=== PATIENT | male | born 1945 | race Native Hawaiian/Other Pacific Islander ===

== ENCOUNTER 2018-04-01 08:03 | Inpatient (IN) | payer MEDICAID ==
--- NOTE | 2018-04-01 08:33 | C.PDOC ---
History Of Present Illness 72 year old male presents to the ED with a chief complaint of persistent headache associated with dizziness that started early March. The patient reports prior ED visit for similar, he was diagnosed with vertigo. Per family, CT of the head was done, results were negative. Now the patient notes the headache is associated with neck pain. Denies vision changes, fever, chills, nausea, vomiting, and any other associated symptoms. Chief Complaint (Nursing): Headache History Per: Patient, Family History/Exam Limitations: no limitations Onset/Duration Of Symptoms: Days (x2 weeks) Current Symptoms Are (Timing): Still Present Associated Symptoms: denies: Nausea, Vomiting Recent travel outside of the [place]: No Past Medical History Reviewed: Historical Data, Nursing Documentation, Vital Signs Vital Signs: Last Vital Signs Temp 97.9 F 04/01/18 08:12 Pulse 105 H 04/01/18 08:12 Resp 18 04/01/18 08:12 BP 147/74 04/01/18 08:12 Pulse Ox 100 04/01/18 08:12 - Medical History PMH: Diabetes, HTN, Hyperlipidemia Family History: States: Unknown Family Hx - Social History Hx Tobacco Use: No Hx Alcohol Use: No Hx Substance Use: No - Immunization History Hx Tetanus Toxoid Vaccination: No Hx Influenza Vaccination: Yes Hx Pneumococcal Vaccination: Yes Review Of Systems Except As Marked, All Systems Reviewed And Found Negative. Constitutional: Negative for: Fever, Chills Eyes: Negative for: Vision Change Gastrointestinal: Negative for: Nausea, Vomiting Musculoskeletal: Positive for: Neck Pain (secondary to headache.) Neurological: Positive for: Headache, Dizziness Physical Exam - Physical Exam Appears: Well, Non-toxic, No Acute Distress Skin: Normal Color, Warm, Dry Head: Atraumatic, Normacephalic Eye(s): bilateral: Normal Inspection Oral Mucosa: Moist Neck: Normal ROM, Supple Chest: Symmetrical, No Deformity Cardiovascular: Rhythm Regular, No Murmur Respiratory: Normal Breath Sounds, No Rales, No Rhonchi, No Wheezing Gastrointestinal/Abdominal: Normal Exam, Soft, No Tenderness Extremity: Bilateral: Atraumatic, Normal Color And Temperature, Normal ROM ED Course And Treatment - Laboratory Results Result Diagrams: 04/01/18 08:54 04/01/18 08:54 ECG Rhythm: Sinus Rhythm Interpretation Of ECG: Incomplete right bundle. No ST elevation. Rate From EC O2 Sat by Pulse Oximetry: 100 (RA) Pulse Ox Interpretation: Normal Critical Care Time - Critical Care Note Total Time (in mins): 47 Documented critical care: time excludes all time spent performing seperately billable procedures. NIHSS Stroke Scale - How Severe is the Stoke Level of Consciousness: 0=Alert LOC to Questions: 0=Both comments correct LOC to commands: 0=Obeys both correctly Best Gaze: 0=Normal Visual: 0=No visual loss Facial: 0=Normal Motor Arm - Left: 0=No drift Motor Arm - Right: 0=No drift Motor Leg - Left: 0=No drift Motor Leg - Right: 0=No drift Limb Ataxia: 0=Absent Sensory: 0=Normal Best Language: 0=No aphasia Dysarthia: 0=Normal articulation Extinction & Inattention (Neglect): 0=Normal, no object Score: 0 Medical Decision Making Medical Decision Making: Initial plan: -CT Cervical Spine w/o contrast -CT Head w/o contrast -Blood sent -Reglan -Toradol -Urinalysis Progress/Update: CXR ordered. Received call from radiology, acute and chronic subdural hematoma. 9:50am : Paged Dr. Dye, left message with operating service. 10:01am: Spoke with Dr. Echevarria, recommended to admit patient to ICU, will consult. 10:09am: Spoke with Dr. Rey De Leon, accepted to ICU. 10:12am: Spoke with Dr. Carroll, accepted for admission. 10:26am: Dr. Rey Rizzo requested CT angio of head and neck. Disposition Discussed With .: Rogelio Carroll Doctor Will See Patient In The: Hospital - Disposition Disposition: HOSPITALIZED Disposition Time: 10:16 Condition: GUARDED Forms: [facility] (Armenian) - Clinical Impression Clinical Impression: Subdural hematoma - Scribe Statement The provider has reviewed the documentation as recorded by the Scribe (Jesi De Leon) Provider Attestation: All medical record entries made by the Scribe were at my direction and personally dictated by me. I have reviewed the chart and agree that the record accurately reflects my personal performance of the history, physical exam, medical decision making, and the department course for this patient. I have also personally directed, reviewed, and agree with the discharge instructions and disposition.
[2018-04-01 08:57] LABS: BASO # 0.1 K/uL (0.0-0.2); BASO % 0.5 % (0.0-2.0); EOS # 0.3 K/uL (0.0-0.7); EOS % 2.8 % (0.0-4.0); HEMOGLOBIN 11.6 g/dL (12.0-18.0); LYMPH # 5.3 K/uL (1.0-4.3); LYMPH % 48.9 % (20.0-40.0); MEAN CELL VOLUME 70.6 fL (80.0-94.0); MEAN CORPUSCULAR HEMOGLOBIN 22.2 pg (27.0-31.0); MEAN CORPUSCULAR HGB CONC 31.5 g/dL (33.0-37.0); MEAN PLATELET VOLUME 7.5 fL (7.2-11.7); MONO # 0.4 K/uL (0.0-0.8); MONO % 3.8 % (0.0-10.0); NEUT # 4.8 K/uL (1.8-7.0); RBC 5.23 Mil/uL (4.40-5.90)
[2018-04-01 08:58] LABS: WHITE BLOOD COUNT 10.9 K/uL (4.8-10.8)
[2018-04-01 09:05] LABS: URINE BILIRUBIN NEGATIVE (NEGATIVE); URINE BLOOD NEGATIVE (NEGATIVE); URINE CLARITY Clear (Clear); URINE COLOR Yellow (YELLOW); URINE GLUCOSE (UA) NORMAL (Normal); URINE LEUKOCYTE ESTERASE NEG Leu/uL (Negative); URINE PROTEIN NEGATIVE (NEGATIVE); URINE UROBILINOGEN NORMAL mg/dL (0.2-1.0)
[2018-04-01 09:18] LABS: ALB/GLOB RATIO 1.8 (1.0-2.1); ALBUMIN 4.8 g/dL (3.5-5.0); ALT/SGPT 88 U/L (21-72); AST/SGOT 49 U/L (17-59); BLOOD UREA NITROGEN 17 mg/dL (9-20); CALCIUM 9.2 mg/dl (8.6-10.4); GFR NON-AFRICAN AMERICAN > 60
--- NOTE | 2018-04-01 09:49 | CT ---
Date of service: 04/01/2018 PROCEDURE: CT HEAD WITHOUT CONTRAST. HISTORY: R/O Bleed COMPARISON: None available. TECHNIQUE: Axial computed tomography images were obtained through the head/brain without intravenous contrast. Radiation dose: Total exam DLP = 1145.85 mGy-cm. This CT exam was performed using one or more of the following dose reduction techniques: Automated exposure control, adjustment of the mA and/or kV according to patient size, and/or use of iterative reconstruction technique. FINDINGS: HEMORRHAGE: There is moderate-sized left frontal parietal convexity acute on chronic subdural hematoma which measures 1.8 cm in maximum width. There is mild mass effect on the underlying frontal and parietal lobes with effacement of the cortical sulci, mass effect on the left lateral ventricle and 4 mm midline shift from left to right. There are coarse atherosclerotic calcifications in the cavernous carotid arteries. The BRAIN: [place]-white matter differentiation is preserved. There is no territorial infarction. The midline sagittal structures are normal. VENTRICLES: The ventricles are normal in size, shape and configuration. CALVARIUM: There is no calvarial fracture or extracranial soft tissue swelling. PARANASAL SINUSES: Predominantly clear. MASTOID AIR CELLS: Predominantly clear. OTHER FINDINGS: None. IMPRESSION: Moderate sized left frontal parietal convexity acute on chronic subdural hematoma measuring 1.8 cm in maximum with with mild local and regional mass effect and 4 mm midline shift from left to right. Critical findings were discussed with Dr. Clemente Benedict in the ER on 04/01/2018 at 9:40 a.m.
--- NOTE | 2018-04-01 10:00 | CT ---
Date of service: 04/01/2018 PROCEDURE: CT Cervical Spine without contrast HISTORY: neck pain COMPARISON: None available. TECHNIQUE: Axial computed tomography images were obtained of the cervical spine without the use of intravenous contrast. Coronal and sagittal reformatted images were created and reviewed. Radiation dose: Total exam DLP = 642.62 mGy-cm. This CT exam was performed using one or more of the following dose reduction techniques: Automated exposure control, adjustment of the mA and/or kV according to patient size, and/or use of iterative reconstruction technique. FINDINGS: VERTEBRAE: There is normal alignment of the cervical vertebral bodies. There is straightening of the cervical spine with loss of normal cervical lordosis. Vertebral height is normal. Bone mineralization is normal. There is no acute fracture or traumatic anterior listhesis. The craniocervical junction is normal. The atlantoaxial joint normal. DISCS/SPINAL CANAL/NEURAL FORAMINA: There is multilevel degenerative disc disease due to combination of disc osteophyte complexes, uncovertebral joint hypertrophy and multilevel facet arthropathy with variable degree of neural foraminal narrowing without spinal canal stenosis. PARASPINAL SOFT TISSUES: No prevertebral soft tissue thickening. The paraspinous soft tissues are normal. OTHER FINDINGS: No apical pneumothorax. There is a 4 mm nodule in the left upper lobe. IMPRESSION: No acute fracture or traumatic anterior listhesis. 4 mm nodule in the left upper lobe. A dedicated CT scan of the thorax on a nonemergent basis is recommended for complete evaluation of the lungs. The final report is tagged to the PA review folder.
--- NOTE | 2018-04-01 10:16 | RAD ---
Date of service: 04/01/2018 HISTORY: admit COMPARISON: 01/27/2015 FINDINGS: LUNGS: The lungs are well inflated and clear. There is mild pulmonary venous congestion. No focal consolidation. There are tiny calcified granulomas in the right upper lobe. PLEURA: No pleural effusions or pneumothorax. CARDIOVASCULAR: The heart is normal in size. No aortic atherosclerotic calcifications present. OSSEOUS STRUCTURES: Within normal limits for the patient's age. VISUALIZED UPPER ABDOMEN: Normal. OTHER FINDINGS: None. IMPRESSION: No active pulmonary disease. No interval change.
[2018-04-01 10:17] LABS: PROTHROMBIN TIME 10.9 SECONDS (9.7-12.2)
--- NOTE | 2018-04-01 10:47 | CP.PCM.CON ---
History of Present Illness - History of Present Illness History of Present Illness: 72 y/o male with pmx of HTN, DM and hyperurecemia presents to hospital with c/o headaches worsening over last 2 weeks. Patient went to a hospital in [facility] where patient had a CT head and was discharged. Patient's headaches worsening and come to ER today. Denies any visual disturbance, denies any bounding pain, deneis any numbness or tingling. Pmx: HTN, DM Psurg hs: Allergies: NKDA -SH:denies etoh, deneis illicit drug use Review of Systems - Review of Systems All systems: reviewed and no additional remarkable complaints except Past Patient History - Infectious Disease Hx of Infectious Diseases: None - Tetanus Immunizations Tetanus Immunization: Unknown - Past Medical History & Family History Past Family History: Reviewed and not pertinent - Past Social History Smoking Status: Never Smoked - CARDIAC Hx Hypertension: Yes - ENDOCRINE/METABOLIC Hx Diabetes Mellitus Type 1: Yes - PSYCHIATRIC Hx Substance Use: No - ANESTHESIA Hx Anesthesia: No Meds Allergies/Adverse Reactions: Allergies Allergy/AdvReac Type Severity Reaction Status Date / Time No Known Allergies Allergy Unverified 11/27/12 22:42 Physical Exam - Head Exam Head Exam: ATRAUMATIC, NORMAL INSPECTION, NORMOCEPHALIC - Eye Exam Eye Exam: EOMI Pupil Exam: NORMAL ACCOMODATION, PERRL - ENT Exam ENT Exam: Mucous Membranes Moist - Respiratory Exam Respiratory Exam: Clear to Auscultation Bilateral, NORMAL BREATHING PATTERN - Cardiovascular Exam Cardiovascular Exam: REGULAR RHYTHM, +S1, +S2, Systolic Murmur - GI/Abdominal Exam GI & Abdominal Exam: Normal Bowel Sounds, Soft. absent: Tenderness - Extremities Exam Extremities exam: Positive for: normal inspection. Negative for: pedal edema - Neurological Exam Neurological exam: Alert, CN II-XII Intact, Oriented x3 - Skin Skin Exam: Normal Color, Warm Results - Vital Signs Recent Vital Signs: Last Vital Signs Temp 97.9 F 04/01/18 08:12 Pulse 97 H 04/01/18 10:09 Resp 17 04/01/18 10:09 BP 132/75 04/01/18 10:09 Pulse Ox 100 04/01/18 10:28 - Labs Result Diagrams: 04/01/18 08:54 04/01/18 08:54 Labs: Laboratory Results - last 24 hr 0104/01/18 04/01/18 08:54 08:54 09:00 WBC 10.9 H D RBC 5.23 Hgb 11.6 L Hct 36.9 MCV 70.6 L MCH 22.2 L MCHC 31.5 L RDW 15.0 H Plt Count 269 MPV 7.5 Neut % (Auto) 44.0 L Lymph % (Auto) 48.9 H [place] % (Auto) 3.8 Eos % (Auto) 2.8 Baso % (Auto) 0.5 Neut # (Auto) 4.8 Lymph # (Auto) 5.3 H [place] # (Auto) 0.4 Eos # (Auto) 0.3 Baso # (Auto) 0.1 PT INR APTT Sodium 140 Potassium 4.7 Chloride 105 Carbon Dioxide 25 Anion Gap 15 BUN 17 Creatinine 1.1 Est GFR ( Amer) > 60 Est GFR (Non-Af Amer) > 60 POC Glucose (mg/dL) Random Glucose 100 Calcium 9.2 Total Bilirubin 0.7 AST 49 ALT 88 H D Alkaline Phosphatase 80 Total Protein 7.5 Albumin 4.8 Globulin 2.7 Albumin/Globulin Ratio 1.8 Urine Color Yellow Urine Clarity Clear Urine pH 5.0 Ur Specific [place] 1.008 Urine Protein Negative Urine Glucose (UA) Normal Urine Ketones Negative Urine Blood Negative Urine Nitrate Negative Urine Bilirubin Negative Urine Urobilinogen Normal Ur Leukocyte Esterase Neg Urine WBC (Auto) < 1 Urine RBC (Auto) < 1 Blood Type Antibody Screen 04/01/18 04/01/18 04/01/18 10:03 10:03 10:36 WBC RBC Hgb Hct MCV MCH MCHC RDW Plt Count MPV Neut % (Auto) Lymph % (Auto) [place] % (Auto) Eos % (Auto) Baso % (Auto) Neut # (Auto) Lymph # (Auto) [place] # (Auto) Eos # (Auto) Baso # (Auto) PT 10.9 INR 1.0 APTT 31 Sodium Potassium Chloride Carbon Dioxide Anion Gap BUN Creatinine Est GFR ( Amer) Est GFR (Non-Af Amer) POC Glucose (mg/dL) 98 Random Glucose Calcium Total Bilirubin AST ALT Alkaline Phosphatase Total Protein Albumin Globulin Albumin/Globulin Ratio Urine Color Urine Clarity Urine pH Ur Specific [place] Urine Protein Urine Glucose (UA) Urine Ketones Urine Blood Urine Nitrate Urine Bilirubin Urine Urobilinogen Ur Leukocyte Esterase Urine WBC (Auto) Urine RBC (Auto) Blood Type O POSITIVE Antibody Screen Negative Assessment & Plan - Assessment and Plan (Free Text) Assessment: HEADache: suspect chronic subdural (suspect slow increase over last 2 weeks), check CT head with IV contrast r/o AV malformation, obtain MRI STAT -NPO -BGm q6hrs -q1hrs neuro exam -monitor BP to keep SBP <120 -neurosurgery eval -avoid antiplatelet, avoid anticoagulants seizure ppx: keppra x 5days -DVT scds -pud ppx protonix Patient remains hemodynamically stable. -multiple diagnostic tests pending Prognsois guarded - Date & Time Date: 04/01/18 Time: 10:51
[2018-04-01] MEDS ORDERED: Sodium Chloride 0.9% 1,000 ML IV SCH (11:00)
[2018-04-01] MEDS ORDERED: Iodixanol 320 MG/ML 100 ML BOTTLE IV ONE (11:37)
--- NOTE | 2018-04-01 12:42 | CT ---
Date of service: 04/01/2018 PROCEDURE: CTA HEAD AND NECK WITH CONTRAST HISTORY: Intracranial bleeding COMPARISON: None available. TECHNIQUE: Initial noncontrast head CT was performed. Subsequently, CT angiogram of the head and neck were performed after the intravenous administration of 80 mL of Omnipaque 350. Contiguous 1.5mm thick images were obtained in the axial plane of the neck. 2-D coronal and sagittal MPR images were obtained. Imaging postprocessing was performed with 3-D images also obtained. A delayed contrast head CT was also obtained. This CT exam was performed using one or more of the following dose reduction techniques: Automated exposure control, adjustment of the mA and/or kV according to patient size, and/or use of iterative reconstruction technique. Contrast dose: 100 mL Visipaque 320 Radiation dose: Total exam DLP = 665.33 mGy-cm. FINDINGS: HEAD: Right: The intracranial internal carotid artery, and anterior and middle cerebral arteries are widely patent. Left: The intracranial internal carotid artery, and anterior and middle cerebral arteries are widely patent. Posterior circulation: The visualized intracranial vertebral arteries, basilar artery and posterior cerebral arteries are widely patent. There is no endoluminal filling defect to suggest thrombus. There is no intracranial saccular aneurysm. NECK: There is a three vessel aortic arch. There is no stenosis at the origins of the great vessels at the level of the aortic arch. There are coarse atherosclerotic calcifications in the carotid bulbs and left proximal internal carotid artery. There are mild eccentric soft plaques in the left proximal internal carotid artery.. Right Carotid: On the right, the common carotid, internal carotid and external carotid arteries are widely patent. There is no hemodynamically significant stenosis in the internal carotid artery by NASCET criteria. Left Carotid: On the left, the common carotid, internal carotid and external carotid arteries are widely patent. There is no hemodynamically significant stenosis in the internal carotid artery by NASCET criteria. The vertebral arteries are widely patent. The visualized soft tissues of the neck are normal. The lung apices are clear. IMPRESSION: 1. No evidence of endoluminal thrombus,occlusion or definite significant stenosis in the intracranial arteries. 2. No evidence of hemodynamically significant stenosis in the internal carotid arteries. 3. Patent bilateral vertebral arteries.
[2018-04-01] MEDS ORDERED: Dextrose 50% SYRINGE Inj (50 ml) ONE (18:30)
[2018-04-01] MEDS ORDERED: Dextrose 50% SYRINGE Inj (50 ml) IVP STA (18:31)
--- NOTE | 2018-04-01 22:24 | CP.PCM.HP ---
Present on Admission - Present on Admission Any Indicators Present on Admission: No Past Patient History - Infectious Disease Hx of Infectious Diseases: None - Tetanus Immunizations Tetanus Immunization: Unknown - Past Medical History & Family History Past Medical History?: Yes - Past Social History Smoking Status: Never Smoked - CARDIAC Hx Cardiac Disorders: Yes Hx Angina: No Hx Atrial Fibrillation: No Hx Cardia Arrhythmia: No Hx Circulatory Problems: No Hx Congestive Heart Failure: No Hx Heart Attack: No Hx Heart Murmur: No Hx Heart Transplant: No Hx Hypercholesterolemia: Yes Hx Hypertension: Yes Hx Hypotension: No Hx Internal Defibrillator: No Hx Mitral Valve Prolapse: No Hx Pacemaker: No Hx Peripheral Edema: No Hx Peripheral Vascular Disease: No - PULMONARY Hx Respiratory Disorders: No - NEUROLOGICAL Hx Neurological Disorder: Yes Hx Dizziness: Yes Hx Vertigo: Yes Other/Comment: Subdural hematoma - HEENT Hx HEENT Problems: No - RENAL Hx Chronic Kidney Disease: No - ENDOCRINE/METABOLIC Hx Endocrine Disorders: Yes Hx Diabetes Mellitus Type 2: Yes - HEMATOLOGICAL/ONCOLOGICAL Hx Blood Disorders: No - INTEGUMENTARY Hx Dermatological Problems: Yes Other/Comment: Prior bx of lump on back - MUSCULOSKELETAL/RHEUMATOLOGICAL Hx Musculoskeletal Disorders: No Hx Falls: No - GASTROINTESTINAL Hx Gastrointestinal Disorders: No Other/Comment: Prior endoscopy/colonoscopy - GENITOURINARY/GYNECOLOGICAL Hx Genitourinary Disorders: No - PSYCHIATRIC Hx Psychophysiologic Disorder: No Hx Substance Use: No - SURGICAL HISTORY Hx Surgeries: No - ANESTHESIA Hx Anesthesia: Yes Hx Anesthesia Reactions: No Hx Malignant Hyperthermia: No Has any member of the family had a problem w/ anesthesia?: No Meds Allergies/Adverse Reactions: Allergies Allergy/AdvReac Type Severity Reaction Status Date / Time No Known Allergies Allergy Unverified 11/27/12 22:42 Results - Vital Signs Recent Vital Signs: Last Vital Signs Temp 98.9 F 04/01/18 20:00 Pulse 75 04/01/18 21:20 Resp 12 04/01/18 21:20 BP 117/68 04/01/18 20:58 Pulse Ox 98 04/01/18 21:20 - Labs Result Diagrams: 04/06/18 06:24 04/06/18 06:21 Labs: Laboratory Results - last 24 hr 04/01/18 04/01/18 04/01/18 08:54 08:54 09:00 WBC 10.9 H D RBC 5.23 Hgb 11.6 L Hct 36.9 MCV 70.6 L MCH 22.2 L MCHC 31.5 L RDW 15.0 H Plt Count 269 MPV 7.5 Neut % (Auto) 44.0 L Lymph % (Auto) 48.9 H [place] % (Auto) 3.8 Eos % (Auto) 2.8 Baso % (Auto) 0.5 Neut # (Auto) 4.8 Lymph # (Auto) 5.3 H [place] # (Auto) 0.4 Eos # (Auto) 0.3 Baso # (Auto) 0.1 PT INR APTT Sodium 140 Potassium 4.7 Chloride 105 Carbon Dioxide 25 Anion Gap 15 BUN 17 Creatinine 1.1 Est GFR ( Amer) > 60 Est GFR (Non-Af Amer) > 60 POC Glucose (mg/dL) Random Glucose 100 Calcium 9.2 Total Bilirubin 0.7 AST 49 ALT 88 H D Alkaline Phosphatase 80 Total Protein 7.5 Albumin 4.8 Globulin 2.7 Albumin/Globulin Ratio 1.8 Urine Color Yellow Urine Clarity Clear Urine pH 5.0 Ur Specific [place] 1.008 Urine Protein Negative Urine Glucose (UA) Normal Urine Ketones Negative Urine Blood Negative Urine Nitrate Negative Urine Bilirubin Negative Urine Urobilinogen Normal Ur Leukocyte Esterase Neg Urine WBC (Auto) < 1 Urine RBC (Auto) < 1 Blood Type Antibody Screen 04/01/18 04/01/18 04/01/18 10:03 10:03 10:36 WBC RBC Hgb Hct MCV MCH MCHC RDW Plt Count MPV Neut % (Auto) Lymph % (Auto) [place] % (Auto) Eos % (Auto) Baso % (Auto) Neut # (Auto) Lymph # (Auto) [place] # (Auto) Eos # (Auto) Baso # (Auto) PT 10.9 INR 1.0 APTT 31 Sodium Potassium Chloride Carbon Dioxide Anion Gap BUN Creatinine Est GFR ( Amer) Est GFR (Non-Af Amer) POC Glucose (mg/dL) 98 Random Glucose Calcium Total Bilirubin AST ALT Alkaline Phosphatase Total Protein Albumin Globulin Albumin/Globulin Ratio Urine Color Urine Clarity Urine pH Ur Specific [place] Urine Protein Urine Glucose (UA) Urine Ketones Urine Blood Urine Nitrate Urine Bilirubin Urine Urobilinogen Ur Leukocyte Esterase Urine WBC (Auto) Urine RBC (Auto) Blood Type O POSITIVE Antibody Screen Negative 01/13/19 01/13/19 01/13/19 18:16 18:18 18:47 WBC RBC Hgb Hct MCV MCH MCHC RDW Plt Count MPV Neut % (Auto) Lymph % (Auto) [place] % (Auto) Eos % (Auto) Baso % (Auto) Neut # (Auto) Lymph # (Auto) [place] # (Auto) Eos # (Auto) Baso # (Auto) PT INR APTT Sodium Potassium Chloride Carbon Dioxide Anion Gap BUN Creatinine Est GFR ( Amer) Est GFR (Non-Af Amer) POC Glucose (mg/dL) 69 75 203 H Random Glucose Calcium Total Bilirubin AST ALT Alkaline Phosphatase Total Protein Albumin Globulin Albumin/Globulin Ratio Urine Color Urine Clarity Urine pH Ur Specific [place] Urine Protein Urine Glucose (UA) Urine Ketones Urine Blood Urine Nitrate Urine Bilirubin Urine Urobilinogen Ur Leukocyte Esterase Urine WBC (Auto) Urine RBC (Auto) Blood Type Antibody Screen
[2018-04-01] MEDS ORDERED: HYDROmorphone 0.5 mg/0.5 ml ISec IVP STA (23:14)
[2018-04-01] MEDS: Dextrose 5%/0.9% NS 1,000 ML IV SCH (23:15)
[2018-04-01] MEDS: Dextrose 5%/0.9% NS 1,000 ML IV ONE (23:20)
[2018-04-02] MEDS ORDERED: HYDROmorphone 0.5 mg/0.5 ml ISec IVP STA ×2 (03:40→20:24)
[2018-04-02 06:21] LABS: BASO # 0.1 K/uL (0.0-0.2); BASO % 0.6 % (0.0-2.0); EOS # 0.3 K/uL (0.0-0.7); EOS % 2.4 % (0.0-4.0); HEMOGLOBIN 11.2 g/dL (12.0-18.0); LYMPH # 6.1 K/uL (1.0-4.3); LYMPH % 53.1 % (20.0-40.0); MEAN CELL VOLUME 70.5 fL (80.0-94.0); MEAN CORPUSCULAR HEMOGLOBIN 22.2 pg (27.0-31.0); MEAN CORPUSCULAR HGB CONC 31.5 g/dL (33.0-37.0); MEAN PLATELET VOLUME 8.1 fL (7.2-11.7); MONO # 0.5 K/uL (0.0-0.8); MONO % 4.5 % (0.0-10.0); NEUT # 4.5 K/uL (1.8-7.0); NEUT % 39.4 % (50.0-75.0); NRBC % 0.1 % (0.0-2.0); RBC 5.04 Mil/uL (4.40-5.90); RED CELL DISTRIBUTION WIDTH 14.9 % (11.5-14.5); WHITE BLOOD COUNT 11.4 K/uL (4.8-10.8)
--- NOTE | 2018-04-02 06:25 | HP ---
CHIEF COMPLAINT: Headache for last two weeks. HISTORY OF PRESENT ILLNESS: This is a 72-year-old [place] male with history of diabetes, hypertension who is compliant with his medication and followup, and he developed headache about two weeks ago. According to the patient in the past, he did visit emergency room and then he presented to emergency room yesterday again, and according to the patient, CT head was done and it was discharged. Now, his headache got worse, he came to emergency room. He denies any history of blurring of vision, photophobia. He has some neck pain, but he denies any neck rigidity. He denies any fever, chills, rigors. He denies any history of loss of consciousness. He denies any history of tongue bite, seizure like activity. He denies any tremors, shaking. He denies any alcohol use. He denies any cough, sore throat, runny nose. He denies any polyuria, polydipsia polyphagia. He denies any history of hematuria or pyuria. He denies any sneezing, itching eyes, or itching nose. No abdominal pain, no joint pain, no hip pain. No fever. ALLERGIES: UNKNOWN ALLERGIES. PAST MEDICAL HISTORY: Diabetes, hypertension. SOCIAL HISTORY: Nonsmoker. Non-ETOH user. CURRENT MEDICATIONS: Lipitor, Protonix, allopurinol, lisinopril, glimepiride, metformin. PHYSICAL EXAMINATION: GENERAL: An elderly male, in no acute distress, comfortable. VITAL SIGNS: Blood pressure 117/68, pulse 77, respiratory rate 14, temperature 98. SKIN: Senile turgor. No bruits. No purpura. No petechiae. No ecchymosis. No skin cuts. HEENT: Atraumatic and normocephalic. Negative pallor. Negative jaundice. Extraocular movements are intact. NECK: Supple. No JVD. No lymph nodes. No thyromegaly. No carotid bruits. CHEST WALL: Bilateral symmetrical expansion. LUNGS: Bilaterally equal. No rale, no rhonchi. CARDIOVASCULAR SYSTEM: PMI not localized. S1 and S2 regular. No heave, no thrill. ABDOMEN: Soft, nontender. Bowel sounds are positive. RECTAL: Unable to do. The patient is not willing to cooperate. EXTREMITIES: No clubbing, cyanosis, or edema. CENTRAL NERVOUS SYSTEM: The patient is awake, alert, and oriented x3. Cranial nerves II through XII are normal. Power 5/5 x4. Plantars are downgoing. The patient's gait is unsteady, and he gets dizzy upon standing. ASSESSMENT: 1. Subdural hematoma, etiology unknown, there is no history of injury, ____ like a chronic subdural hematoma, rule out atriovenous malformation. 2. Hypertension. 3. Diabetes. 4. Gout. PLAN: Admit. Detailed orders written. Seen and examined. Rogelio Carroll MD
[2018-04-02 06:26] LABS: INR 1.1; PROTHROMBIN TIME 11.5 SECONDS (9.7-12.2)
[2018-04-02 06:33] LABS: ALB/GLOB RATIO 1.7 (1.0-2.1); ALBUMIN 4.4 g/dL (3.5-5.0); ALT/SGPT 75 U/L (21-72); AST/SGOT 45 U/L (17-59); BLOOD UREA NITROGEN 16 mg/dL (9-20); CALCIUM 8.5 mg/dl (8.6-10.4); GFR NON-AFRICAN AMERICAN > 60
[2018-04-02] MEDS ORDERED: Bacitracin 50,000 UNIT in Sodium Chloride 0.9% Irrig 1,000 ML IR SCH (07:30)
--- NOTE | 2018-04-02 07:30 | CP.PCM.PCO ---
Physician Communication Note - Physician Communication Note Physician Communication Note: medically stable for OR with vaerage risk for GA
[2018-04-02] MEDS ORDERED: cefTRIAXone 1 gm 1 GM/100 ML BAG IVPB ONE (07:32)
[2018-04-02] MEDS ORDERED: Lidocaine/Epinephrine 1% 1:100000 10 ML IJ ONE (07:32)
[2018-04-02] MEDS ORDERED: Thrombin Topical 5,000 Int Units Spray Kit ONE (07:32)
[2018-04-02] MEDS ORDERED: Absorbable Gelatin Sponge Size 12-7 ONE ×2 (07:33→08:41)
[2018-04-02] MEDS ORDERED: Bacitracin Ointment 30 GM TUBE ONE (07:52)
[2018-04-02] MEDS ORDERED: Bacitracin 150,000 UNIT in Sodium Chloride 0.9% Irrig 3,000 ML IR SCH (07:53)
[2018-04-02] MEDS ORDERED: Propofol 10 mg/ml Inj (20 ML) ONE (08:03)
[2018-04-02] MEDS ORDERED: Succinylcholine Chloride 20 mg/ml Syr (5 ml) IV ONE (08:04)
[2018-04-02] MEDS ORDERED: Rocuronium 10 mg/ml (5 ml) ONE (08:04)
[2018-04-02] MEDS ORDERED: Lidocaine Hydrochloride 5 ML INJ ONE (08:09)
--- NOTE | 2018-04-02 08:10 | CON ---
DATE: 04/01/2018 HISTORY OF PRESENT ILLNESS: This is a 72-year-old gentleman who has been suffering with headache and neck pain for a couple of weeks. Apparently, he presented himself with the same symptoms to [facility] in [place] on , had a CT that he was told was normal and sent out. In any case, his symptoms have persisted worsened over the past few days, complains of intense left-sided headache with some left-sided neck pain. Denies any motor or sensory symptoms or other neurological phenomenon. PAST MEDICAL HISTORY: Most significant for gout, hypertension and diabetes. MEDICATIONS: He is on oral agents. Medications are documented in the EMR. The rest of his medical records reviewed in the EMR. PHYSICAL EXAMINATION NEUROLOGIC: He has a GCS of 15. Bright, awake, alert. He . He does answer questions appropriately. According to his daughter, his speech is appropriate. Pupils are equal and reactive. EOMs are full. Face is symmetric. He has 5/5 strength throughout. He has very minimal right pronator drift. Sensory exam is grossly intact. Reflexes within normal limits. Gait not tested here in the ER. DIAGNOSTIC DATA: CT of the brain shows a moderate-sized left frontal mixed-density subdural hematoma. The majority of it is subacute with a small amount of acute component. There is impressive compression of the left ventricle and about 4 mm of midline shift. IMPRESSION AND PLAN: At one hand, the patient only has a headache, he is neurologically intact; however, this is a pretty good size of subdural. I had an extensive conversation with the patient and his daughter, indicating that this really should be evacuated based on the symptoms, the size and the risk of further bleeding. I went through the nature of this recommendation with them including alternative, potential risks and complications of the surgery, chance of success, hospitalization and recovery time. I answered all of their questions. I was confident that they fully understood. They agreed to proceed. We will attempt to have this scheduled for tomorrow. In the interim, he will be admitted to the ICU and seen by their staff and hopefully cleared for the surgery from the medical standpoint. Gavino Hardin MD
[2018-04-02] MEDS ORDERED: Neostigmine 1:1000 (1 mg/ml) Inj ONE (09:10)
[2018-04-02] MEDS ORDERED: Labetalol 5mg/ml (4ml) ONE (09:11)
[2018-04-02] MEDS: Dextrose 5%/0.9% NS 1,000 ML IV SCH (12:50)
[2018-04-02] MEDS: Dextrose 5%/0.9% NS 1,000 ML IV ONE ×2 (17:00→18:00)
--- NOTE | 2018-04-02 21:31 | CARD ---
APPROVED REPORT Date of service: 04/01/2018 EKG Measurement Heart [id number] <Conclusion> Normal sinus rhythm Incomplete right bundle branch block Borderline ECG
--- NOTE | 2018-04-02 21:55 | CP.CCUPN ---
<Liam Garcia - Last Filed: 04/02/18 21:46> CCU Subjective - Physician Review Subjective (Free Text): PGY-[address] Yan service Patient is seen and examined at bedside. Patient's grand daugther is by patient's side. Patient s/p left craniotomy, Patient reports no acute events post surgery. complains of mild pain on side of incision in head. Patient denies fever, chills, visual or hearing disturbances, headaches, chest pain, sob, n/v, abdominal pain. Critical Care Time Spent (in minutes): 35 CCU Objective - Vital Signs / Intake & Output Vital Signs (Last 4 hours): Vital Signs Pulse Resp BP Pulse Ox 04/02/18 18:50 93 H 17 98 04/02/18 18:40 90 15 98 04/02/18 18:30 87 18 98 04/02/18 18:24 91 H 15 102/51 L 98 04/02/18 18:20 88 16 98 04/02/18 18:10 94 H 19 96 04/02/18 18:00 94 H 17 96 04/02/18 17:50 93 H 14 94 L Intake and Output (Last 8hrs): Intake & Output 04/02/18 04/02/18 04/02/18 06:59 14:59 22:59 Intake Total 700 1500 375 Output Total 325 1450 505 Balance 375 50 -130 Weight 195 lb 12.328 oz Intake: IV 800 Intake, IV Amount 700 700 375 Left Antecubital 0 0 Right AC Y connection 100 Right Antecubital 600 700 375 Oral 0 0 Output: Drainage 25 Left Medial Parietal 25 Urine 325 1450 480 Urethral (Murphy) 600 480 Urine, Voided 325 450 Emesis 0 0 Other: # Voids Urine, Voided 1 # Bowel Movements 0 0 - Physical Exam Head: Positive for: Other (dressing left parietal area of head, c/d/i ) Pupils: Positive for: PERRL Extroacular Muscles: Positive for: EOMI Conjunctiva: Positive for: Normal Mouth: Positive for: Moist Mucous Membranes Nose (Internal): Positive for: Normal Inspection Neck: Positive for: Normal Range of Motion Respiratory/Chest: Positive for: Clear to Auscultation. Negative for: Wheezes, Decreased Breath Sounds, Rales, Rhonchi Cardiovascular: Positive for: Regular Rate and Rhythm, Normal S1, S2 Abdomen: Positive for: Normal Bowel Sounds. Negative for: Tenderness, Distention Upper Extremity: Positive for: Normal Inspection Lower Extremity: Positive for: Normal Inspection Neurological: Positive for: GCS=15, CN II-XII Intact, Speech Normal Skin: Positive for: Warm, Dry, Normal Color Psychiatric: Positive for: Alert, Oriented x 3, Normal Insight, Normal Concentration, Normal Affect, Normal Mood - Medications Active Medications: Active Medications Generic Name Dose Route Start Last Admin Trade Name Freq PRN Reason Stop Dose Admin Acetaminophen 650 mg 04/02/18 20:14 04/02/18 20:43 Tylenol 325mg Tab PO 650 mg Q6 PRN Administration Pain, Mild (1-3) Levetiracetam 250 mg/ Sodium 102.5 mls @ 420 mls/hr 04/01/18 11:00 04/02/18 11:25 Chloride IVPB 420 mls/hr Q12H WALE Administration Dextrose/Sodium Chloride 1,000 mls @ 75 mls/hr 04/01/18 23:30 04/02/18 12:50 Dextrose 5%/0.9% Ns 1000 Ml IV Not Given .[id number] WALE Pantoprazole Sodium 40 mg 04/02/18 10:00 04/02/18 12:36 Protonix Inj IVP 40 mg DAILY WALE Administration - Patient Studies Lab Studies: Microbiology Studies 04/01/18 21:51 MRSA Culture (Admit) - Final Nose MRSA NOT DETECTED Lab Studies 04/02/18 04/02/18 04/02/18 Range/Units 18:30 12:15 06:13 WBC (4.8-10.8) K/uL RBC (4.40-5.90) Mil/uL Hgb (12.0-18.0) g/dL Hct (35.0-51.0) % MCV (80.0-94.0) fL MCH (27.0-31.0) pg MCHC (33.0-37.0) g/dL RDW (11.5-14.5) % Plt Count (130-400) K/uL MPV (7.2-11.7) fL Neut % (Auto) (50.0-75.0) % Lymph % (Auto) (20.0-40.0) % Sanders % (Auto) (0.0-10.0) % Eos % (Auto) (0.0-4.0) % Baso % (Auto) (0.0-2.0) % Neut # (Auto) (1.8-7.0) K/uL Lymph # (Auto) (1.0-4.3) K/uL Sanders # (Auto) (0.0-0.8) K/uL Eos # (Auto) (0.0-0.7) K/uL Baso # (Auto) (0.0-0.2) K/uL PT 11.5 (9.7-12.2) SECONDS INR 1.1 APTT 31 (21-34) SECONDS Sodium (132-148) mmol/L Potassium (3.6-5.2) mmol/L Chloride (98-107) mmol/L Carbon Dioxide (22-30) mmol/L Anion Gap (10-20) BUN (9-20) mg/dL Creatinine (0.8-1.5) mg/dL Est GFR ( Amer) Est GFR (Non-Af Amer) POC Glucose (mg/dL) 128 H 174 H (65-110) mg/dL Random Glucose (75-110) mg/dL Calcium (8.6-10.4) mg/dl Phosphorus (2.5-4.5) mg/dL Magnesium (1.6-2.3) mg/dL Total Bilirubin (0.2-1.3) mg/dL AST (17-59) U/L ALT (21-72) U/L Alkaline Phosphatase (38-126) U/L Total Protein (6.3-8.3) g/dL Albumin (3.5-5.0) g/dL Globulin (2.2-3.9) gm/dL Albumin/Globulin Ratio (1.0-2.1) 04/02/18 04/02/18 04/02/18 Range/Units 06:13 06:13 05:02 WBC 11.4 H (4.8-10.8) K/uL RBC 5.04 (4.40-5.90) Mil/uL Hgb 11.2 L (12.0-18.0) g/dL Hct 35.5 (35.0-51.0) % MCV 70.5 L (80.0-94.0) fL MCH 22.2 L (27.0-31.0) pg MCHC 31.5 L (33.0-37.0) g/dL RDW 14.9 H (11.5-14.5) % Plt Count 252 (130-400) K/uL MPV 8.1 (7.2-11.7) fL Neut % (Auto) 39.4 L (50.0-75.0) % Lymph % (Auto) 53.1 H (20.0-40.0) % Sanders % (Auto) 4.5 (0.0-10.0) % Eos % (Auto) 2.4 (0.0-4.0) % Baso % (Auto) 0.6 (0.0-2.0) % Neut # (Auto) 4.5 (1.8-7.0) K/uL Lymph # (Auto) 6.1 H (1.0-4.3) K/uL Sanders # (Auto) 0.5 (0.0-0.8) K/uL Eos # (Auto) 0.3 (0.0-0.7) K/uL Baso # (Auto) 0.1 (0.0-0.2) K/uL PT (9.7-12.2) SECONDS INR APTT (21-34) SECONDS Sodium 139 (132-148) mmol/L Potassium 4.5 (3.6-5.2) mmol/L Chloride 106 (98-107) mmol/L Carbon Dioxide 25 (22-30) mmol/L Anion Gap 12 (10-20) BUN 16 (9-20) mg/dL Creatinine 1.0 (0.8-1.5) mg/dL Est GFR ( Amer) > 60 Est GFR (Non-Af Amer) > 60 POC Glucose (mg/dL) 119 H (65-110) mg/dL Random Glucose 106 (75-110) mg/dL Calcium 8.5 L (8.6-10.4) mg/dl Phosphorus 3.5 (2.5-4.5) mg/dL Magnesium 1.9 (1.6-2.3) mg/dL Total Bilirubin 1.0 (0.2-1.3) mg/dL AST 45 (17-59) U/L ALT 75 H (21-72) U/L Alkaline Phosphatase 69 (38-126) U/L Total Protein 7.0 (6.3-8.3) g/dL Albumin 4.4 (3.5-5.0) g/dL Globulin 2.6 (2.2-3.9) gm/dL Albumin/Globulin Ratio 1.7 (1.0-2.1) 04/01/18 Range/Units 23:05 WBC (4.8-10.8) K/uL RBC (4.40-5.90) Mil/uL Hgb (12.0-18.0) g/dL Hct (35.0-51.0) % MCV (80.0-94.0) fL MCH (27.0-31.0) pg MCHC (33.0-37.0) g/dL RDW (11.5-14.5) % Plt Count (130-400) K/uL MPV (7.2-11.7) fL Neut % (Auto) (50.0-75.0) % Lymph % (Auto) (20.0-40.0) % Sanders % (Auto) (0.0-10.0) % Eos % (Auto) (0.0-4.0) % Baso % (Auto) (0.0-2.0) % Neut # (Auto) (1.8-7.0) K/uL Lymph # (Auto) (1.0-4.3) K/uL Sanders # (Auto) (0.0-0.8) K/uL Eos # (Auto) (0.0-0.7) K/uL Baso # (Auto) (0.0-0.2) K/uL PT (9.7-12.2) SECONDS INR APTT (21-34) SECONDS Sodium (132-148) mmol/L Potassium (3.6-5.2) mmol/L Chloride (98-107) mmol/L Carbon Dioxide (22-30) mmol/L Anion Gap (10-20) BUN (9-20) mg/dL Creatinine (0.8-1.5) mg/dL Est GFR ( Amer) Est GFR (Non-Af Amer) POC Glucose (mg/dL) 72 (65-110) mg/dL Random Glucose (75-110) mg/dL Calcium (8.6-10.4) mg/dl Phosphorus (2.5-4.5) mg/dL Magnesium (1.6-2.3) mg/dL Total Bilirubin (0.2-1.3) mg/dL AST (17-59) U/L ALT (21-72) U/L Alkaline Phosphatase (38-126) U/L Total Protein (6.3-8.3) g/dL Albumin (3.5-5.0) g/dL Globulin (2.2-3.9) gm/dL Albumin/Globulin Ratio (1.0-2.1) Laboratory Results - last 24 hr 04/01/18 04/02/18 04/02/18 23:05 05:02 06:13 WBC 11.4 H RBC 5.04 Hgb 11.2 L Hct 35.5 MCV 70.5 L MCH 22.2 L MCHC 31.5 L RDW 14.9 H Plt Count 252 MPV 8.1 Neut % (Auto) 39.4 L Lymph % (Auto) 53.1 H Sanders % (Auto) 4.5 Eos % (Auto) 2.4 Baso % (Auto) 0.6 Neut # (Auto) 4.5 Lymph # (Auto) 6.1 H Sanders # (Auto) 0.5 Eos # (Auto) 0.3 Baso # (Auto) 0.1 PT INR APTT Sodium Potassium Chloride Carbon Dioxide Anion Gap BUN Creatinine Est GFR ( Amer) Est GFR (Non-Af Amer) POC Glucose (mg/dL) 72 119 H Random Glucose Calcium Phosphorus Magnesium Total Bilirubin AST ALT Alkaline Phosphatase Total Protein Albumin Globulin Albumin/Globulin Ratio 04/02/18 04/02/18 04/02/18 06:13 06:13 12:15 WBC RBC Hgb Hct MCV MCH MCHC RDW Plt Count MPV Neut % (Auto) Lymph % (Auto) Sanders % (Auto) Eos % (Auto) Baso % (Auto) Neut # (Auto) Lymph # (Auto) Sanders # (Auto) Eos # (Auto) Baso # (Auto) PT 11.5 INR 1.1 APTT 31 Sodium 139 Potassium 4.5 Chloride 106 Carbon Dioxide 25 Anion Gap 12 BUN 16 Creatinine 1.0 Est GFR ( Amer) > 60 Est GFR (Non-Af Amer) > 60 POC Glucose (mg/dL) 174 H Random Glucose 106 Calcium 8.5 L Phosphorus 3.5 Magnesium 1.9 Total Bilirubin 1.0 AST 45 ALT 75 H Alkaline Phosphatase 69 Total Protein 7.0 Albumin 4.4 Globulin 2.6 Albumin/Globulin Ratio 1.7 04/02/18 18:30 WBC RBC Hgb Hct MCV MCH MCHC RDW Plt Count MPV Neut % (Auto) Lymph % (Auto) Sanders % (Auto) Eos % (Auto) Baso % (Auto) Neut # (Auto) Lymph # (Auto) Sanders # (Auto) Eos # (Auto) Baso # (Auto) PT INR APTT Sodium Potassium Chloride Carbon Dioxide Anion Gap BUN Creatinine Est GFR ( Amer) Est GFR (Non-Af Amer) POC Glucose (mg/dL) 128 H Random Glucose Calcium Phosphorus Magnesium Total Bilirubin AST ALT Alkaline Phosphatase Total Protein Albumin Globulin Albumin/Globulin Ratio Fingerstick Blood Sugar Results: 128 Critical Care Progress Note - Nutrition Nutrition: Nutrition Category Date Time Status Heart Healthy Diet [DIET] Diets 04/02/18 Dinner Active Assessment/Plan - Assessment and Plan (Free Text) Plan: Patient is a 72 year old male with pmhx of HTN, DM and hyperurecemia admitted for worsening headaches for 2 weeks, CT shows 1.8 acute on chronic subdural hematoma, planned for Left craniotomy for evacuation of hematoma 04/02 Neuro - AAOx3 - Patient stable after Left craniotomy - Q1h neuro exams - Neurosx consult - continue to follow recs - Dr Srivastava - no platelets, no anticoagulation - f/u am labs - tylenol PRN for pain Pulm - O2 via NC PRN Cardio - monitor BP, keep SBP less than 120 - continues to be Hemodynamically stable GI - HHD Renal - D5 NS at 75 mls - [address] ppx - protonix - SCDS Plan discussed with Dr Farrah Garcia, PGY-1 - Date & Time Date: 04/02/18 Time: 22:00 <Anahi Yan - Last Filed: 04/02/18 22:30> CCU Objective - Vital Signs / Intake & Output Vital Signs (Last 4 hours): Vital Signs Pulse Resp Pulse Ox 04/02/18 18:50 93 H 17 98 01/14/19 18:40 90 15 98 04/02/18 18:30 87 18 98 Intake and Output (Last 8hrs): Intake & Output 04/02/18 04/02/18 04/02/18 06:59 14:59 22:59 Intake Total 700 1500 375 Output Total 325 1450 505 Balance 375 50 -130 Weight 195 lb 12.328 oz Intake: IV 800 Intake, IV Amount 700 700 375 Left Antecubital 0 0 Right AC Y connection 100 Right Antecubital 600 700 375 Oral 0 0 Output: Drainage 25 Left Medial Parietal 25 Urine 325 1450 480 Urethral (Murphy) 600 480 Urine, Voided 325 450 Emesis 0 0 Other: # Voids Urine, Voided 1 # Bowel Movements 0 0 - Medications Active Medications: Active Medications Generic Name Dose Route Start Last Admin Trade Name Freq PRN Reason Stop Dose Admin Acetaminophen 650 mg 04/02/18 20:14 04/02/18 20:43 Tylenol 325mg Tab PO 650 mg Q6 PRN Administration Pain, Mild (1-3) Levetiracetam 250 mg/ Sodium 102.5 mls @ 420 mls/hr 04/01/18 11:00 04/02/18 11:25 Chloride IVPB 420 mls/hr Q12H [facility]ALE Administration Dextrose/Sodium Chloride 1,000 mls @ 75 mls/hr 04/01/18 23:30 04/02/18 12:50 Dextrose 5%/0.9% Ns 1000 Ml IV Not Given .[id number] WALE Ketorolac Tromethamine 15 mg 04/02/18 22:26 Toradol IVP 04/02/18 22:27 STAT STA Pantoprazole Sodium 40 mg 04/02/18 10:00 04/02/18 12:36 Protonix Inj IVP 40 mg DAILY WALE Administration - Patient Studies Lab Studies: Microbiology Studies 04/01/18 21:51 MRSA Culture (Admit) - Final Nose MRSA NOT DETECTED Lab Studies 04/02/18 04/02/18 04/02/18 Range/Units 18:30 12:15 06:13 WBC (4.8-10.8) K/uL RBC (4.40-5.90) Mil/uL Hgb (12.0-18.0) g/dL Hct (35.0-51.0) % MCV (80.0-94.0) fL MCH (27.0-31.0) pg MCHC (33.0-37.0) g/dL RDW (11.5-14.5) % Plt Count (130-400) K/uL MPV (7.2-11.7) fL Neut % (Auto) (50.0-75.0) % Lymph % (Auto) (20.0-40.0) % Sanders % (Auto) (0.0-10.0) % Eos % (Auto) (0.0-4.0) % Baso % (Auto) (0.0-2.0) % Neut # (Auto) (1.8-7.0) K/uL Lymph # (Auto) (1.0-4.3) K/uL Sanders # (Auto) (0.0-0.8) K/uL Eos # (Auto) (0.0-0.7) K/uL Baso # (Auto) (0.0-0.2) K/uL PT 11.5 (9.7-12.2) SECONDS INR 1.1 APTT 31 (21-34) SECONDS Sodium (132-148) mmol/L Potassium (3.6-5.2) mmol/L Chloride (98-107) mmol/L Carbon Dioxide (22-30) mmol/L Anion Gap (10-20) BUN (9-20) mg/dL Creatinine (0.8-1.5) mg/dL Est GFR ( Amer) Est GFR (Non-Af Amer) POC Glucose (mg/dL) 128 H 174 H (65-110) mg/dL Random Glucose (75-110) mg/dL Calcium (8.6-10.4) mg/dl Phosphorus (2.5-4.5) mg/dL Magnesium (1.6-2.3) mg/dL Total Bilirubin (0.2-1.3) mg/dL AST (17-59) U/L ALT (21-72) U/L Alkaline Phosphatase (38-126) U/L Total Protein (6.3-8.3) g/dL Albumin (3.5-5.0) g/dL Globulin (2.2-3.9) gm/dL Albumin/Globulin Ratio (1.0-2.1) 04/02/18 04/02/18 04/02/18 Range/Units 06:13 06:13 05:02 WBC 11.4 H (4.8-10.8) K/uL RBC 5.04 (4.40-5.90) Mil/uL Hgb 11.2 L (12.0-18.0) g/dL Hct 35.5 (35.0-51.0) % MCV 70.5 L (80.0-94.0) fL MCH 22.2 L (27.0-31.0) pg MCHC 31.5 L (33.0-37.0) g/dL RDW 14.9 H (11.5-14.5) % Plt Count 252 (130-400) K/uL MPV 8.1 (7.2-11.7) fL Neut % (Auto) 39.4 L (50.0-75.0) % Lymph % (Auto) 53.1 H (20.0-40.0) % Sanders % (Auto) 4.5 (0.0-10.0) % Eos % (Auto) 2.4 (0.0-4.0) % Baso % (Auto) 0.6 (0.0-2.0) % Neut # (Auto) 4.5 (1.8-7.0) K/uL Lymph # (Auto) 6.1 H (1.0-4.3) K/uL Sanders # (Auto) 0.5 (0.0-0.8) K/uL Eos # (Auto) 0.3 (0.0-0.7) K/uL Baso # (Auto) 0.1 (0.0-0.2) K/uL PT (9.7-12.2) SECONDS INR APTT (21-34) SECONDS Sodium 139 (132-148) mmol/L Potassium 4.5 (3.6-5.2) mmol/L Chloride 106 (98-107) mmol/L Carbon Dioxide 25 (22-30) mmol/L Anion Gap 12 (10-20) BUN 16 (9-20) mg/dL Creatinine 1.0 (0.8-1.5) mg/dL Est GFR ( Amer) > 60 Est GFR (Non-Af Amer) > 60 POC Glucose (mg/dL) 119 H (65-110) mg/dL Random Glucose 106 (75-110) mg/dL Calcium 8.5 L (8.6-10.4) mg/dl Phosphorus 3.5 (2.5-4.5) mg/dL Magnesium 1.9 (1.6-2.3) mg/dL Total Bilirubin 1.0 (0.2-1.3) mg/dL AST 45 (17-59) U/L ALT 75 H (21-72) U/L Alkaline Phosphatase 69 (38-126) U/L Total Protein 7.0 (6.3-8.3) g/dL Albumin 4.4 (3.5-5.0) g/dL Globulin 2.6 (2.2-3.9) gm/dL Albumin/Globulin Ratio 1.7 (1.0-2.1) 04/01/18 Range/Units 23:05 WBC (4.8-10.8) K/uL RBC (4.40-5.90) Mil/uL Hgb (12.0-18.0) g/dL Hct (35.0-51.0) % MCV (80.0-94.0) fL MCH (27.0-31.0) pg MCHC (33.0-37.0) g/dL RDW (11.5-14.5) % Plt Count (130-400) K/uL MPV (7.2-11.7) fL Neut % (Auto) (50.0-75.0) % Lymph % (Auto) (20.0-40.0) % Sanders % (Auto) (0.0-10.0) % Eos % (Auto) (0.0-4.0) % Baso % (Auto) (0.0-2.0) % Neut # (Auto) (1.8-7.0) K/uL Lymph # (Auto) (1.0-4.3) K/uL Sanders # (Auto) (0.0-0.8) K/uL Eos # (Auto) (0.0-0.7) K/uL Baso # (Auto) (0.0-0.2) K/uL PT (9.7-12.2) SECONDS INR APTT (21-34) SECONDS Sodium (132-148) mmol/L Potassium (3.6-5.2) mmol/L Chloride (98-107) mmol/L Carbon Dioxide (22-30) mmol/L Anion Gap (10-20) BUN (9-20) mg/dL Creatinine (0.8-1.5) mg/dL Est GFR ( Amer) Est GFR (Non-Af Amer) POC Glucose (mg/dL) 72 (65-110) mg/dL Random Glucose (75-110) mg/dL Calcium (8.6-10.4) mg/dl Phosphorus (2.5-4.5) mg/dL Magnesium (1.6-2.3) mg/dL Total Bilirubin (0.2-1.3) mg/dL AST (17-59) U/L ALT (21-72) U/L Alkaline Phosphatase (38-126) U/L Total Protein (6.3-8.3) g/dL Albumin (3.5-5.0) g/dL Globulin (2.2-3.9) gm/dL Albumin/Globulin Ratio (1.0-2.1) Laboratory Results - last 24 hr 04/01/18 04/02/18 04/02/18 23:05 05:02 06:13 WBC 11.4 H RBC 5.04 Hgb 11.2 L Hct 35.5 MCV 70.5 L MCH 22.2 L MCHC 31.5 L RDW 14.9 H Plt Count 252 MPV 8.1 Neut % (Auto) 39.4 L Lymph % (Auto) 53.1 H Sanders % (Auto) 4.5 Eos % (Auto) 2.4 Baso % (Auto) 0.6 Neut # (Auto) 4.5 Lymph # (Auto) 6.1 H Sanders # (Auto) 0.5 Eos # (Auto) 0.3 Baso # (Auto) 0.1 PT INR APTT Sodium Potassium Chloride Carbon Dioxide Anion Gap BUN Creatinine Est GFR ( Amer) Est GFR (Non-Af Amer) POC Glucose (mg/dL) 72 119 H Random Glucose Calcium Phosphorus Magnesium Total Bilirubin AST ALT Alkaline Phosphatase Total Protein Albumin Globulin Albumin/Globulin Ratio 04/02/18 04/02/18 04/02/18 06:13 06:13 12:15 WBC RBC Hgb Hct MCV MCH MCHC RDW Plt Count MPV Neut % (Auto) Lymph % (Auto) Sanders % (Auto) Eos % (Auto) Baso % (Auto) Neut # (Auto) Lymph # (Auto) Sanders # (Auto) Eos # (Auto) Baso # (Auto) PT 11.5 INR 1.1 APTT 31 Sodium 139 Potassium 4.5 Chloride 106 Carbon Dioxide 25 Anion Gap 12 BUN 16 Creatinine 1.0 Est GFR ( Amer) > 60 Est GFR (Non-Af Amer) > 60 POC Glucose (mg/dL) 174 H Random Glucose 106 Calcium 8.5 L Phosphorus 3.5 Magnesium 1.9 Total Bilirubin 1.0 AST 45 ALT 75 H Alkaline Phosphatase 69 Total Protein 7.0 Albumin 4.4 Globulin 2.6 Albumin/Globulin Ratio 1.7 04/02/18 18:30 WBC RBC Hgb Hct MCV MCH MCHC RDW Plt Count MPV Neut % (Auto) Lymph % (Auto) Sanders % (Auto) Eos % (Auto) Baso % (Auto) Neut # (Auto) Lymph # (Auto) Sanders # (Auto) Eos # (Auto) Baso # (Auto) PT INR APTT Sodium Potassium Chloride Carbon Dioxide Anion Gap BUN Creatinine Est GFR ( Amer) Est GFR (Non-Af Amer) POC Glucose (mg/dL) 128 H Random Glucose Calcium Phosphorus Magnesium Total Bilirubin AST ALT Alkaline Phosphatase Total Protein Albumin Globulin Albumin/Globulin Ratio Critical Care Progress Note - Nutrition Nutrition: Nutrition Category Date Time Status Heart Healthy Diet [DIET] Diets 04/02/18 Dinner Active Attending/Attestation - Attestation I have personally seen and examined this patient.: Yes I have fully participated in the care of the patient.: Yes I have reviewed all pertinent clinical information: Yes Notes (Text): 04/02/18 22:30 I examined the patient with the residents in the rounds. I agree with the current plan and treatment. Status post a craniotomy for subdural hemorrhage, clinically stable.
--- NOTE | 2018-04-02 22:35 | CP.PCM.PN ---
Subjective - Subjective Subjective: dictated Objective - Vital Signs/Intake and Output Vital Signs (last 24 hours): Temp Pulse Resp BP Pulse Ox 98.4 F 93 H 17 102/51 L 98 04/02/18 15:00 04/02/18 18:50 04/02/18 18:50 04/02/18 18:24 04/02/18 18:50 Intake and Output: 04/02/18 04/03/18 18:59 06:59 Intake Total 1800 75 Output Total 1630 325 Balance 170 -250 - Medications Medications: Current Medications Acetaminophen (Tylenol 325mg Tab) 650 mg PO Q6 PRN PRN Reason: Pain, Mild (1-3) Last Admin: 04/02/18 20:43 Dose: 650 mg Levetiracetam 250 mg/ Sodium (Chloride) 102.5 mls @ 420 mls/hr IVPB Q12H [facility] Last Admin: 04/02/18 11:25 Dose: 420 mls/hr Dextrose/Sodium Chloride (Dextrose 5%/0.9% Ns 1000 Ml) 1,000 mls @ 75 mls/hr IV .[id number] [facility] Last Admin: 04/02/18 12:50 Dose: Not Given Pantoprazole Sodium (Protonix Inj) 40 mg IVP DAILY [facility] Last Admin: 04/02/18 12:36 Dose: 40 mg - Labs Labs: 04/02/18 06:13 04/02/18 06:13 PT 11.5 SECONDS (9.7-12.2) 04/02/18 06:13 INR 1.1 04/02/18 06:13 APTT 31 SECONDS (21-34) 04/02/18 06:13
--- NOTE | 2018-04-03 03:55 | PN ---
DATE: 04/02/2018 SUBJECTIVE: The patient is postop. He underwent craniotomy. He is stable. He is awake, alert, extubated. No distress. No residual neurological deficits. PHYSICAL EXAMINATION: VITAL SIGNS: Blood pressure 102/51, pulse 91, respiratory rate 15, temperature 98. LUNGS: Clear. CARDIOVASCULAR SYSTEM: S1, S2, regular. ABDOMEN: Soft. ASSESSMENT: Subdural hematoma, status post evacuation craniotomy. PLAN: Continue postop care. Monitor the patient. Rogelio Carroll MD
[2018-04-03] MEDS: Dextrose 5%/0.9% NS 1,000 ML IV SCH ×3 (06:11→20:00)
[2018-04-03 06:37] LABS: BASO # 0.1 K/uL (0.0-0.2); BASO % 0.5 % (0.0-2.0); EOS # 0.2 K/uL (0.0-0.7); EOS % 1.8 % (0.0-4.0); HEMOGLOBIN 9.7 g/dL (12.0-18.0); LYMPH # 4.3 K/uL (1.0-4.3); LYMPH % 34.6 % (20.0-40.0); MEAN CELL VOLUME 70.1 fL (80.0-94.0); MEAN CORPUSCULAR HEMOGLOBIN 22.6 pg (27.0-31.0); MEAN CORPUSCULAR HGB CONC 32.3 g/dL (33.0-37.0); MEAN PLATELET VOLUME 7.5 fL (7.2-11.7); MONO # 0.9 K/uL (0.0-0.8); MONO % 7.3 % (0.0-10.0); NEUT % 55.8 % (50.0-75.0); RBC 4.28 Mil/uL (4.40-5.90); RED CELL DISTRIBUTION WIDTH 14.8 % (11.5-14.5); WHITE BLOOD COUNT 12.5 K/uL (4.8-10.8)
--- NOTE | 2018-04-03 06:38 | OP ---
PROCEDURE DATE: 04/02/2018 PREOPERATIVE DIAGNOSIS: Left chronic subdural hematoma. POSTOPERATIVE DIAGNOSIS: Left chronic subdural hematoma. PROCEDURE: Left craniotomy, evacuation of subdural hematoma. SURGEON: Bhanu Srivastava MD. DESCRIPTION OF PROCEDURE: The patient was brought to the operating room, intubated appropriately, head turned to the right. The frontotemporoparietal area was prepped and draped in the usual manner. A lazy S incision was marked out in the frontal region above the superior temporal line, instilled with lidocaine with epinephrine, then incised sharply after draping. The scalp was reflected back using Gelpi retractors and two cayden holes were placed in the cephalad part of the wound. A [place] elevator was used to separate the dura from the skull and the craniotome was then passed around for removing a bone flap. The underlying dura was full. The dura was then incised with a 15 blade and dark bloody motor oil colored fluid was drained. A specimen was sent. The dura was reflected back using 4-0 Nurolon stay stitches and the subdural space was thoroughly irrigated. There was a small, very flimsy membrane, which was divided with the bipolar cautery and taken back to the extent of the craniotomy site. The subdural space was irrigated multiple times with antibiotic irrigation until all returns were clear. A 10-Turkmen red rubber catheter with extra side holes were passed through a separate stab wound into the subdural space. We irrigated the wound there. We then proceeded to reapproximate the dura with 4-0 Nurolon. Then we placed Gelfoam over the exposed dura and then re-approximated the scalp with 2-0 Vicryl skin marisol. The drain was tapped in the usual manner, hooked up to a sterile collection bag and sterile dressing was applied. Approximate blood loss was 300 mL. All counts were correct. Specimen was subdural fluid. The patient was taken directly back to the intensive care unit in stable hemodynamic condition, awake, following commands and moving all extremities, moving pupils. Bhanu Srivastava MD
[2018-04-03 06:52] LABS: INR 1.1; PROTHROMBIN TIME 12.1 SECONDS (9.7-12.2)
[2018-04-03 06:58] LABS: ALB/GLOB RATIO 1.5 (1.0-2.1); ALBUMIN 3.9 g/dL (3.5-5.0); ALT/SGPT 63 U/L (21-72); AST/SGOT 34 U/L (17-59); BLOOD UREA NITROGEN 15 mg/dL (9-20); GFR NON-AFRICAN AMERICAN > 60
--- NOTE | 2018-04-03 12:43 | CT ---
Date of service: 04/03/2018 PROCEDURE: CT HEAD WITHOUT CONTRAST. HISTORY: S/P Craniotomy COMPARISON: Unenhanced head CT 04/01/2018. TECHNIQUE: Axial computed tomography images were obtained through the head/brain without intravenous contrast. Radiation dose: Total exam DLP = 1311.52 mGy-cm. This CT exam was performed using one or more of the following dose reduction techniques: Automated exposure control, adjustment of the mA and/or kV according to patient size, and/or use of iterative reconstruction technique. FINDINGS: HEMORRHAGE: Patient status post left total parietal craniotomy in the interval evacuating the majority of dense left subdural hematoma with residual fluid and pneumocephaly remaining at the left frontotemporal distribution. Increased midline shift is noted toward the right up to 1.3 cm compared to 0.4 cm previously. A surgical drain is noted in situ at the left frontal extra-axial space with subdural fluid comprised a predominantly low-density fluid measuring up to 1.4 cm approaching the vertex as well as more inferiorly at the mid left frontal lobe level. Suprasellar cistern is diminished in volume although the perimesencephalic cisterns do not appear significantly changed surrounding the alisa. More inferiorly in the posterior fossa, extra-axial spaces are unchanged in overall volume. BRAIN: As previously shown, corticomedullary differentiation is preserved with no definite parenchymal edema appreciated at this time. VENTRICLES: Left lateral ventricle is nearly completely effaced with right lateral ventricle, 3rd and 4th ventricles normal and stable in volume overall. CALVARIUM: See hemorrhage section above. PARANASAL SINUSES: Unremarkable as visualized. No significant inflammatory changes. MASTOID AIR CELLS: Unremarkable as visualized. No inflammatory changes. OTHER FINDINGS: None. IMPRESSION: 1. Level left fronto parietal craniotomy with subdural drainage catheter in situ. 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 Clinical correlation and follow-up CT are advised. 2. Loss of volume of the suprasellar cistern is identified with the basilar cisterns otherwise unremarkable. Discussed with ICU Nurse Lucia with written down and read back verification 04/03/2018 12:30 p.m..
--- NOTE | 2018-04-03 17:38 | CP.CCUPN ---
<Liam Garcia - Last Filed: 04/03/18 18:01> CCU Subjective - Physician Review Subjective (Free Text): PGY-[address] Surya collins Patient is seen and examined at bedside. Patient in no acute distress, sitting in bed. No acute events overnight. Patient continue to have headaches last night. Left ventriculostomy drain in place, draining serous fluid. no neuro deficits. family at bedside (), patient reports good appetite. no further complaints. 04/03/18 18:01 Critical Care Time Spent (in minutes): 35 CCU Objective - Vital Signs / Intake & Output Vital Signs (Last 4 hours): Vital Signs Temp Pulse Resp BP Pulse Ox 04/03/18 17:00 90 14 98 04/03/18 16:50 89 13 97 04/03/18 16:40 88 15 98 04/03/18 16:31 90 16 124/68 97 04/03/18 16:30 91 H 15 97 04/03/18 16:20 91 H 22 98 04/03/18 16:10 96 H 21 99 04/03/18 16:00 98.6 F 90 21 112/72 99 04/03/18 15:50 92 H 19 97 04/03/18 15:40 91 H 16 98 04/03/18 15:31 90 14 128/67 97 04/03/18 15:30 96 H 17 97 04/03/18 15:20 89 15 96 04/03/18 15:10 91 H 15 97 04/03/18 15:00 89 23 100 04/03/18 14:50 83 16 95 04/03/18 14:40 92 H 15 98 04/03/18 14:31 85 16 130/65 97 04/03/18 14:30 84 15 96 04/03/18 14:20 89 19 98 04/03/18 14:10 95 H 17 97 04/03/18 14:00 81 20 99 04/03/18 13:50 82 18 97 04/03/18 13:40 87 19 Intake and Output (Last 8hrs): Intake & Output 04/03/18 04/03/18 04/03/18 06:59 14:59 22:59 Intake Total 760 1555 1065 Output Total 325 720 650 Balance 435 835 415 Weight 201 lb 8.04 oz Intake: Intake, IV Amount 700 675 225 Left Antecubital 0 0 Right AC Y connection 100 Right Antecubital 600 675 225 Oral 60 880 840 Output: Drainage 75 Left Medial Parietal 75 Urine 250 720 650 Urethral ([place]hen[place]) 250 720 650 Emesis 0 0 Other: # Bowel Movements 0 0 - Physical Exam Head: Positive for: Other (dressing left parietal area of head, c/d/i ) Pupils: Positive for: PERRL Extroacular Muscles: Positive for: EOMI Conjunctiva: Positive for: Normal Mouth: Positive for: Moist Mucous Membranes Nose (Internal): Positive for: Normal Inspection Neck: Positive for: Normal Range of Motion Respiratory/Chest: Positive for: Clear to Auscultation. Negative for: Wheezes, Decreased Breath Sounds, Rales, Rhonchi Cardiovascular: Positive for: Regular Rate and Rhythm, Normal S1, S2 Abdomen: Positive for: Normal Bowel Sounds. Negative for: Tenderness, Distention Upper Extremity: Positive for: Normal Inspection Lower Extremity: Positive for: Normal Inspection Neurological: Positive for: GCS=15, CN II-XII Intact, Speech Normal Skin: Positive for: Warm, Dry, Normal Color Psychiatric: Positive for: Alert, Oriented x 3, Normal Insight, Normal Concentration, Normal Affect, Normal Mood - Medications Active Medications: Active Medications Generic Name Dose Route Start Last Admin Trade Name [id number] PRN Reason Stop Dose Admin Acetaminophen 650 mg 04/02/18 20:14 04/02/18 20:43 Tylenol 325mg Tab PO 650 mg Q6 PRN Administration Pain, Mild (1-3) Levetiracetam 250 mg/ Sodium 102.5 mls @ 420 mls/hr 04/01/18 11:00 04/03/18 11:40 Chloride IVPB 420 mls/hr Q12H WALE Administration Dextrose/Sodium Chloride 1,000 mls @ 75 mls/hr 04/01/18 23:30 04/03/18 06:11 Dextrose 5%/0.9% Ns 1000 Ml IV 75 mls/hr .[id number] WALE Administration Pantoprazole Sodium 40 mg 04/02/18 10:00 04/03/18 11:45 Protonix Inj IVP 40 mg DAILY WALE Administration - Patient Studies Lab Studies: Microbiology Studies 04/01/18 21:51 MRSA Culture (Admit) - Final Nose MRSA NOT DETECTED Lab Studies 04/03/18 04/03/18 04/03/18 Range/Units 11:51 06:32 06:32 WBC 12.5 H (4.8-10.8) K/uL RBC 4.28 L (4.40-5.90) Mil/uL Hgb 9.7 L (12.0-18.0) g/dL Hct 30.0 L (35.0-51.0) % MCV 70.1 L (80.0-94.0) fL MCH 22.6 L (27.0-31.0) pg MCHC 32.3 L (33.0-37.0) g/dL RDW 14.8 H (11.5-14.5) % Plt Count 219 (130-400) K/uL MPV 7.5 (7.2-11.7) fL Neut % (Auto) 55.8 (50.0-75.0) % Lymph % (Auto) 34.6 (20.0-40.0) % Phillips % (Auto) 7.3 (0.0-10.0) % Eos % (Auto) 1.8 (0.0-4.0) % Baso % (Auto) 0.5 (0.0-2.0) % Neut # (Auto) 7.0 (1.8-7.0) K/uL Lymph # (Auto) 4.3 (1.0-4.3) K/uL Phillips # (Auto) 0.9 H (0.0-0.8) K/uL Eos # (Auto) 0.2 (0.0-0.7) K/uL Baso # (Auto) 0.1 (0.0-0.2) K/uL PT (9.7-12.2) SECONDS INR APTT (21-34) SECONDS Sodium 137 (132-148) mmol/L Potassium 3.8 (3.6-5.2) mmol/L Chloride 106 (98-107) mmol/L Carbon Dioxide 23 (22-30) mmol/L Anion Gap 13 (10-20) BUN 15 (9-20) mg/dL Creatinine 0.9 (0.8-1.5) mg/dL Est GFR ( Amer) > 60 Est GFR (Non-Af Amer) > 60 POC Glucose (mg/dL) 176 H (65-110) mg/dL Random Glucose 149 H D (75-110) mg/dL Calcium 8.0 L (8.6-10.4) mg/dl Phosphorus 2.7 (2.5-4.5) mg/dL Magnesium 1.9 (1.6-2.3) mg/dL Total Bilirubin 1.1 (0.2-1.3) mg/dL AST 34 (17-59) U/L ALT 63 (21-72) U/L Alkaline Phosphatase 69 (38-126) U/L Total Protein 6.4 (6.3-8.3) g/dL Albumin 3.9 (3.5-5.0) g/dL Globulin 2.5 (2.2-3.9) gm/dL Albumin/Globulin Ratio 1.5 (1.0-2.1) 04/03/18 04/03/18 04/02/18 Range/Units 06:32 06:24 23:51 WBC (4.8-10.8) K/uL RBC (4.40-5.90) Mil/uL Hgb (12.0-18.0) g/dL Hct (35.0-51.0) % MCV (80.0-94.0) fL MCH (27.0-31.0) pg MCHC (33.0-37.0) g/dL RDW (11.5-14.5) % Plt Count (130-400) K/uL MPV (7.2-11.7) fL Neut % (Auto) (50.0-75.0) % Lymph % (Auto) (20.0-40.0) % Phillips % (Auto) (0.0-10.0) % Eos % (Auto) (0.0-4.0) % Baso % (Auto) (0.0-2.0) % Neut # (Auto) (1.8-7.0) K/uL Lymph # (Auto) (1.0-4.3) K/uL Phillips # (Auto) (0.0-0.8) K/uL Eos # (Auto) (0.0-0.7) K/uL Baso # (Auto) (0.0-0.2) K/uL PT 12.1 (9.7-12.2) SECONDS INR 1.1 APTT 29 (21-34) SECONDS Sodium (132-148) mmol/L Potassium (3.6-5.2) mmol/L Chloride (98-107) mmol/L Carbon Dioxide (22-30) mmol/L Anion Gap (10-20) BUN (9-20) mg/dL Creatinine (0.8-1.5) mg/dL Est GFR ( Amer) Est GFR (Non-Af Amer) POC Glucose (mg/dL) 156 H 134 H (65-110) mg/dL Random Glucose (75-110) mg/dL Calcium (8.6-10.4) mg/dl Phosphorus (2.5-4.5) mg/dL Magnesium (1.6-2.3) mg/dL Total Bilirubin (0.2-1.3) mg/dL AST (17-59) U/L ALT (21-72) U/L Alkaline Phosphatase (38-126) U/L Total Protein (6.3-8.3) g/dL Albumin (3.5-5.0) g/dL Globulin (2.2-3.9) gm/dL Albumin/Globulin Ratio (1.0-2.1) 04/02/18 Range/Units 18:30 WBC (4.8-10.8) K/uL RBC (4.40-5.90) Mil/uL Hgb (12.0-18.0) g/dL Hct (35.0-51.0) % MCV (80.0-94.0) fL MCH (27.0-31.0) pg MCHC (33.0-37.0) g/dL RDW (11.5-14.5) % Plt Count (130-400) K/uL MPV (7.2-11.7) fL Neut % (Auto) (50.0-75.0) % Lymph % (Auto) (20.0-40.0) % Phillips % (Auto) (0.0-10.0) % Eos % (Auto) (0.0-4.0) % Baso % (Auto) (0.0-2.0) % Neut # (Auto) (1.8-7.0) K/uL Lymph # (Auto) (1.0-4.3) K/uL Phillips # (Auto) (0.0-0.8) K/uL Eos # (Auto) (0.0-0.7) K/uL Baso # (Auto) (0.0-0.2) K/uL PT (9.7-12.2) SECONDS INR APTT (21-34) SECONDS Sodium (132-148) mmol/L Potassium (3.6-5.2) mmol/L Chloride (98-107) mmol/L Carbon Dioxide (22-30) mmol/L Anion Gap (10-20) BUN (9-20) mg/dL Creatinine (0.8-1.5) mg/dL Est GFR ( Amer) Est GFR (Non-Af Amer) POC Glucose (mg/dL) 128 H (65-110) mg/dL Random Glucose (75-110) mg/dL Calcium (8.6-10.4) mg/dl Phosphorus (2.5-4.5) mg/dL Magnesium (1.6-2.3) mg/dL Total Bilirubin (0.2-1.3) mg/dL AST (17-59) U/L ALT (21-72) U/L Alkaline Phosphatase (38-126) U/L Total Protein (6.3-8.3) g/dL Albumin (3.5-5.0) g/dL Globulin (2.2-3.9) gm/dL Albumin/Globulin Ratio (1.0-2.1) Laboratory Results - last 24 hr 04/02/18 04/02/18 04/03/18 18:30 23:51 06:24 WBC RBC Hgb Hct MCV MCH MCHC RDW Plt Count MPV Neut % (Auto) Lymph % (Auto) Phillips % (Auto) Eos % (Auto) Baso % (Auto) Neut # (Auto) Lymph # (Auto) Phillips # (Auto) Eos # (Auto) Baso # (Auto) PT INR APTT Sodium Potassium Chloride Carbon Dioxide Anion Gap BUN Creatinine Est GFR ( Amer) Est GFR (Non-Af Amer) POC Glucose (mg/dL) 128 H 134 H 156 H Random Glucose Calcium Phosphorus Magnesium Total Bilirubin AST ALT Alkaline Phosphatase Total Protein Albumin Globulin Albumin/Globulin Ratio 04/03/18 04/03/1804/03/19 06:32 06:32 06:32 WBC 12.5 H RBC 4.28 L Hgb 9.7 L Hct 30.0 L MCV 70.1 L MCH 22.6 L MCHC 32.3 L RDW 14.8 H Plt Count 219 MPV 7.5 Neut % (Auto) 55.8 Lymph % (Auto) 34.6 Phillips % (Auto) 7.3 Eos % (Auto) 1.8 Baso % (Auto) 0.5 Neut # (Auto) 7.0 Lymph # (Auto) 4.3 Phillips # (Auto) 0.9 H Eos # (Auto) 0.2 Baso # (Auto) 0.1 PT 12.1 INR 1.1 APTT 29 Sodium 137 Potassium 3.8 Chloride 106 Carbon Dioxide 23 Anion Gap 13 BUN 15 Creatinine 0.9 Est GFR ( Amer) > 60 Est GFR (Non-Af Amer) > 60 POC Glucose (mg/dL) Random Glucose 149 H D Calcium 8.0 L Phosphorus 2.7 Magnesium 1.9 Total Bilirubin 1.1 AST 34 ALT 63 Alkaline Phosphatase 69 Total Protein 6.4 Albumin 3.9 Globulin 2.5 Albumin/Globulin Ratio 1.5 04/03/18 11:51 WBC RBC Hgb Hct MCV MCH MCHC RDW Plt Count MPV Neut % (Auto) Lymph % (Auto) Phillips % (Auto) Eos % (Auto) Baso % (Auto) Neut # (Auto) Lymph # (Auto) Phillips # (Auto) Eos # (Auto) Baso # (Auto) PT INR APTT Sodium Potassium Chloride Carbon Dioxide Anion Gap BUN Creatinine Est GFR ( Amer) Est GFR (Non-Af Amer) POC Glucose (mg/dL) 176 H Random Glucose Calcium Phosphorus Magnesium Total Bilirubin AST ALT Alkaline Phosphatase Total Protein Albumin Globulin Albumin/Globulin Ratio Radiology Impressions: Radiology Impressions Head CT 04/03/18 08:00 IMPRESSION: 1. Level left fronto parietal craniotomy with subdural drainage catheter in situ. 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 Clinical correlation and follow-up CT are advised. 2. Loss of volume of the suprasellar cistern is identified with the basilar cisterns otherwise unremarkable. Discussed with ICU Nurse Lucia with written down and read back verification 04/03/2018 12:30 p.m.. Fingerstick Blood Sugar Results: 156 Critical Care Progress Note - Nutrition Nutrition: Nutrition Category Date Time Status Heart Healthy Diet [DIET] Diets 04/02/18 Dinner Active Assessment/Plan - Assessment and Plan (Free Text) Plan: Patient is a 72 year old male with pmhx of HTN, DM and hyperurecemia admitted for worsening headaches for 2 weeks, CT shows 1.8 acute on chronic subdural hematoma, Left craniotomy for evacuation of hematoma pod #1 Neuro - AAOx3 - Q1h neuro exams - Neurosx consult - continue to follow recs - Dr Srivastava - repeat CT head - will follow up results - no platelets, no anticoagulation - f/u am labs - tylenol PRN for pain - Keppra Pulm - O2 via NC PRN Cardio - monitor BP, keep SBP less than 120 - continues to be Hemodynamically stable GI - HHD, supplement diet Renal - D5 NS at 75 mls ppx - protonix - SCDS Plan discussed with Dr Surya Garcia, PGY-1 - Date & Time Date: 04/03/18 Time: 12:00 <Cuco [place] S - Last Filed: 04/03/18 18:49> CCU Objective - Vital Signs / Intake & Output Vital Signs (Last 4 hours): Vital Signs Temp Pulse Resp BP Pulse Ox 04/03/18 17:00 90 14 98 04/03/18 16:50 89 13 97 04/03/18 16:40 88 15 98 04/03/18 16:31 90 16 124/68 97 04/03/18 16:30 91 H 15 97 04/03/18 16:20 91 H 22 98 04/03/18 16:10 96 H 21 99 04/03/18 16:00 98.6 F 90 21 112/72 99 04/03/18 15:50 92 H 19 97 04/03/18 15:40 91 H 16 98 04/03/18 15:31 90 14 128/67 97 04/03/18 15:30 96 H 17 97 04/03/18 15:20 89 15 96 04/03/18 15:10 91 H 15 97 04/03/18 15:00 89 23 100 04/03/18 14:50 83 16 95 04/03/18 14:40 92 H 15 98 Intake and Output (Last 8hrs): Intake & Output 04/03/18 04/03/18 04/03/18 06:59 14:59 22:59 Intake Total 760 1555 1065 Output Total 325 720 650 Balance 435 835 415 Weight 201 lb 8.04 oz Intake: Intake, IV Amount 700 675 225 Left Antecubital 0 0 Right AC Y connection 100 Right Antecubital 600 675 225 Oral 60 880 840 Output: Drainage 75 Left Medial Parietal 75 Urine 250 720 650 Urethral ([place]hen[place]) 250 720 650 Emesis 0 0 Other: # Bowel Movements 0 0 - Medications Active Medications: Active Medications Generic Name Dose Route Start Last Admin Trade Name Freq PRN Reason Stop Dose Admin Acetaminophen 650 mg 04/02/18 20:14 04/02/18 20:43 Tylenol 325mg Tab PO 650 mg Q6 PRN Administration Pain, Mild (1-3) Levetiracetam 250 mg/ Sodium 102.5 mls @ 420 mls/hr 04/01/18 11:00 04/03/18 11:40 Chloride IVPB 420 mls/hr Q12H WALE Administration Dextrose/Sodium Chloride 1,000 mls @ 75 mls/hr 04/01/18 23:30 04/03/18 06:11 Dextrose 5%/0.9% Ns 1000 Ml IV 75 mls/hr .[id number] WALE Administration Pantoprazole Sodium 40 mg 04/02/18 10:00 04/03/18 11:45 Protonix Inj IVP 40 mg DAILY WALE Administration - Patient Studies Lab Studies: Microbiology Studies 04/01/18 21:51 MRSA Culture (Admit) - Final Nose MRSA NOT DETECTED Lab Studies 04/03/18 04/03/18 04/03/18 Range/Units 17:43 11:51 06:32 WBC 12.5 H (4.8-10.8) K/uL RBC 4.28 L (4.40-5.90) Mil/uL Hgb 9.7 L (12.0-18.0) g/dL Hct 30.0 L (35.0-51.0) % MCV 70.1 L (80.0-94.0) fL MCH 22.6 L (27.0-31.0) pg MCHC 32.3 L (33.0-37.0) g/dL RDW 14.8 H (11.5-14.5) % Plt Count 219 (130-400) K/uL MPV 7.5 (7.2-11.7) fL Neut % (Auto) 55.8 (50.0-75.0) % Lymph % (Auto) 34.6 (20.0-40.0) % Phillips % (Auto) 7.3 (0.0-10.0) % Eos % (Auto) 1.8 (0.0-4.0) % Baso % (Auto) 0.5 (0.0-2.0) % Neut # (Auto) 7.0 (1.8-7.0) K/uL Lymph # (Auto) 4.3 (1.0-4.3) K/uL Phillips # (Auto) 0.9 H (0.0-0.8) K/uL Eos # (Auto) 0.2 (0.0-0.7) K/uL Baso # (Auto) 0.1 (0.0-0.2) K/uL PT (9.7-12.2) SECONDS INR APTT (21-34) SECONDS Sodium (132-148) mmol/L Potassium (3.6-5.2) mmol/L Chloride (98-107) mmol/L Carbon Dioxide (22-30) mmol/L Anion Gap (10-20) BUN (9-20) mg/dL Creatinine (0.8-1.5) mg/dL Est GFR ( Amer) Est GFR (Non-Af Amer) POC Glucose (mg/dL) 184 H 176 H (65-110) mg/dL Random Glucose (75-110) mg/dL Calcium (8.6-10.4) mg/dl Phosphorus (2.5-4.5) mg/dL Magnesium (1.6-2.3) mg/dL Total Bilirubin (0.2-1.3) mg/dL AST (17-59) U/L ALT (21-72) U/L Alkaline Phosphatase (38-126) U/L Total Protein (6.3-8.3) g/dL Albumin (3.5-5.0) g/dL Globulin (2.2-3.9) gm/dL Albumin/Globulin Ratio (1.0-2.1) 04/03/18 04/03/18 04/03/18 Range/Units 06:32 06:32 06:24 WBC (4.8-10.8) K/uL RBC (4.40-5.90) Mil/uL Hgb (12.0-18.0) g/dL Hct (35.0-51.0) % MCV (80.0-94.0) fL MCH (27.0-31.0) pg MCHC (33.0-37.0) g/dL RDW (11.5-14.5) % Plt Count (130-400) K/uL MPV (7.2-11.7) fL Neut % (Auto) (50.0-75.0) % Lymph % (Auto) (20.0-40.0) % Phillips % (Auto) (0.0-10.0) % Eos % (Auto) (0.0-4.0) % Baso % (Auto) (0.0-2.0) % Neut # (Auto) (1.8-7.0) K/uL Lymph # (Auto) (1.0-4.3) K/uL Phillips # (Auto) (0.0-0.8) K/uL Eos # (Auto) (0.0-0.7) K/uL Baso # (Auto) (0.0-0.2) K/uL PT 12.1 (9.7-12.2) SECONDS INR 1.1 APTT 29 (21-34) SECONDS Sodium 137 (132-148) mmol/L Potassium 3.8 (3.6-5.2) mmol/L Chloride 106 (98-107) mmol/L Carbon Dioxide 23 (22-30) mmol/L Anion Gap 13 (10-20) BUN 15 (9-20) mg/dL Creatinine 0.9 (0.8-1.5) mg/dL Est GFR ( Amer) > 60 Est GFR (Non-Af Amer) > 60 POC Glucose (mg/dL) 156 H (65-110) mg/dL Random Glucose 149 H D (75-110) mg/dL Calcium 8.0 L (8.6-10.4) mg/dl Phosphorus 2.7 (2.5-4.5) mg/dL Magnesium 1.9 (1.6-2.3) mg/dL Total Bilirubin 1.1 (0.2-1.3) mg/dL AST 34 (17-59) U/L ALT 63 (21-72) U/L Alkaline Phosphatase 69 (38-126) U/L Total Protein 6.4 (6.3-8.3) g/dL Albumin 3.9 (3.5-5.0) g/dL Globulin 2.5 (2.2-3.9) gm/dL Albumin/Globulin Ratio 1.5 (1.0-2.1) 04/02/18 04/02/18 Range/Units 23:51 18:30 WBC (4.8-10.8) K/uL RBC (4.40-5.90) Mil/uL Hgb (12.0-18.0) g/dL Hct (35.0-51.0) % MCV (80.0-94.0) fL MCH (27.0-31.0) pg MCHC (33.0-37.0) g/dL RDW (11.5-14.5) % Plt Count (130-400) K/uL MPV (7.2-11.7) fL Neut % (Auto) (50.0-75.0) % Lymph % (Auto) (20.0-40.0) % Phillips % (Auto) (0.0-10.0) % Eos % (Auto) (0.0-4.0) % Baso % (Auto) (0.0-2.0) % Neut # (Auto) (1.8-7.0) K/uL Lymph # (Auto) (1.0-4.3) K/uL Phillips # (Auto) (0.0-0.8) K/uL Eos # (Auto) (0.0-0.7) K/uL Baso # (Auto) (0.0-0.2) K/uL PT (9.7-12.2) SECONDS INR APTT (21-34) SECONDS Sodium (132-148) mmol/L Potassium (3.6-5.2) mmol/L Chloride (98-107) mmol/L Carbon Dioxide (22-30) mmol/L Anion Gap (10-20) BUN (9-20) mg/dL Creatinine (0.8-1.5) mg/dL Est GFR ( Amer) Est GFR (Non-Af Amer) POC Glucose (mg/dL) 134 H 128 H (65-110) mg/dL Random Glucose (75-110) mg/dL Calcium (8.6-10.4) mg/dl Phosphorus (2.5-4.5) mg/dL Magnesium (1.6-2.3) mg/dL Total Bilirubin (0.2-1.3) mg/dL AST (17-59) U/L ALT (21-72) U/L Alkaline Phosphatase (38-126) U/L Total Protein (6.3-8.3) g/dL Albumin (3.5-5.0) g/dL Globulin (2.2-3.9) gm/dL Albumin/Globulin Ratio (1.0-2.1) Laboratory Results - last 24 hr 04/02/18 04/02/18 04/03/18 18:30 23:51 06:24 WBC RBC Hgb Hct MCV MCH MCHC RDW Plt Count MPV Neut % (Auto) Lymph % (Auto) Phillips % (Auto) Eos % (Auto) Baso % (Auto) Neut # (Auto) Lymph # (Auto) Phillips # (Auto) Eos # (Auto) Baso # (Auto) PT INR APTT Sodium Potassium Chloride Carbon Dioxide Anion Gap BUN Creatinine Est GFR ( Amer) Est GFR (Non-Af Amer) POC Glucose (mg/dL) 128 H 134 H 156 H Random Glucose Calcium Phosphorus Magnesium Total Bilirubin AST ALT Alkaline Phosphatase Total Protein Albumin Globulin Albumin/Globulin Ratio 04/03/18 04/03/18 04/03/18 06:32 06:32 06:32 WBC 12.5 H RBC 4.28 L Hgb 9.7 L Hct 30.0 L MCV 70.1 L MCH 22.6 L MCHC 32.3 L RDW 14.8 H Plt Count 219 MPV 7.5 Neut % (Auto) 55.8 Lymph % (Auto) 34.6 Phillips % (Auto) 7.3 Eos % (Auto) 1.8 Baso % (Auto) 0.5 Neut # (Auto) 7.0 Lymph # (Auto) 4.3 Phillips # (Auto) 0.9 H Eos # (Auto) 0.2 Baso # (Auto) 0.1 PT 12.1 INR 1.1 APTT 29 Sodium 137 Potassium 3.8 Chloride 106 Carbon Dioxide 23 Anion Gap 13 BUN 15 Creatinine 0.9 Est GFR ( Amer) > 60 Est GFR (Non-Af Amer) > 60 POC Glucose (mg/dL) Random Glucose 149 H D Calcium 8.0 L Phosphorus 2.7 Magnesium 1.9 Total Bilirubin 1.1 AST 34 ALT 63 Alkaline Phosphatase 69 Total Protein 6.4 Albumin 3.9 Globulin 2.5 Albumin/Globulin Ratio 1.5 04/03/18 04/03/18 11:51 17:43 WBC RBC Hgb Hct MCV MCH MCHC RDW Plt Count MPV Neut % (Auto) Lymph % (Auto) Phillips % (Auto) Eos % (Auto) Baso % (Auto) Neut # (Auto) Lymph # (Auto) Phillips # (Auto) Eos # (Auto) Baso # (Auto) PT INR APTT Sodium Potassium Chloride Carbon Dioxide Anion Gap BUN Creatinine Est GFR ( Amer) Est GFR (Non-Af Amer) POC Glucose (mg/dL) 176 H 184 H Random Glucose Calcium Phosphorus Magnesium Total Bilirubin AST ALT Alkaline Phosphatase Total Protein Albumin Globulin Albumin/Globulin Ratio Radiology Impressions: Radiology Impressions Head CT 04/03/18 08:00 IMPRESSION: 1. Level left fronto parietal craniotomy with subdural drainage catheter in situ. 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 Clinical correlation and follow-up CT are advised. 2. Loss of volume of the suprasellar cistern is identified with the basilar cisterns otherwise unremarkable. Discussed with ICU Nurse Lucia with written down and read back verification 04/03/2018 12:30 p.m.. Critical Care Progress Note - Nutrition Nutrition: Nutrition Category Date Time Status Heart Healthy Diet [DIET] Diets 04/02/18 Dinner Active Attending/Attestation - Attestation I have personally seen and examined this patient.: Yes I have fully participated in the care of the patient.: Yes I have reviewed all pertinent clinical information: Yes Notes (Text): 04/03/18 18:36 Patient seen and examined in the intensive care unit. Case discussed with housestaff in the morning rounds. Continue present treatment for now Repeat CAT scan of the head noted and neurosurgery informed
--- NOTE | 2018-04-03 21:33 | CP.PCM.PN ---
Subjective - Date & Time of Evaluation Date of Evaluation: 04/03/18 Time of Evaluation: 21:33 - Subjective Subjective: dictated Objective - Vital Signs/Intake and Output Vital Signs (last 24 hours): Temp Pulse Resp BP Pulse Ox 98.6 F 87 20 140/66 97 04/03/18 16:00 04/03/18 19:10 04/03/18 19:10 04/03/18 18:31 04/03/18 19:10 Intake and Output: 04/03/18 04/04/18 18:59 06:59 Intake Total 2695 Output Total 1570 Balance 1125 - Medications Medications: Current Medications Acetaminophen (Tylenol 325mg Tab) 650 mg PO Q6 PRN PRN Reason: Pain, Mild (1-3) Last Admin: 04/02/18 20:43 Dose: 650 mg Levetiracetam 250 mg/ Sodium (Chloride) 102.5 mls @ 420 mls/hr IVPB Q12H [facility] Last Admin: 04/03/18 11:40 Dose: 420 mls/hr Dextrose/Sodium Chloride (Dextrose 5%/0.9% Ns 1000 Ml) 1,000 mls @ 75 mls/hr IV .[id number] [facility] Last Admin: 04/03/18 19:15 Dose: Not Given Pantoprazole Sodium (Protonix Inj) 40 mg IVP DAILY [facility] Last Admin: 04/03/18 11:45 Dose: 40 mg - Labs Labs: 04/03/18 06:32 04/03/18 06:32 PT 12.1 SECONDS (9.7-12.2) 04/03/18 06:32 INR 1.1 04/03/18 06:32 APTT 29 SECONDS (21-34) 04/03/18 06:32
--- NOTE | 2018-04-04 02:18 | PN ---
DATE: 04/03/2018 SUBJECTIVE: The patient is talking. He had no neuro deficit. His blood pressure is under control. He is afebrile. He has a drain in the scalp. PHYSICAL EXAMINATION: VITAL SIGNS: Blood pressure 140/66, pulse 85, respiratory rate 18, temperature 98. LUNGS: Clear. CARDIOVASCULAR SYSTEM: S1 and S2 regular. ABDOMEN: Soft, nontender. Bowel sounds are positive. ASSESSMENT: 1. Subdural hematoma, status post evacuation. 2. Anemia. 3. Hypertension. PLAN: Continue postop care. Monitor the patient. Rogelio Carroll MD
[2018-04-04] MEDS: Dextrose 5%/0.9% NS 1,000 ML IV SCH (04:50)
[2018-04-04 06:13] LABS: MEAN PLATELET VOLUME 8.4 fL (7.2-11.7)
[2018-04-04 06:25] LABS: ALB/GLOB RATIO 1.4 (1.0-2.1); ALBUMIN 3.8 g/dL (3.5-5.0); ALT/SGPT 64 U/L (21-72); AST/SGOT 36 U/L (17-59); BLOOD UREA NITROGEN 10 mg/dL (9-20); CALCIUM 7.8 mg/dl (8.6-10.4); GFR NON-AFRICAN AMERICAN > 60
[2018-04-04 06:29] LABS: BASO # 0.1 K/uL (0.0-0.2); BASO % 0.5 % (0.0-2.0); EOS % 0.1 % (0.0-4.0); LYMPH # 4.4 K/uL (1.0-4.3); LYMPH % 29.7 % (20.0-40.0); MEAN CELL VOLUME 70.7 fL (80.0-94.0); MEAN CORPUSCULAR HEMOGLOBIN 22.3 pg (27.0-31.0); MEAN CORPUSCULAR HGB CONC 31.5 g/dL (33.0-37.0); MONO # 0.8 K/uL (0.0-0.8); MONO % 5.4 % (0.0-10.0); NEUT # 9.5 K/uL (1.8-7.0); NEUT % 64.3 % (50.0-75.0); RBC 4.02 Mil/uL (4.40-5.90); RED CELL DISTRIBUTION WIDTH 14.9 % (11.5-14.5); WHITE BLOOD COUNT 14.8 K/uL (4.8-10.8)
--- NOTE | 2018-04-04 06:31 | PN ---
DATE: 04/03/2018 SUBJECTIVE: Postop day 1 from craniotomy evacuation of subdural. Mr. Maier was resting comfortably. He immediately opened his eyes and responded well simply to voice. He is oriented x3. He follows all commands briskly. He has 5/5 strength throughout. Dressing is dry. He has approximately 100 mL of subdural drainage. IMPRESSION AND PLAN: The plan will be to check a routine postoperative CT tomorrow morning postoperative day 2 and more than likely we will be able to remove the drain at that time, in the interim no change in his care. Gavino Hardin MD
[2018-04-04] MEDS ORDERED: Labetalol 300 MG in Dextrose 5% In Water 240 ML IV SCH (09:30)
--- NOTE | 2018-04-04 09:55 | CT ---
Date of service: 04/04/2018 PROCEDURE: CT HEAD WITHOUT CONTRAST. HISTORY: Change in mental status COMPARISON: Unenhanced head CT 04/03/2018. TECHNIQUE: Axial computed tomography images were obtained through the head/brain without intravenous contrast. Radiation dose: Total exam DLP = 1341.28 mGy-cm. This CT exam was performed using one or more of the following dose reduction techniques: Automated exposure control, adjustment of the mA and/or kV according to patient size, and/or use of iterative reconstruction technique. FINDINGS: BRAIN: Prior left frontal parietal craniotomy reiterated with subdural drainage catheter in situ at the left frontal dural space superiorly. Residual hyperdense hemorrhagic products are stable at the left frontal subdural space approaching the vertex as well as minimally abutting the superficial margins of the left frontal lobe superolaterally. A mild expansion of the dural fluid collection appears primarily due to CSF measuring 2.1 cm greatest dimension compared to 1.6 cm previously (on measuring the collection from CT 04/03/2018). There is minimal increase in rightward shift to 1.6 cm compared to 1.3 cm previously. Trace subdural hemorrhage remains at the anteromedial left parafalcine space. Suprasellar cistern remains limited in volume with the left lateral ventricle partially effaced once again. Third ventricle remains effaced. The right temporal horn is increased involving suggesting development of mild hydrocephalus. Fourth ventricle is stable in appearance. PARANASAL SINUSES: Unremarkable as visualized. No significant inflammatory changes. MASTOID AIR CELLS: Unremarkable as visualized. No inflammatory changes. OTHER FINDINGS: None. IMPRESSION: 1. Left frontal subdural collection, primarily lucent CSF for chronic hemorrhagic blood products, has increased in volume without acute hemorrhage appreciable at this time. Subacute residual subdural hemorrhagic blood products remain limited. Subdural drainage catheter unchanged in position superiorly with stable craniotomy noted left fronto parietal calvarium. Mild rightward midline shift slightly increased to 1.6 cm compared 1.3 cm previously. Subtle development of hydrocephalus is identified with right temporal horn increasing in volume. Left lateral and 3rd ventricles remain effaced. Fourth ventricle stable in appearance. 2. Stable loss of suprasellar cistern volume.
[2018-04-04] MEDS: Cefepime 1 GM in Sodium Chloride 0.9% 100 ML IVPB SCH ×2 (10:10→21:42)
[2018-04-04] MEDS: Labetalol 300 MG in Dextrose 5% In Water 240 ML IV SCH ×3 (10:15→15:28)
[2018-04-04] MEDS ORDERED: Propofol 10 mg/ml 1,000 MG/100 ML VIAL ONE ×2 (10:43→12:11)
[2018-04-04] MEDS ORDERED: Bacitracin Ointment 30 GM TUBE ONE (10:48)
[2018-04-04] MEDS ORDERED: Absorbable Gelatin Sponge Size 12-7 ONE ×2 (10:48→11:50)
--- NOTE | 2018-04-04 10:48 | CP.CCUPN ---
<Liam Garcia - Last Filed: 04/04/18 10:47> CCU Subjective - Physician Review Subjective (Free Text): PGY-[address] London service Patient is seen and examined at bedside. Patient in no acute distress, sitting in bed. No acute events overnight. Patient continue to have headaches last night. Left ventriculostomy drain in place, draining serous fluid. no neuro deficits. family at bedside (), patient reports good appetite. no further complaints. 04/03/18 18:01 CCU Objective - Vital Signs / Intake & Output Vital Signs (Last 4 hours): Vital Signs Temp Pulse Resp BP Pulse Ox 04/04/18 10:32 84 14 134/74 98 04/04/18 10:00 79 20 97 04/04/18 09:32 79 20 145/69 94 L 04/04/18 09:01 82 18 153/72 H 98 04/04/18 09:00 81 04/04/18 08:32 71 18 146/72 100 04/04/18 08:00 99.0 F 80 21 96 04/04/18 07:31 72 20 150/69 100 04/04/18 07:30 78 18 100 04/04/18 07:00 81 21 Intake and Output (Last 8hrs): Intake & Output 04/03/18 04/04/18 04/04/18 22:59 06:59 14:59 Intake Total 1515 600 150 Output Total 850 600 6 Balance 665 0 144 Weight 197 lb 0.19 oz Intake: Intake, IV Amount 675 600 150 Left Antecubital 75 Right Antecubital 675 600 75 Oral 840 0 Output: Drainage 6 Left Medial Parietal 6 Urine 850 600 Condom 0 600 Urethral ([place]) 850 Other: # Bowel Movements 0 0 - Physical Exam Head: Positive for: Other (dressing left parietal area of head, c/d/i ) Pupils: Positive for: PERRL Extroacular Muscles: Positive for: EOMI Conjunctiva: Positive for: Normal Mouth: Positive for: Moist Mucous Membranes Nose (Internal): Positive for: Normal Inspection Neck: Positive for: Normal Range of Motion Respiratory/Chest: Positive for: Clear to Auscultation. Negative for: Wheezes, Decreased Breath Sounds, Rales, Rhonchi Cardiovascular: Positive for: Regular Rate and Rhythm, Normal S1, S2 Abdomen: Positive for: Normal Bowel Sounds. Negative for: Tenderness, Distention Upper Extremity: Positive for: Normal Inspection Lower Extremity: Positive for: Normal Inspection Neurological: Positive for: GCS=15, CN II-XII Intact, Speech Normal Skin: Positive for: Warm, Dry, Normal Color Psychiatric: Positive for: Alert, Oriented x 3, Normal Insight, Normal Concentration, Normal Affect, Normal Mood - Medications Active Medications: Active Medications Generic Name Dose Route Start Last Admin Trade Name Freq PRN Reason Stop Dose Admin Acetaminophen 650 mg 04/02/18 20:14 04/02/18 20:43 Tylenol 325mg Tab PO 650 mg Q6 PRN Administration Pain, Mild (1-3) Levetiracetam 250 mg/ Sodium 102.5 mls @ 420 mls/hr 04/01/18 11:00 04/04/18 10:05 Chloride IVPB 420 mls/hr Q12H WALE Administration Dextrose/Sodium Chloride 1,000 mls @ 75 mls/hr 04/01/18 23:30 04/04/18 04:50 Dextrose 5%/0.9% Ns 1000 Ml IV Not Given .[id number] WALE Labetalol HCl 300 mg/ Dextrose 300 mls @ 60 mls/hr 04/04/18 09:30 IV .Q5H WALE Protocol 1 MG/MIN Cefepime HCl 1 gm/ Sodium 100 mls @ 100 mls/hr 04/04/18 10:00 04/04/18 10:10 Chloride IVPB 100 mls/hr Q12H WALE Administration Protocol Pantoprazole Sodium 40 mg 04/02/18 10:00 04/04/18 10:10 Protonix Inj IVP 40 mg DAILY WALE Administration - Patient Studies Lab Studies: Lab Studies 04/04/18 04/04/18 04/04/18 Range/Units 05:47 05:47 05:20 WBC 14.8 H (4.8-10.8) K/uL RBC 4.02 L (4.40-5.90) Mil/uL Hgb 9.0 L (12.0-18.0) g/dL Hct 28.4 L (35.0-51.0) % MCV 70.7 L (80.0-94.0) fL MCH 22.3 L (27.0-31.0) pg MCHC 31.5 L (33.0-37.0) g/dL RDW 14.9 H (11.5-14.5) % Plt Count 200 (130-400) K/uL MPV 8.4 (7.2-11.7) fL Neut % (Auto) 64.3 (50.0-75.0) % Lymph % (Auto) 29.7 (20.0-40.0) % Logan % (Auto) 5.4 (0.0-10.0) % Eos % (Auto) 0.1 (0.0-4.0) % Baso % (Auto) 0.5 (0.0-2.0) % Neut # (Auto) 9.5 H (1.8-7.0) K/uL Lymph # (Auto) 4.4 H (1.0-4.3) K/uL Logan # (Auto) 0.8 (0.0-0.8) K/uL Eos # (Auto) 0.0 (0.0-0.7) K/uL Baso # (Auto) 0.1 (0.0-0.2) K/uL Sodium 138 (132-148) mmol/L Potassium 3.6 (3.6-5.2) mmol/L Chloride 108 H (98-107) mmol/L Carbon Dioxide 23 (22-30) mmol/L Anion Gap 10 (10-20) BUN 10 (9-20) mg/dL Creatinine 0.9 (0.8-1.5) mg/dL Est GFR ( Amer) > 60 Est GFR (Non-Af Amer) > 60 POC Glucose (mg/dL) 169 H (65-110) mg/dL Random Glucose 162 H (75-110) mg/dL Calcium 7.8 L (8.6-10.4) mg/dl Phosphorus 2.7 (2.5-4.5) mg/dL Magnesium 2.1 (1.6-2.3) mg/dL Total Bilirubin 0.9 (0.2-1.3) mg/dL AST 36 (17-59) U/L ALT 64 (21-72) U/L Alkaline Phosphatase 67 (38-126) U/L Total Protein 6.5 (6.3-8.3) g/dL Albumin 3.8 (3.5-5.0) g/dL Globulin 2.7 (2.2-3.9) gm/dL Albumin/Globulin Ratio 1.4 (1.0-2.1) 04/03/18 04/03/18 04/03/18 Range/Units 23:48 17:43 11:51 WBC (4.8-10.8) K/uL RBC (4.40-5.90) Mil/uL Hgb (12.0-18.0) g/dL Hct (35.0-51.0) % MCV (80.0-94.0) fL MCH (27.0-31.0) pg MCHC (33.0-37.0) g/dL RDW (11.5-14.5) % Plt Count (130-400) K/uL MPV (7.2-11.7) fL Neut % (Auto) (50.0-75.0) % Lymph % (Auto) (20.0-40.0) % Logan % (Auto) (0.0-10.0) % Eos % (Auto) (0.0-4.0) % Baso % (Auto) (0.0-2.0) % Neut # (Auto) (1.8-7.0) K/uL Lymph # (Auto) (1.0-4.3) K/uL Logan # (Auto) (0.0-0.8) K/uL Eos # (Auto) (0.0-0.7) K/uL Baso # (Auto) (0.0-0.2) K/uL Sodium (132-148) mmol/L Potassium (3.6-5.2) mmol/L Chloride (98-107) mmol/L Carbon Dioxide (22-30) mmol/L Anion Gap (10-20) BUN (9-20) mg/dL Creatinine (0.8-1.5) mg/dL Est GFR ( Amer) Est GFR (Non-Af Amer) POC Glucose (mg/dL) 157 H 184 H 176 H (65-110) mg/dL Random Glucose (75-110) mg/dL Calcium (8.6-10.4) mg/dl Phosphorus (2.5-4.5) mg/dL Magnesium (1.6-2.3) mg/dL Total Bilirubin (0.2-1.3) mg/dL AST (17-59) U/L ALT (21-72) U/L Alkaline Phosphatase (38-126) U/L Total Protein (6.3-8.3) g/dL Albumin (3.5-5.0) g/dL Globulin (2.2-3.9) gm/dL Albumin/Globulin Ratio (1.0-2.1) Laboratory Results - last 24 hr 04/03/18 04/03/18 04/03/18 11:51 17:43 23:48 WBC RBC Hgb Hct MCV MCH MCHC RDW Plt Count MPV Neut % (Auto) Lymph % (Auto) Logan % (Auto) Eos % (Auto) Baso % (Auto) Neut # (Auto) Lymph # (Auto) Logan # (Auto) Eos # (Auto) Baso # (Auto) Sodium Potassium Chloride Carbon Dioxide Anion Gap BUN Creatinine Est GFR ( Amer) Est GFR (Non-Af Amer) POC Glucose (mg/dL) 176 H 184 H 157 H Random Glucose Calcium Phosphorus Magnesium Total Bilirubin AST ALT Alkaline Phosphatase Total Protein Albumin Globulin Albumin/Globulin Ratio 04/04/18 04/04/18 04/04/18 05:20 05:47 05:47 WBC 14.8 H RBC 4.02 L Hgb 9.0 L Hct 28.4 L MCV 70.7 L MCH 22.3 L MCHC 31.5 L RDW 14.9 H Plt Count 200 MPV 8.4 Neut % (Auto) 64.3 Lymph % (Auto) 29.7 Logan % (Auto) 5.4 Eos % (Auto) 0.1 Baso % (Auto) 0.5 Neut # (Auto) 9.5 H Lymph # (Auto) 4.4 H Logan # (Auto) 0.8 Eos # (Auto) 0.0 Baso # (Auto) 0.1 Sodium 138 Potassium 3.6 Chloride 108 H Carbon Dioxide 23 Anion Gap 10 BUN 10 Creatinine 0.9 Est GFR ( Amer) > 60 Est GFR (Non-Af Amer) > 60 POC Glucose (mg/dL) 169 H Random Glucose 162 H Calcium 7.8 L Phosphorus 2.7 Magnesium 2.1 Total Bilirubin 0.9 AST 36 ALT 64 Alkaline Phosphatase 67 Total Protein 6.5 Albumin 3.8 Globulin 2.7 Albumin/Globulin Ratio 1.4 Radiology Impressions: Radiology Impressions Head CT 04/03/18 08:00 IMPRESSION: 1. Level left fronto parietal craniotomy with subdural drainage catheter in situ. 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 Clinical correlation and follow-up CT are advised. 2. Loss of volume of the suprasellar cistern is identified with the basilar cisterns otherwise unremarkable. Discussed with ICU Nurse Lucia with written down and read back verification 04/03/2018 12:[address] 04/04/18 08:01 IMPRESSION: 1. Left frontal subdural collection, primarily lucent CSF for chronic hemorrhagic blood products, has increased in volume without acute hemorrhage appreciable at this time. Subacute residual subdural hemorrhagic blood products remain limited. Subdural drainage catheter unchanged in position superiorly with stable craniotomy noted left fronto parietal calvarium. Mild rightward midline shift slightly increased to 1.6 cm compared 1.3 cm previously. Subtle development of hydrocephalus is identified with right temporal horn increasing in volume. Left lateral and 3rd ventricles remain effaced. Fourth ventricle stable in appearance. 2. Stable loss of suprasellar cistern volume. Fingerstick Blood Sugar Results: 169 Critical Care Progress Note - Nutrition Nutrition: Nutrition Category Date Time Status Heart Healthy Diet [DIET] Diets 04/02/18 Dinner Active <Cuco London S - Last Filed: 04/04/18 15:40> CCU Subjective - Physician Review Critical Care Time Spent (in minutes): 40 CCU Objective - Vital Signs / Intake & Output Vital Signs (Last 4 hours): Vital Signs Temp Pulse Resp BP Pulse Ox 04/04/18 14:30 79 16 100 04/04/18 14:29 79 17 130/64 100 04/04/18 14:15 83 17 100 04/04/18 14:14 90 19 132/74 100 04/04/18 14:00 91 H 15 100 04/04/18 13:59 87 18 160/83 H 100 04/04/18 13:50 98.6 F 100 04/04/18 13:45 94 H 14 100 04/04/18 13:44 94 H 20 165/86 H 100 04/04/18 13:35 98.6 F 100 04/04/18 13:30 93 H 17 100 04/04/18 13:29 98 H 13 206/102 H 100 04/04/18 13:20 98.7 F 95 H 100 H 185/97 H 100 04/04/18 13:15 102 H 19 100 04/04/18 13:14 107 H 17 185/97 H 100 04/04/18 13:05 98.5 F 100 04/04/18 13:00 100 H 16 100 04/04/18 12:59 101 H 17 154/99 H 100 04/04/18 12:50 98.6 F 100 04/04/18 12:45 98 H 16 04/04/18 12:44 98 H 16 120/62 04/04/18 12:43 99 H 14 Intake and Output (Last 8hrs): Intake & Output 04/04/18 04/04/18 04/04/18 06:59 14:59 22:59 Intake Total 600 1145 140 Output Total 600 819 Balance 0 326 140 Weight 197 lb 0.19 oz Intake: IV 630 140 Intake, IV Amount 600 515 Left Antecubital 440 Right Antecubital 600 75 Oral 0 Output: Drainage 9 Left Medial Parietal 9 Urine 600 810 Condom 600 200 Urethral ([place]) 590 Other: # Bowel Movements 0 0 - Medications Active Medications: Active Medications Generic Name Dose Route Start Last Admin Trade Name Freq PRN Reason Stop Dose Admin Acetaminophen 650 mg 04/02/18 20:14 04/02/18 20:43 Tylenol 325mg Tab PO 650 mg Q6 PRN Administration Pain, Mild (1-3) Levetiracetam 250 mg/ Sodium 102.5 mls @ 420 mls/hr 04/01/18 11:00 04/04/18 10:05 Chloride IVPB 420 mls/hr Q12H WALE Administration Dextrose/Sodium Chloride 1,000 mls @ 75 mls/hr 04/01/18 23:30 04/04/18 04:50 Dextrose 5%/0.9% Ns 1000 Ml IV Not Given .[id number] WALE Labetalol HCl 300 mg/ Dextrose 300 mls @ 60 mls/hr 04/04/18 09:30 04/04/18 15:28 IV 1 mg/min .Q5H WALE 60 mls/hr Titration Protocol 1 MG/MIN Cefepime HCl 1 gm/ Sodium 100 mls @ 100 mls/hr 04/04/18 10:00 04/04/18 10:10 Chloride IVPB 100 mls/hr Q12H WALE Administration Protocol Pantoprazole Sodium 40 mg 04/02/18 10:00 04/04/18 10:10 Protonix Inj IVP 40 mg DAILY WALE Administration - Patient Studies Lab Studies: Lab Studies 04/04/18 04/04/18 04/04/18 Range/Units 14:35 13:02 12:04 WBC (4.8-10.8) K/uL RBC (4.40-5.90) Mil/uL Hgb (12.0-18.0) g/dL Hct (35.0-51.0) % MCV (80.0-94.0) fL MCH (27.0-31.0) pg MCHC (33.0-37.0) g/dL RDW (11.5-14.5) % Plt Count (130-400) K/uL MPV (7.2-11.7) fL Neut % (Auto) (50.0-75.0) % Lymph % (Auto) (20.0-40.0) % Logan % (Auto) (0.0-10.0) % Eos % (Auto) (0.0-4.0) % Baso % (Auto) (0.0-2.0) % Neut # (Auto) (1.8-7.0) K/uL Lymph # (Auto) (1.0-4.3) K/uL Logan # (Auto) (0.0-0.8) K/uL Eos # (Auto) (0.0-0.7) K/uL Baso # (Auto) (0.0-0.2) K/uL Puncture Site Rra pCO2 32 L (35-45) mm/Hg pO2 340 H (80-100) mm/Hg HCO3 22.9 (21-28) mmol/L ABG pH 7.43 (7.35-7.45) ABG Total CO2 22.2 (22-28) mmol/L ABG O2 Saturation 97.2 (95-98) % ABG Base Excess -2.6 L (-2.0-3.0) mmol/L ABG Hemoglobin 8.7 L (11.7-17.4) g/dL ABG Carboxyhemoglobin 0 L (0.5-1.5) % POC ABG HHb (Measured) 2.8 (0.0-5.0) % ABG Methemoglobin 0.0 (0.0-3.0) % Frankie Test Pos A-a O2 Difference 333.0 mm/Hg Respiratory Index 1.0 Hgb O2 Saturation 97.2 (95.0-98.0) % Vent Mode Prvc Mechanical Rate 16 FiO2 100.0 % Tidal Volume 500 PEEP 5 Sodium (132-148) mmol/L Potassium (3.6-5.2) mmol/L Chloride (98-107) mmol/L Carbon Dioxide (22-30) mmol/L Anion Gap (10-20) BUN (9-20) mg/dL Creatinine (0.8-1.5) mg/dL Est GFR ( Amer) Est GFR (Non-Af Amer) POC Glucose (mg/dL) 149 H (65-110) mg/dL Random Glucose (75-110) mg/dL Calcium (8.6-10.4) mg/dl Phosphorus (2.5-4.5) mg/dL Magnesium (1.6-2.3) mg/dL Total Bilirubin (0.2-1.3) mg/dL AST (17-59) U/L ALT (21-72) U/L Alkaline Phosphatase (38-126) U/L Total Protein (6.3-8.3) g/dL Albumin (3.5-5.0) g/dL Globulin (2.2-3.9) gm/dL Albumin/Globulin Ratio (1.0-2.1) Urine Color Yellow (YELLOW) Urine Clarity Clear (Clear) Urine pH 6.0 (5.0-8.0) Ur Specific Donaldson 1.016 (1.003-1.030) Urine Protein Negative (NEGATIVE) mg/dL Urine Glucose (UA) Normal (Normal) mg/dL Urine Ketones Negative (NEGATIVE) mg/dL Urine Blood 2+ H (NEGATIVE) Urine Nitrate Negative (NEGATIVE) Urine Bilirubin Negative (NEGATIVE) Urine Urobilinogen Normal (0.2-1.0) mg/dL Ur Leukocyte Esterase Neg (Negative) Herve/uL Urine WBC (Auto) 1 (0-5) /hpf Urine RBC (Auto) 83 H (0-3) /hpf Blood Type Antibody Screen 04/04/18 04/04/18 04/04/18 Range/Units 10:28 05:47 05:47 WBC 14.8 H (4.8-10.8) K/uL RBC 4.02 L (4.40-5.90) Mil/uL Hgb 9.0 L (12.0-18.0) g/dL Hct 28.4 L (35.0-51.0) % MCV 70.7 L (80.0-94.0) fL MCH 22.3 L (27.0-31.0) pg MCHC 31.5 L (33.0-37.0) g/dL RDW 14.9 H (11.5-14.5) % Plt Count 200 (130-400) K/uL MPV 8.4 (7.2-11.7) fL Neut % (Auto) 64.3 (50.0-75.0) % Lymph % (Auto) 29.7 (20.0-40.0) % Logan % (Auto) 5.4 (0.0-10.0) % Eos % (Auto) 0.1 (0.0-4.0) % Baso % (Auto) 0.5 (0.0-2.0) % Neut # (Auto) 9.5 H (1.8-7.0) K/uL Lymph # (Auto) 4.4 H (1.0-4.3) K/uL Logan # (Auto) 0.8 (0.0-0.8) K/uL Eos # (Auto) 0.0 (0.0-0.7) K/uL Baso # (Auto) 0.1 (0.0-0.2) K/uL Puncture Site pCO2 (35-45) mm/Hg pO2 (80-100) mm/Hg HCO3 (21-28) mmol/L ABG pH (7.35-7.45) ABG Total CO2 (22-28) mmol/L ABG O2 Saturation (95-98) % ABG Base Excess (-2.0-3.0) mmol/L ABG Hemoglobin (11.7-17.4) g/dL ABG Carboxyhemoglobin (0.5-1.5) % POC ABG HHb (Measured) (0.0-5.0) % ABG Methemoglobin (0.0-3.0) % Frankie Test A-a O2 Difference mm/Hg Respiratory Index Hgb O2 Saturation (95.0-98.0) % Vent Mode Mechanical Rate FiO2 % Tidal Volume PEEP Sodium 138 (132-148) mmol/L Potassium 3.6 (3.6-5.2) mmol/L Chloride 108 H (98-107) mmol/L Carbon Dioxide 23 (22-30) mmol/L Anion Gap 10 (10-20) BUN 10 (9-20) mg/dL Creatinine 0.9 (0.8-1.5) mg/dL Est GFR ( Amer) > 60 Est GFR (Non-Af Amer) > 60 POC Glucose (mg/dL) (65-110) mg/dL Random Glucose 162 H (75-110) mg/dL Calcium 7.8 L (8.6-10.4) mg/dl Phosphorus 2.7 (2.5-4.5) mg/dL Magnesium 2.1 (1.6-2.3) mg/dL Total Bilirubin 0.9 (0.2-1.3) mg/dL AST 36 (17-59) U/L ALT 64 (21-72) U/L Alkaline Phosphatase 67 (38-126) U/L Total Protein 6.5 (6.3-8.3) g/dL Albumin 3.8 (3.5-5.0) g/dL Globulin 2.7 (2.2-3.9) gm/dL Albumin/Globulin Ratio 1.4 (1.0-2.1) Urine Color (YELLOW) Urine Clarity (Clear) Urine pH (5.0-8.0) Ur Specific Donaldson (1.003-1.030) Urine Protein (NEGATIVE) mg/dL Urine Glucose (UA) (Normal) mg/dL Urine Ketones (NEGATIVE) mg/dL Urine Blood (NEGATIVE) Urine Nitrate (NEGATIVE) Urine Bilirubin (NEGATIVE) Urine Urobilinogen (0.2-1.0) mg/dL Ur Leukocyte Esterase (Negative) Herve/uL Urine WBC (Auto) (0-5) /hpf Urine RBC (Auto) (0-3) /hpf Blood Type O POSITIVE Antibody Screen Negative 04/04/18 04/03/18 04/03/18 Range/Units 05:20 23:48 17:43 WBC (4.8-10.8) K/uL RBC (4.40-5.90) Mil/uL Hgb (12.0-18.0) g/dL Hct (35.0-51.0) % MCV (80.0-94.0) fL MCH (27.0-31.0) pg MCHC (33.0-37.0) g/dL RDW (11.5-14.5) % Plt Count (130-400) K/uL MPV (7.2-11.7) fL Neut % (Auto) (50.0-75.0) % Lymph % (Auto) (20.0-40.0) % Logan % (Auto) (0.0-10.0) % Eos % (Auto) (0.0-4.0) % Baso % (Auto) (0.0-2.0) % Neut # (Auto) (1.8-7.0) K/uL Lymph # (Auto) (1.0-4.3) K/uL Logan # (Auto) (0.0-0.8) K/uL Eos # (Auto) (0.0-0.7) K/uL Baso # (Auto) (0.0-0.2) K/uL Puncture Site pCO2 (35-45) mm/Hg pO2 (80-100) mm/Hg HCO3 (21-28) mmol/L ABG pH (7.35-7.45) ABG Total CO2 (22-28) mmol/L ABG O2 Saturation (95-98) % ABG Base Excess (-2.0-3.0) mmol/L ABG Hemoglobin (11.7-17.4) g/dL ABG Carboxyhemoglobin (0.5-1.5) % POC ABG HHb (Measured) (0.0-5.0) % ABG Methemoglobin (0.0-3.0) % Frankie Test A-a O2 Difference mm/Hg Respiratory Index Hgb O2 Saturation (95.0-98.0) % Vent Mode Mechanical Rate FiO2 % Tidal Volume PEEP Sodium (132-148) mmol/L Potassium (3.6-5.2) mmol/L Chloride (98-107) mmol/L Carbon Dioxide (22-30) mmol/L Anion Gap (10-20) BUN (9-20) mg/dL Creatinine (0.8-1.5) mg/dL Est GFR ( Amer) Est GFR (Non-Af Amer) POC Glucose (mg/dL) 169 H 157 H 184 H (65-110) mg/dL Random Glucose (75-110) mg/dL Calcium (8.6-10.4) mg/dl Phosphorus (2.5-4.5) mg/dL Magnesium (1.6-2.3) mg/dL Total Bilirubin (0.2-1.3) mg/dL AST (17-59) U/L ALT (21-72) U/L Alkaline Phosphatase (38-126) U/L Total Protein (6.3-8.3) g/dL Albumin (3.5-5.0) g/dL Globulin (2.2-3.9) gm/dL Albumin/Globulin Ratio (1.0-2.1) Urine Color (YELLOW) Urine Clarity (Clear) Urine pH (5.0-8.0) Ur Specific Donaldson (1.003-1.030) Urine Protein (NEGATIVE) mg/dL Urine Glucose (UA) (Normal) mg/dL Urine Ketones (NEGATIVE) mg/dL Urine Blood (NEGATIVE) Urine Nitrate (NEGATIVE) Urine Bilirubin (NEGATIVE) Urine Urobilinogen (0.2-1.0) mg/dL Ur Leukocyte Esterase (Negative) Herve/uL Urine WBC (Auto) (0-5) /hpf Urine RBC (Auto) (0-3) /hpf Blood Type Antibody Screen Laboratory Results - last 24 hr 04/03/18 04/03/18 04/04/18 17:43 23:48 05:20 WBC RBC Hgb Hct MCV MCH MCHC RDW Plt Count MPV Neut % (Auto) Lymph % (Auto) Logan % (Auto) Eos % (Auto) Baso % (Auto) Neut # (Auto) Lymph # (Auto) Logan # (Auto) Eos # (Auto) Baso # (Auto) Puncture Site pCO2 pO2 HCO3 ABG pH ABG Total CO2 ABG O2 Saturation ABG Base Excess ABG Hemoglobin ABG Carboxyhemoglobin POC ABG HHb (Measured) ABG Methemoglobin Frankie Test A-a O2 Difference Respiratory Index Hgb O2 Saturation Vent Mode Mechanical Rate FiO2 Tidal Volume PEEP Sodium Potassium Chloride Carbon Dioxide Anion Gap BUN Creatinine Est GFR ( Amer) Est GFR (Non-Af Amer) POC Glucose (mg/dL) 184 H 157 H 169 H Random Glucose Calcium Phosphorus Magnesium Total Bilirubin AST ALT Alkaline Phosphatase Total Protein Albumin Globulin Albumin/Globulin Ratio Urine Color Urine Clarity Urine pH Ur Specific Donaldson Urine Protein Urine Glucose (UA) Urine Ketones Urine Blood Urine Nitrate Urine Bilirubin Urine Urobilinogen Ur Leukocyte Esterase Urine WBC (Auto) Urine RBC (Auto) Blood Type Antibody Screen 04/04/18 04/04/18 04/04/18 05:47 05:47 10:28 WBC 14.8 H RBC 4.02 L Hgb 9.0 L Hct 28.4 L MCV 70.7 L MCH 22.3 L MCHC 31.5 L RDW 14.9 H Plt Count 200 MPV 8.4 Neut % (Auto) 64.3 Lymph % (Auto) 29.7 Logan % (Auto) 5.4 Eos % (Auto) 0.1 Baso % (Auto) 0.5 Neut # (Auto) 9.5 H Lymph # (Auto) 4.4 H Logan # (Auto) 0.8 Eos # (Auto) 0.0 Baso # (Auto) 0.1 Puncture Site pCO2 pO2 HCO3 ABG pH ABG Total CO2 ABG O2 Saturation ABG Base Excess ABG Hemoglobin ABG Carboxyhemoglobin POC ABG HHb (Measured) ABG Methemoglobin Frankie Test A-a O2 Difference Respiratory Index Hgb O2 Saturation Vent Mode Mechanical Rate FiO2 Tidal Volume PEEP Sodium 138 Potassium 3.6 Chloride 108 H Carbon Dioxide 23 Anion Gap 10 BUN 10 Creatinine 0.9 Est GFR ( Amer) > 60 Est GFR (Non-Af Amer) > 60 POC Glucose (mg/dL) Random Glucose 162 H Calcium 7.8 L Phosphorus 2.7 Magnesium 2.1 Total Bilirubin 0.9 AST 36 ALT 64 Alkaline Phosphatase 67 Total Protein 6.5 Albumin 3.8 Globulin 2.7 Albumin/Globulin Ratio 1.4 Urine Color Urine Clarity Urine pH Ur Specific Donaldson Urine Protein Urine Glucose (UA) Urine Ketones Urine Blood Urine Nitrate Urine Bilirubin Urine Urobilinogen Ur Leukocyte Esterase Urine WBC (Auto) Urine RBC (Auto) Blood Type O POSITIVE Antibody Screen Negative 04/04/18 04/04/18 04/04/18 12:04 13:02 14:35 WBC RBC Hgb Hct MCV MCH MCHC RDW Plt Count MPV Neut % (Auto) Lymph % (Auto) Logan % (Auto) Eos % (Auto) Baso % (Auto) Neut # (Auto) Lymph # (Auto) Logan # (Auto) Eos # (Auto) Baso # (Auto) Puncture Site Rra pCO2 32 L pO2 340 H HCO3 22.9 ABG pH 7.43 ABG Total CO2 22.2 ABG O2 Saturation 97.2 ABG Base Excess -2.6 L ABG Hemoglobin 8.7 L ABG Carboxyhemoglobin 0 L POC ABG HHb (Measured) 2.8 ABG Methemoglobin 0.0 Frankie Test Pos A-a O2 Difference 333.0 Respiratory Index 1.0 Hgb O2 Saturation 97.2 Vent Mode Prvc Mechanical Rate 16 FiO2 100.0 Tidal Volume 500 PEEP 5 Sodium Potassium Chloride Carbon Dioxide Anion Gap BUN Creatinine Est GFR ( Amer) Est GFR (Non-Af Amer) POC Glucose (mg/dL) 149 H Random Glucose Calcium Phosphorus Magnesium Total Bilirubin AST ALT Alkaline Phosphatase Total Protein Albumin Globulin Albumin/Globulin Ratio Urine Color Yellow Urine Clarity Clear Urine pH 6.0 Ur Specific Donaldson 1.016 Urine Protein Negative Urine Glucose (UA) Normal Urine Ketones Negative Urine Blood 2+ H Urine Nitrate Negative Urine Bilirubin Negative Urine Urobilinogen Normal Ur Leukocyte Esterase Neg Urine WBC (Auto) 1 Urine RBC (Auto) 83 H Blood Type Antibody Screen Radiology Impressions: Radiology Impressions Head CT 04/04/18 08:01 IMPRESSION: 1. Left frontal subdural collection, primarily lucent CSF for chronic hemorrhagic blood products, has increased in volume without acute hemorrhage appreciable at this time. Subacute residual subdural hemorrhagic blood products remain limited. Subdural drainage catheter unchanged in position superiorly with stable craniotomy noted left fronto parietal calvarium. Mild rightward midline shift slightly increased to 1.6 cm compared 1.3 cm previously. Subtle development of hydrocephalus is identified with right temporal horn increasing in volume. Left lateral and 3rd ventricles remain effaced. Fourth ventricle stable in appearance. 2. Stable loss of suprasellar cistern volume. Chest X-Ray 04/04/18 12:55 IMPRESSION: ET tube appropriately positioned. No acute infiltrate. Critical Care Progress Note - Nutrition Nutrition: Nutrition Category Date Time Status Heart Healthy Diet [DIET] Diets 04/02/18 Dinner Active Attending/Attestation - Attestation I have personally seen and examined this patient.: Yes I have fully participated in the care of the patient.: Yes I have reviewed all pertinent clinical information: Yes Notes (Text): 04/04/18 15:37 Patient seen and examined in the intensive care unit. Case discussed with housestaff in the morning rounds. Patient more lethargic this morning and CAT scan of the head showed worsening hematoma Patient was taken to OR for evacuation of hematoma Patient on ventilatory support postop Continue present treatment and follow-up CAT scan of the head in the a.m. Patient started on labetalol drip for hypertension
[2018-04-04] MEDS ORDERED: Thrombin Topical 20,000 Intl Units Spray Kit TOP ONE (10:49)
[2018-04-04] MEDS ORDERED: Rocuronium 10 mg/ml (5 ml) ONE (10:49)
[2018-04-04] MEDS ORDERED: Bacitracin 150,000 UNIT in Sodium Chloride 0.9% Irrig 3,000 ML IR SCH (11:30)
[2018-04-04 12:16] LABS: URINE BILIRUBIN NEGATIVE (NEGATIVE); URINE BLOOD 2+ (NEGATIVE); URINE CLARITY Clear (Clear); URINE COLOR Yellow (YELLOW); URINE GLUCOSE (UA) NORMAL (Normal); URINE LEUKOCYTE ESTERASE NEG Leu/uL (Negative); URINE PROTEIN NEGATIVE (NEGATIVE); URINE UROBILINOGEN NORMAL mg/dL (0.2-1.0)
--- NOTE | 2018-04-04 13:27 | RAD ---
Date of service: 04/04/2018 HISTORY: s/p craniotomy, evacuation COMPARISON: 04/01/2018 FINDINGS: LUNGS: No active pulmonary disease. PLEURA: No significant pleural effusion identified, no pneumothorax apparent. CARDIOVASCULAR: There is atherosclerotic calcification of the thoracic aortic arch. Normal cardiac size. No congestive change. Endotracheal tube tip positioned approximately 5.1 cm above the tracheal deep. OSSEOUS STRUCTURES: No significant abnormalities. VISUALIZED UPPER ABDOMEN: Normal. OTHER FINDINGS: None. IMPRESSION: ET tube appropriately positioned. No acute infiltrate.
[2018-04-04 14:42] LABS: ABG ALLEN TEST POS; ARTERIAL BLOOD GAS HCO3 22.9 mmol/L (21-28); ARTERIAL BLOOD GAS HEMOGLOBIN 8.7 g/dL (11.7-17.4); ARTERIAL BLOOD GAS O2 SAT 97.2 % (95-98); ARTERIAL BLOOD GAS PCO2 32 mm/Hg (35-45); ARTERIAL BLOOD GAS PH 7.43 (7.35-7.45); ARTERIAL BLOOD GAS PO2 340 mm/Hg (80-100); ARTERIAL BLOOD GAS TCO2 22.2 mmol/L (22-28)
[2018-04-04 20:04] LABS: HEMOGLOBIN 8.6 g/dL (12.0-18.0); MEAN CELL VOLUME 68.9 fL (80.0-94.0); MEAN CORPUSCULAR HEMOGLOBIN 22.1 pg (27.0-31.0); MEAN CORPUSCULAR HGB CONC 32.1 g/dL (33.0-37.0); MEAN PLATELET VOLUME 7.7 fL (7.2-11.7); RBC 3.88 Mil/uL (4.40-5.90); RED CELL DISTRIBUTION WIDTH 14.9 % (11.5-14.5); WHITE BLOOD COUNT 14.1 K/uL (4.8-10.8)
--- NOTE | 2018-04-04 22:59 | CP.PCM.PN ---
Subjective - Date & Time of Evaluation Date of Evaluation: 04/04/18 Time of Evaluation: 22:59 - Subjective Subjective: dictated Objective - Vital Signs/Intake and Output Vital Signs (last 24 hours): Temp Pulse Resp BP Pulse Ox 98.3 F 76 13 118/58 L 100 04/04/18 20:00 04/04/18 22:09 04/04/18 22:09 04/04/18 22:09 04/04/18 22:09 Intake and Output: 04/04/18 04/05/18 18:59 06:59 Intake Total 1395 100 Output Total 1039 145 Balance 356 -45 - Medications Medications: Current Medications Acetaminophen (Tylenol 325mg Tab) 650 mg PO Q6 PRN PRN Reason: Pain, Mild (1-3) Last Admin: 04/02/18 20:43 Dose: 650 mg Levetiracetam 250 mg/ Sodium (Chloride) 102.5 mls @ 420 mls/hr IVPB Q12H [facility] Last Admin: 04/04/18 22:07 Dose: 420 mls/hr Cefepime HCl 1 gm/ Sodium (Chloride) 100 mls @ 100 mls/hr IVPB Q12H [facility]; Protocol Last Admin: 04/04/18 21:42 Dose: 100 mls/hr Pantoprazole Sodium (Protonix Inj) 40 mg IVP DAILY [facility] Last Admin: 04/04/18 10:10 Dose: 40 mg - Labs Labs: 04/04/18 20:02 04/04/18 05:47 PT 12.1 SECONDS (9.7-12.2) 04/03/18 06:32 INR 1.1 04/03/18 06:32 APTT 29 SECONDS (21-34) 04/03/18 06:32
--- NOTE | 2018-04-05 02:52 | PN ---
DATE: 04/04/2018 SUBJECTIVE: Postop day 3. The patient is more awake. Afebrile. No shortness of breath. No hemiplegia or hemiparesis. PHYSICAL EXAMINATION: VITAL SIGNS: Blood pressure 123/62, pulse 79, respiratory rate 19, temperature 98. LUNGS: Clear. CARDIOVASCULAR SYSTEM: S1 and S2 are regular. ABDOMEN: Soft. ASSESSMENT: 1. Subdural hematoma, status post craniotomy. 2. Anemia. 3. Hypertension. PLAN: Continue current medications. Monitor the patient. Rogelio Carroll MD
[2018-04-05 05:44] LABS: ABG ALLEN TEST POS; ARTERIAL BLOOD GAS HCO3 23.9 mmol/L (21-28); ARTERIAL BLOOD GAS HEMOGLOBIN 8.3 g/dL (11.7-17.4); ARTERIAL BLOOD GAS O2 SAT 97.5 % (95-98); ARTERIAL BLOOD GAS PCO2 34 mm/Hg (35-45); ARTERIAL BLOOD GAS PH 7.43 (7.35-7.45); ARTERIAL BLOOD GAS PO2 500 mm/Hg (80-100); ARTERIAL BLOOD GAS TCO2 23.6 mmol/L (22-28)
[2018-04-05 06:13] LABS: BASO # 0.1 K/uL (0.0-0.2); BASO % 0.5 % (0.0-2.0); EOS # 0.3 K/uL (0.0-0.7); EOS % 2.4 % (0.0-4.0); HEMOGLOBIN 8.3 g/dL (12.0-18.0); LYMPH # 4.4 K/uL (1.0-4.3); LYMPH % 36.8 % (20.0-40.0); MEAN CELL VOLUME 72.2 fL (80.0-94.0); MEAN CORPUSCULAR HEMOGLOBIN 22.7 pg (27.0-31.0); MEAN CORPUSCULAR HGB CONC 31.4 g/dL (33.0-37.0); MEAN PLATELET VOLUME 8.3 fL (7.2-11.7); MONO # 0.7 K/uL (0.0-0.8); MONO % 5.8 % (0.0-10.0); NEUT # 6.5 K/uL (1.8-7.0); NEUT % 54.5 % (50.0-75.0); RBC 3.67 Mil/uL (4.40-5.90); RED CELL DISTRIBUTION WIDTH 14.6 % (11.5-14.5)
--- NOTE | 2018-04-05 06:25 | OP ---
PROCEDURE DATE: 04/04/2018 PREOPERATIVE DIAGNOSIS: Residual subdural hematoma, left side. POSTOPERATIVE DIAGNOSIS: Residual subdural hematoma, left side. PROCEDURE: Re-exploration of craniotomy site, drainage of subdural hematoma. SURGEON: Bhanu Srivastava MD. DESCRIPTION OF PROCEDURE: It was noticed that there was a change in the patient's mental status earlier this morning. He became more lethargic and was not following commands or talking. A CT scan was obtained; it demonstrated mostly a spinal fluid collection, density collection, and intracranial air. There was a small amount of evidence of blood products in the subdural space. There was a significant shift. Because of the change in mental status and some weakness that was noticed in the right arm, I discussed the options with the daughter and we agreed upon reexploration of the craniotomy. He was brought back to the operating room, he was intubated. His head was turned to the right. The previous sutures and drain were removed. The scalp was prepped and draped in usual manner. The previous incision was opened, removing the subgaleal sutures. The underlying cranial plate was removed by removing the RapidFix plates and elevating the plate. Underneath, there was a layer of Gelfoam and that layer was clearly sunken and depressed. There was no evidence of elevated intracranial pressure. The Gelfoam was removed. The dura underneath was pulsatile. The dura was then opened, and there was some fluid within the subdural space, likely blood-tinged spinal fluid. At this point, the dura was reflected back and the subdural space was irrigated with copious amounts of antibiotic irrigation. After all returns were clear, a new 12-Georgian red rubber catheter with extra side holes was passed through the anterior cayden hole through a separate stab wound directly posteriorly. We irrigated through the catheter and around the catheter through the cranial opening. The returns were clear. At this point, three small cranial fix plates were used to reattach the bone plate after covering the dura with Gelfoam. The dura could not be fully re-approximated. The wound was again irrigated and again irrigation returns were clear from the drain. The scalp was then re-approximated in two layers, 2-0 Vicryl and skin marisol. Sterile dressing was applied. The patient was taken back to the ICU, non reversed, intubated. His pupils were small. He remained in hemodynamic stable condition throughout. All counts were correct. There was no specimen. Bhanu Srivastava MD
[2018-04-05 06:50] LABS: ALB/GLOB RATIO 1.3 (1.0-2.1); ALBUMIN 3.4 g/dL (3.5-5.0); ALT/SGPT 59 U/L (21-72); AST/SGOT 40 U/L (17-59); BLOOD UREA NITROGEN 15 mg/dL (9-20); CALCIUM 7.8 mg/dl (8.6-10.4); GFR NON-AFRICAN AMERICAN > 60
--- NOTE | 2018-04-05 08:57 | RAD ---
Date of service: 04/05/2018 PROCEDURE: CHEST RADIOGRAPH, 1 VIEW HISTORY: Pt vented COMPARISON: None available. FINDINGS: LUNGS: Clear. PLEURA: No pneumothorax or pleural fluid seen. CARDIOVASCULAR: Minimal atherosclerotic calcification noted at the aortic arch. Normal heart size. ET tube unchanged in position. No congestive change. OSSEOUS STRUCTURES: No significant abnormalities. VISUALIZED UPPER ABDOMEN: Normal. OTHER FINDINGS: None. IMPRESSION: No active disease.
[2018-04-05] MEDS: Cefepime 1 GM in Sodium Chloride 0.9% 100 ML IVPB SCH ×2 (09:30→21:17)
--- NOTE | 2018-04-05 09:52 | CP.PCM.PN ---
Subjective - Date & Time of Evaluation Date of Evaluation: 04/05/18 Time of Evaluation: 09:51 - Subjective Subjective: POD1 remains intubated SAVANNAH awake alert follow commands good st bilat Plan to extubate today and repeat ct tomorrow keep 100% O2 for 24 hrs Objective - Vital Signs/Intake and Output Vital Signs (last 24 hours): Temp Pulse Resp BP Pulse Ox 99.3 F 78 14 117/55 L 100 04/05/18 08:00 04/05/18 08:00 04/05/18 08:00 04/05/18 07:59 04/05/18 08:00 Intake and Output: 04/05/18 04/05/18 06:59 18:59 Intake Total 200 0 Output Total 570 60 Balance -370 -60 - Medications Medications: Current Medications Acetaminophen (Tylenol 325mg Tab) 650 mg PO Q6 PRN PRN Reason: Pain, Mild (1-3) Last Admin: 04/02/18 20:43 Dose: 650 mg Levetiracetam 250 mg/ Sodium (Chloride) 102.5 mls @ 420 mls/hr IVPB Q12H [facility] Last Admin: 04/04/18 22:07 Dose: 420 mls/hr Cefepime HCl 1 gm/ Sodium (Chloride) 100 mls @ 100 mls/hr IVPB Q12H [facility]; Protocol Last Admin: 04/05/18 09:30 Dose: 100 mls/hr Pantoprazole Sodium (Protonix Inj) 40 mg IVP DAILY [facility] Last Admin: 04/05/18 09:30 Dose: 40 mg - Labs Labs: 04/05/18 06:08 04/05/18 06:08 PT 12.1 SECONDS (9.7-12.2) 04/03/18 06:32 INR 1.1 04/03/18 06:32 APTT 29 SECONDS (21-34) 04/03/18 06:32
--- NOTE | 2018-04-05 14:27 | CP.CCUPN ---
<Ramu Santiago - Last Filed: 04/05/18 18:42> CCU Objective - Vital Signs / Intake & Output Vital Signs (Last 4 hours): Vital Signs Temp Pulse Resp BP Pulse Ox 04/05/18 18:00 73 14 99 04/05/18 17:59 73 14 115/59 L 100 04/05/18 17:00 78 15 100 04/05/18 16:59 78 15 116/61 100 04/05/18 16:00 98.6 F 72 13 99 04/05/18 15:59 76 12 112/57 L 99 04/05/18 15:00 83 19 100 04/05/18 14:59 82 17 126/59 L 100 Intake and Output (Last 8hrs): Intake & Output 04/05/18 04/05/18 04/05/18 06:59 14:59 22:59 Intake Total 100 200 0 Output Total 425 790 340 Balance -325 -590 -340 Weight 199 lb 4.766 oz Intake: Intake, IV Amount 100 200 0 Left Antecubital 100 200 0 Right Antecubital 0 0 Oral 0 0 0 Output: Drainage 60 20 L frontoparietal 60 20 venticulostomy Urine 365 790 320 Urethral ([place]) 365 790 320 Other: # Bowel Movements 0 0 0 - Medications Active Medications: Active Medications Generic Name Dose Route Start Last Admin Trade Name Freq PRN Reason Stop Dose Admin Acetaminophen 650 mg 04/02/18 20:14 04/02/18 20:43 Tylenol 325mg Tab PO 650 mg Q6 PRN Administration Pain, Mild (1-3) Levetiracetam 250 mg/ Sodium 102.5 mls @ 420 mls/hr 04/01/18 11:00 04/05/18 11:16 Chloride IVPB 420 mls/hr Q12H WALE Administration Cefepime HCl 1 gm/ Sodium 100 mls @ 100 mls/hr 04/04/18 10:00 04/05/18 09:30 Chloride IVPB 100 mls/hr Q12H WALE Administration Protocol Pantoprazole Sodium 40 mg 04/02/18 10:00 04/05/18 09:30 Protonix Inj IVP 40 mg DAILY WALE Administration - Patient Studies Lab Studies: Microbiology Studies 04/04/18 12:04 Urine Culture - Final Urine,[place] No Growth (<1,000 CFU/ML) Lab Studies 04/05/18 04/05/18 04/05/18 Range/Units 17:24 11:58 06:08 WBC (4.8-10.8) K/uL RBC (4.40-5.90) Mil/uL Hgb (12.0-18.0) g/dL Hct (35.0-51.0) % MCV (80.0-94.0) fL MCH (27.0-31.0) pg MCHC (33.0-37.0) g/dL RDW (11.5-14.5) % Plt Count (130-400) K/uL MPV (7.2-11.7) fL Neut % (Auto) (50.0-75.0) % Lymph % (Auto) (20.0-40.0) % [place] % (Auto) (0.0-10.0) % Eos % (Auto) (0.0-4.0) % Baso % (Auto) (0.0-2.0) % Neut # (Auto) (1.8-7.0) K/uL Lymph # (Auto) (1.0-4.3) K/uL [place] # (Auto) (0.0-0.8) K/uL Eos # (Auto) (0.0-0.7) K/uL Baso # (Auto) (0.0-0.2) K/uL Puncture Site pCO2 (35-45) mm/Hg pO2 (80-100) mm/Hg HCO3 (21-28) mmol/L ABG pH (7.35-7.45) ABG Total CO2 (22-28) mmol/L ABG O2 Saturation (95-98) % ABG Base Excess (-2.0-3.0) mmol/L ABG Hemoglobin (11.7-17.4) g/dL ABG Carboxyhemoglobin (0.5-1.5) % POC ABG HHb (Measured) (0.0-5.0) % ABG Methemoglobin (0.0-3.0) % Frankie Test A-a O2 Difference mm/Hg Respiratory Index Hgb O2 Saturation (95.0-98.0) % Vent Mode Mechanical Rate FiO2 % Tidal Volume PEEP Sodium 140 (132-148) mmol/L Potassium 3.9 (3.6-5.2) mmol/L Chloride 112 H (98-107) mmol/L Carbon Dioxide 23 (22-30) mmol/L Anion Gap 10 (10-20) BUN 15 (9-20) mg/dL Creatinine 0.9 (0.8-1.5) mg/dL Est GFR ( Amer) > 60 Est GFR (Non-Af Amer) > 60 POC Glucose (mg/dL) 100 102 (65-110) mg/dL Random Glucose 105 D (75-110) mg/dL Calcium 7.8 L (8.6-10.4) mg/dl Phosphorus 2.6 (2.5-4.5) mg/dL Magnesium 2.0 (1.6-2.3) mg/dL Total Bilirubin 0.9 (0.2-1.3) mg/dL AST 40 (17-59) U/L ALT 59 (21-72) U/L Alkaline Phosphatase 65 (38-126) U/L Total Protein 6.0 L (6.3-8.3) g/dL Albumin 3.4 L (3.5-5.0) g/dL Globulin 2.7 (2.2-3.9) gm/dL Albumin/Globulin Ratio 1.3 (1.0-2.1) 04/05/18 04/05/18 04/05/18 Range/Units 06:08 05:45 05:36 WBC 12.0 H (4.8-10.8) K/uL RBC 3.67 L (4.40-5.90) Mil/uL Hgb 8.3 L (12.0-18.0) g/dL Hct 26.5 L (35.0-51.0) % MCV 72.2 L D (80.0-94.0) fL MCH 22.7 L (27.0-31.0) pg MCHC 31.4 L (33.0-37.0) g/dL RDW 14.6 H (11.5-14.5) % Plt Count 206 (130-400) K/uL MPV 8.3 (7.2-11.7) fL Neut % (Auto) 54.5 (50.0-75.0) % Lymph % (Auto) 36.8 (20.0-40.0) % [place] % (Auto) 5.8 (0.0-10.0) % Eos % (Auto) 2.4 (0.0-4.0) % Baso % (Auto) 0.5 (0.0-2.0) % Neut # (Auto) 6.5 (1.8-7.0) K/uL Lymph # (Auto) 4.4 H (1.0-4.3) K/uL [place] # (Auto) 0.7 (0.0-0.8) K/uL Eos # (Auto) 0.3 (0.0-0.7) K/uL Baso # (Auto) 0.1 (0.0-0.2) K/uL Puncture Site Rr pCO2 34 L (35-45) mm/Hg pO2 500 H (80-100) mm/Hg HCO3 23.9 (21-28) mmol/L ABG pH 7.43 (7.35-7.45) ABG Total CO2 23.6 (22-28) mmol/L ABG O2 Saturation 97.5 (95-98) % ABG Base Excess -1.4 (-2.0-3.0) mmol/L ABG Hemoglobin 8.3 L (11.7-17.4) g/dL ABG Carboxyhemoglobin 0 L (0.5-1.5) % POC ABG HHb (Measured) 2.5 (0.0-5.0) % ABG Methemoglobin 0.0 (0.0-3.0) % Frankie Test Pos A-a O2 Difference 171.0 mm/Hg Respiratory Index 0.3 Hgb O2 Saturation 97.4 (95.0-98.0) % Vent Mode Prvc Mechanical Rate 16 FiO2 100.0 % Tidal Volume 500 PEEP 5 Sodium (132-148) mmol/L Potassium (3.6-5.2) mmol/L Chloride (98-107) mmol/L Carbon Dioxide (22-30) mmol/L Anion Gap (10-20) BUN (9-20) mg/dL Creatinine (0.8-1.5) mg/dL Est GFR ( Amer) Est GFR (Non-Af Amer) POC Glucose (mg/dL) 91 (65-110) mg/dL Random Glucose (75-110) mg/dL Calcium (8.6-10.4) mg/dl Phosphorus (2.5-4.5) mg/dL Magnesium (1.6-2.3) mg/dL Total Bilirubin (0.2-1.3) mg/dL AST (17-59) U/L ALT (21-72) U/L Alkaline Phosphatase (38-126) U/L Total Protein (6.3-8.3) g/dL Albumin (3.5-5.0) g/dL Globulin (2.2-3.9) gm/dL Albumin/Globulin Ratio (1.0-2.1) 04/04/18 04/04/18 Range/Units 23:59 20:02 WBC 14.1 H (4.8-10.8) K/uL RBC 3.88 L (4.40-5.90) Mil/uL Hgb 8.6 L (12.0-18.0) g/dL Hct 26.7 L (35.0-51.0) % MCV 68.9 L (80.0-94.0) fL MCH 22.1 L (27.0-31.0) pg MCHC 32.1 L (33.0-37.0) g/dL RDW 14.9 H (11.5-14.5) % Plt Count 206 (130-400) K/uL MPV 7.7 (7.2-11.7) fL Neut % (Auto) (50.0-75.0) % Lymph % (Auto) (20.0-40.0) % [place] % (Auto) (0.0-10.0) % Eos % (Auto) (0.0-4.0) % Baso % (Auto) (0.0-2.0) % Neut # (Auto) (1.8-7.0) K/uL Lymph # (Auto) (1.0-4.3) K/uL [place] # (Auto) (0.0-0.8) K/uL Eos # (Auto) (0.0-0.7) K/uL Baso # (Auto) (0.0-0.2) K/uL Puncture Site pCO2 (35-45) mm/Hg pO2 (80-100) mm/Hg HCO3 (21-28) mmol/L ABG pH (7.35-7.45) ABG Total CO2 (22-28) mmol/L ABG O2 Saturation (95-98) % ABG Base Excess (-2.0-3.0) mmol/L ABG Hemoglobin (11.7-17.4) g/dL ABG Carboxyhemoglobin (0.5-1.5) % POC ABG HHb (Measured) (0.0-5.0) % ABG Methemoglobin (0.0-3.0) % Frankie Test A-a O2 Difference mm/Hg Respiratory Index Hgb O2 Saturation (95.0-98.0) % Vent Mode Mechanical Rate FiO2 % Tidal Volume PEEP Sodium (132-148) mmol/L Potassium (3.6-5.2) mmol/L Chloride (98-107) mmol/L Carbon Dioxide (22-30) mmol/L Anion Gap (10-20) BUN (9-20) mg/dL Creatinine (0.8-1.5) mg/dL Est GFR ( Amer) Est GFR (Non-Af Amer) POC Glucose (mg/dL) 95 (65-110) mg/dL Random Glucose (75-110) mg/dL Calcium (8.6-10.4) mg/dl Phosphorus (2.5-4.5) mg/dL Magnesium (1.6-2.3) mg/dL Total Bilirubin (0.2-1.3) mg/dL AST (17-59) U/L ALT (21-72) U/L Alkaline Phosphatase (38-126) U/L Total Protein (6.3-8.3) g/dL Albumin (3.5-5.0) g/dL Globulin (2.2-3.9) gm/dL Albumin/Globulin Ratio (1.0-2.1) Laboratory Results - last 24 hr 04/04/18 04/04/18 04/05/18 20:02 23:59 05:36 WBC 14.1 H RBC 3.88 L Hgb 8.6 L Hct 26.7 L MCV 68.9 L MCH 22.1 L MCHC 32.1 L RDW 14.9 H Plt Count 206 MPV 7.7 Neut % (Auto) Lymph % (Auto) [place] % (Auto) Eos % (Auto) Baso % (Auto) Neut # (Auto) Lymph # (Auto) [place] # (Auto) Eos # (Auto) Baso # (Auto) Puncture Site Rr pCO2 34 L pO2 500 H HCO3 23.9 ABG pH 7.43 ABG Total CO2 23.6 ABG O2 Saturation 97.5 ABG Base Excess -1.4 ABG Hemoglobin 8.3 L ABG Carboxyhemoglobin 0 L POC ABG HHb (Measured) 2.5 ABG Methemoglobin 0.0 Frankie Test Pos A-a O2 Difference 171.0 Respiratory Index 0.3 Hgb O2 Saturation 97.4 Vent Mode Prvc Mechanical Rate 16 FiO2 100.0 Tidal Volume 500 PEEP 5 Sodium Potassium Chloride Carbon Dioxide Anion Gap BUN Creatinine Est GFR ( Amer) Est GFR (Non-Af Amer) POC Glucose (mg/dL) 95 Random Glucose Calcium Phosphorus Magnesium Total Bilirubin AST ALT Alkaline Phosphatase Total Protein Albumin Globulin Albumin/Globulin Ratio 04/05/18 04/05/18 04/05/18 05:45 06:08 06:08 WBC 12.0 H RBC 3.67 L Hgb 8.3 L Hct 26.5 L MCV 72.2 L D MCH 22.7 L MCHC 31.4 L RDW 14.6 H Plt Count 206 MPV 8.3 Neut % (Auto) 54.5 Lymph % (Auto) 36.8 [place] % (Auto) 5.8 Eos % (Auto) 2.4 Baso % (Auto) 0.5 Neut # (Auto) 6.5 Lymph # (Auto) 4.4 H [place] # (Auto) 0.7 Eos # (Auto) 0.3 Baso # (Auto) 0.1 Puncture Site pCO2 pO2 HCO3 ABG pH ABG Total CO2 ABG O2 Saturation ABG Base Excess ABG Hemoglobin ABG Carboxyhemoglobin POC ABG HHb (Measured) ABG Methemoglobin Frankie Test A-a O2 Difference Respiratory Index Hgb O2 Saturation Vent Mode Mechanical Rate FiO2 Tidal Volume PEEP Sodium 140 Potassium 3.9 Chloride 112 H Carbon Dioxide 23 Anion Gap 10 BUN 15 Creatinine 0.9 Est GFR ( Amer) > 60 Est GFR (Non-Af Amer) > 60 POC Glucose (mg/dL) 91 Random Glucose 105 D Calcium 7.8 L Phosphorus 2.6 Magnesium 2.0 Total Bilirubin 0.9 AST 40 ALT 59 Alkaline Phosphatase 65 Total Protein 6.0 L Albumin 3.4 L Globulin 2.7 Albumin/Globulin Ratio 1.3 04/05/18 04/05/18 11:58 17:24 WBC RBC Hgb Hct MCV MCH MCHC RDW Plt Count MPV Neut % (Auto) Lymph % (Auto) [place] % (Auto) Eos % (Auto) Baso % (Auto) Neut # (Auto) Lymph # (Auto) [place] # (Auto) Eos # (Auto) Baso # (Auto) Puncture Site pCO2 pO2 HCO3 ABG pH ABG Total CO2 ABG O2 Saturation ABG Base Excess ABG Hemoglobin ABG Carboxyhemoglobin POC ABG HHb (Measured) ABG Methemoglobin Frankie Test A-a O2 Difference Respiratory Index Hgb O2 Saturation Vent Mode Mechanical Rate FiO2 Tidal Volume PEEP Sodium Potassium Chloride Carbon Dioxide Anion Gap BUN Creatinine Est GFR ( Amer) Est GFR (Non-Af Amer) POC Glucose (mg/dL) 102 100 Random Glucose Calcium Phosphorus Magnesium Total Bilirubin AST ALT Alkaline Phosphatase Total Protein Albumin Globulin Albumin/Globulin Ratio Radiology Impressions: Radiology Impressions Chest X-Ray 04/05/18 07:00 IMPRESSION: No active disease. Attending/Attestation - Attestation I have personally seen and examined this patient.: Yes I have fully participated in the care of the patient.: Yes I have reviewed all pertinent clinical information: Yes Notes (Text): 04/05/18 18:42 I have seen and examined the patient. Medical records, lab studies, and imaging were reviewed by me and a management plan was formulated on multidisciplinary rounds with resident Dr. Garcia. I agree with their documented assessment and plan. Patient more alert today, extubating to nasal canula oxygen. repeat head CT tomorrow. Critical Care Time 35 minutes. Multi-disciplinary rounds were performed with house staff, nursing, speech therapy, respiratory therapy, pharmacy and nutrition with integrated input from the primary team/attending and other consulting services. The documented time is cumulative and includes review of patient data/exams/labs/chart review and examination of the patient on rounds and throughout the day; time is exclusive of any procedures or teaching time. <Liam Garcia - Last Filed: 04/05/18 21:24> CCU Subjective - Physician Review Subjective (Free Text): PGY-[address] Leilani Santiago service Patient is seen and examined at bedside. Patient s/p re-evacuation of hematoma. continues to be intubated, responding to verbal and tactile stimulus, motions with hands to be having discomfort from chest tube. ROS unattainable due to patient being intubated. no family at bedside at time of encounter. 04/05/18 21:19 Critical Care Time Spent (in minutes): 35 CCU Objective - Vital Signs / Intake & Output Vital Signs (Last 4 hours): Vital Signs Temp Pulse Resp BP Pulse Ox 04/05/18 13:00 78 11 L 100 04/05/18 12:59 76 11 L 124/66 100 04/05/18 12:00 99.2 F 77 11 L 100 04/05/18 11:59 78 15 125/69 100 04/05/18 11:00 74 11 L 100 04/05/18 10:59 70 10 L 114/53 L 100 04/05/18 10:55 109/53 L 04/05/18 10:00 75 11 L 100 04/05/18 09:59 74 11 L 109/53 L 100 Intake and Output (Last 8hrs): Intake & Output 04/04/18 04/05/18 04/05/18 22:59 06:59 14:59 Intake Total 350 100 200 Output Total 365 425 660 Balance -15 -325 -460 Weight 199 lb 4.766 oz Intake: IV 160 Intake, IV Amount 190 100 200 Left Antecubital 190 100 200 Right Antecubital 0 0 Oral 0 0 0 Output: Drainage 60 60 L frontoparietal 60 venticulostomy Left Medial Parietal 60 Urine 305 365 660 Urethral ([place]) 305 365 660 Other: # Bowel Movements 0 0 0 - Physical Exam Head: Positive for: Other (Left side parietal area gauze, mildly wet with sero sang fluid, drain in place ). Negative for: Tenderness, Swelling Pupils: Positive for: PERRL Conjunctiva: Positive for: Normal Mouth: Positive for: Moist Mucous Membranes Nose (Internal): Positive for: Normal Inspection Neck: Positive for: Normal Range of Motion Respiratory/Chest: Positive for: Clear to Auscultation, Other (intubated on vent ). Negative for: Respiratory Distress, Wheezes, Decreased Breath Sounds, Rales, Rhonchi Cardiovascular: Positive for: Regular Rate and Rhythm, Normal S1, S2 Abdomen: Positive for: Normal Bowel Sounds. Negative for: Tenderness, Distention Upper Extremity: Positive for: Normal Inspection Lower Extremity: Positive for: Normal Inspection Neurological: Positive for: Other (unttainable due to intubation status ) Skin: Positive for: Warm, Dry, Normal Color Psychiatric: Positive for: Alert - Medications Active Medications: Active Medications Generic Name Dose Route Start Last Admin Trade Name Freq PRN Reason Stop Dose Admin Acetaminophen 650 mg 04/02/18 20:14 04/02/18 20:43 Tylenol 325mg Tab PO 650 mg Q6 PRN Administration Pain, Mild (1-3) Levetiracetam 250 mg/ Sodium 102.5 mls @ 420 mls/hr 04/01/18 11:00 04/05/18 11:16 Chloride IVPB 420 mls/hr Q12H WALE Administration Cefepime HCl 1 gm/ Sodium 100 mls @ 100 mls/hr 04/04/18 10:00 04/05/18 09:30 Chloride IVPB 100 mls/hr Q12H WALE Administration Protocol Pantoprazole Sodium 40 mg 04/02/18 10:00 04/05/18 09:30 Protonix Inj IVP 40 mg DAILY WALE Administration - Patient Studies Lab Studies: Microbiology Studies 04/04/18 12:04 Urine Culture - Final Urine,[place] No Growth (<1,000 CFU/ML) Lab Studies 04/05/18 04/05/18 04/05/18 Range/Units 11:58 06:08 06:08 WBC 12.0 H (4.8-10.8) K/uL RBC 3.67 L (4.40-5.90) Mil/uL Hgb 8.3 L (12.0-18.0) g/dL Hct 26.5 L (35.0-51.0) % MCV 72.2 L D (80.0-94.0) fL MCH 22.7 L (27.0-31.0) pg MCHC 31.4 L (33.0-37.0) g/dL RDW 14.6 H (11.5-14.5) % Plt Count 206 (130-400) K/uL MPV 8.3 (7.2-11.7) fL Neut % (Auto) 54.5 (50.0-75.0) % Lymph % (Auto) 36.8 (20.0-40.0) % [place] % (Auto) 5.8 (0.0-10.0) % Eos % (Auto) 2.4 (0.0-4.0) % Baso % (Auto) 0.5 (0.0-2.0) % Neut # (Auto) 6.5 (1.8-7.0) K/uL Lymph # (Auto) 4.4 H (1.0-4.3) K/uL [place] # (Auto) 0.7 (0.0-0.8) K/uL Eos # (Auto) 0.3 (0.0-0.7) K/uL Baso # (Auto) 0.1 (0.0-0.2) K/uL Puncture Site pCO2 (35-45) mm/Hg pO2 (80-100) mm/Hg HCO3 (21-28) mmol/L ABG pH (7.35-7.45) ABG Total CO2 (22-28) mmol/L ABG O2 Saturation (95-98) % ABG Base Excess (-2.0-3.0) mmol/L ABG Hemoglobin (11.7-17.4) g/dL ABG Carboxyhemoglobin (0.5-1.5) % POC ABG HHb (Measured) (0.0-5.0) % ABG Methemoglobin (0.0-3.0) % Frankie Test A-a O2 Difference mm/Hg Respiratory Index Hgb O2 Saturation (95.0-98.0) % Vent Mode Mechanical Rate FiO2 % Tidal Volume PEEP Sodium 140 (132-148) mmol/L Potassium 3.9 (3.6-5.2) mmol/L Chloride 112 H (98-107) mmol/L Carbon Dioxide 23 (22-30) mmol/L Anion Gap 10 (10-20) BUN 15 (9-20) mg/dL Creatinine 0.9 (0.8-1.5) mg/dL Est GFR ( Amer) > 60 Est GFR (Non-Af Amer) > 60 POC Glucose (mg/dL) 102 (65-110) mg/dL Random Glucose 105 D (75-110) mg/dL Calcium 7.8 L (8.6-10.4) mg/dl Phosphorus 2.6 (2.5-4.5) mg/dL Magnesium 2.0 (1.6-2.3) mg/dL Total Bilirubin 0.9 (0.2-1.3) mg/dL AST 40 (17-59) U/L ALT 59 (21-72) U/L Alkaline Phosphatase 65 (38-126) U/L Total Protein 6.0 L (6.3-8.3) g/dL Albumin 3.4 L (3.5-5.0) g/dL Globulin 2.7 (2.2-3.9) gm/dL Albumin/Globulin Ratio 1.3 (1.0-2.1) 04/05/18 04/05/18 04/04/18 Range/Units 05:45 05:36 23:59 WBC (4.8-10.8) K/uL RBC (4.40-5.90) Mil/uL Hgb (12.0-18.0) g/dL Hct (35.0-51.0) % MCV (80.0-94.0) fL MCH (27.0-31.0) pg MCHC (33.0-37.0) g/dL RDW (11.5-14.5) % Plt Count (130-400) K/uL MPV (7.2-11.7) fL Neut % (Auto) (50.0-75.0) % Lymph % (Auto) (20.0-40.0) % [place] % (Auto) (0.0-10.0) % Eos % (Auto) (0.0-4.0) % Baso % (Auto) (0.0-2.0) % Neut # (Auto) (1.8-7.0) K/uL Lymph # (Auto) (1.0-4.3) K/uL [place] # (Auto) (0.0-0.8) K/uL Eos # (Auto) (0.0-0.7) K/uL Baso # (Auto) (0.0-0.2) K/uL Puncture Site Rr pCO2 34 L (35-45) mm/Hg pO2 500 H (80-100) mm/Hg HCO3 23.9 (21-28) mmol/L ABG pH 7.43 (7.35-7.45) ABG Total CO2 23.6 (22-28) mmol/L ABG O2 Saturation 97.5 (95-98) % ABG Base Excess -1.4 (-2.0-3.0) mmol/L ABG Hemoglobin 8.3 L (11.7-17.4) g/dL ABG Carboxyhemoglobin 0 L (0.5-1.5) % POC ABG HHb (Measured) 2.5 (0.0-5.0) % ABG Methemoglobin 0.0 (0.0-3.0) % Frankie Test Pos A-a O2 Difference 171.0 mm/Hg Respiratory Index 0.3 Hgb O2 Saturation 97.4 (95.0-98.0) % Vent Mode Prvc Mechanical Rate 16 FiO2 100.0 % Tidal Volume 500 PEEP 5 Sodium (132-148) mmol/L Potassium (3.6-5.2) mmol/L Chloride (98-107) mmol/L Carbon Dioxide (22-30) mmol/L Anion Gap (10-20) BUN (9-20) mg/dL Creatinine (0.8-1.5) mg/dL Est GFR ( Amer) Est GFR (Non-Af Amer) POC Glucose (mg/dL) 91 95 (65-110) mg/dL Random Glucose (75-110) mg/dL Calcium (8.6-10.4) mg/dl Phosphorus (2.5-4.5) mg/dL Magnesium (1.6-2.3) mg/dL Total Bilirubin (0.2-1.3) mg/dL AST (17-59) U/L ALT (21-72) U/L Alkaline Phosphatase (38-126) U/L Total Protein (6.3-8.3) g/dL Albumin (3.5-5.0) g/dL Globulin (2.2-3.9) gm/dL Albumin/Globulin Ratio (1.0-2.1) 04/04/18 04/04/18 04/04/18 Range/Units 20:02 17:52 14:35 WBC 14.1 H (4.8-10.8) K/uL RBC 3.88 L (4.40-5.90) Mil/uL Hgb 8.6 L (12.0-18.0) g/dL Hct 26.7 L (35.0-51.0) % MCV 68.9 L (80.0-94.0) fL MCH 22.1 L (27.0-31.0) pg MCHC 32.1 L (33.0-37.0) g/dL RDW 14.9 H (11.5-14.5) % Plt Count 206 (130-400) K/uL MPV 7.7 (7.2-11.7) fL Neut % (Auto) (50.0-75.0) % Lymph % (Auto) (20.0-40.0) % [place] % (Auto) (0.0-10.0) % Eos % (Auto) (0.0-4.0) % Baso % (Auto) (0.0-2.0) % Neut # (Auto) (1.8-7.0) K/uL Lymph # (Auto) (1.0-4.3) K/uL [place] # (Auto) (0.0-0.8) K/uL Eos # (Auto) (0.0-0.7) K/uL Baso # (Auto) (0.0-0.2) K/uL Puncture Site Rra pCO2 32 L (35-45) mm/Hg pO2 340 H (80-100) mm/Hg HCO3 22.9 (21-28) mmol/L ABG pH 7.43 (7.35-7.45) ABG Total CO2 22.2 (22-28) mmol/L ABG O2 Saturation 97.2 (95-98) % ABG Base Excess -2.6 L (-2.0-3.0) mmol/L ABG Hemoglobin 8.7 L (11.7-17.4) g/dL ABG Carboxyhemoglobin 0 L (0.5-1.5) % POC ABG HHb (Measured) 2.8 (0.0-5.0) % ABG Methemoglobin 0.0 (0.0-3.0) % Frankie Test Pos A-a O2 Difference 333.0 mm/Hg Respiratory Index 1.0 Hgb O2 Saturation 97.2 (95.0-98.0) % Vent Mode Prvc Mechanical Rate 16 FiO2 100.0 % Tidal Volume 500 PEEP 5 Sodium (132-148) mmol/L Potassium (3.6-5.2) mmol/L Chloride (98-107) mmol/L Carbon Dioxide (22-30) mmol/L Anion Gap (10-20) BUN (9-20) mg/dL Creatinine (0.8-1.5) mg/dL Est GFR ( Amer) Est GFR (Non-Af Amer) POC Glucose (mg/dL) 121 H (65-110) mg/dL Random Glucose (75-110) mg/dL Calcium (8.6-10.4) mg/dl Phosphorus (2.5-4.5) mg/dL Magnesium (1.6-2.3) mg/dL Total Bilirubin (0.2-1.3) mg/dL AST (17-59) U/L ALT (21-72) U/L Alkaline Phosphatase (38-126) U/L Total Protein (6.3-8.3) g/dL Albumin (3.5-5.0) g/dL Globulin (2.2-3.9) gm/dL Albumin/Globulin Ratio (1.0-2.1) Laboratory Results - last 24 hr 04/04/18 04/04/18 04/04/18 14:35 17:52 20:02 WBC 14.1 H RBC 3.88 L Hgb 8.6 L Hct 26.7 L MCV 68.9 L MCH 22.1 L MCHC 32.1 L RDW 14.9 H Plt Count 206 MPV 7.7 Neut % (Auto) Lymph % (Auto) [place] % (Auto) Eos % (Auto) Baso % (Auto) Neut # (Auto) Lymph # (Auto) [place] # (Auto) Eos # (Auto) Baso # (Auto) Puncture Site Rra pCO2 32 L pO2 340 H HCO3 22.9 ABG pH 7.43 ABG Total CO2 22.2 ABG O2 Saturation 97.2 ABG Base Excess -2.6 L ABG Hemoglobin 8.7 L ABG Carboxyhemoglobin 0 L POC ABG HHb (Measured) 2.8 ABG Methemoglobin 0.0 Frankie Test Pos A-a O2 Difference 333.0 Respiratory Index 1.0 Hgb O2 Saturation 97.2 Vent Mode Prvc Mechanical Rate 16 FiO2 100.0 Tidal Volume 500 PEEP 5 Sodium Potassium Chloride Carbon Dioxide Anion Gap BUN Creatinine Est GFR ( Amer) Est GFR (Non-Af Amer) POC Glucose (mg/dL) 121 H Random Glucose Calcium Phosphorus Magnesium Total Bilirubin AST ALT Alkaline Phosphatase Total Protein Albumin Globulin Albumin/Globulin Ratio 04/04/18 04/05/18 04/05/18 23:59 05:36 05:45 WBC RBC Hgb Hct MCV MCH MCHC RDW Plt Count MPV Neut % (Auto) Lymph % (Auto) [place] % (Auto) Eos % (Auto) Baso % (Auto) Neut # (Auto) Lymph # (Auto) [place] # (Auto) Eos # (Auto) Baso # (Auto) Puncture Site Rr pCO2 34 L pO2 500 H HCO3 23.9 ABG pH 7.43 ABG Total CO2 23.6 ABG O2 Saturation 97.5 ABG Base Excess -1.4 ABG Hemoglobin 8.3 L ABG Carboxyhemoglobin 0 L POC ABG HHb (Measured) 2.5 ABG Methemoglobin 0.0 Frankie Test Pos A-a O2 Difference 171.0 Respiratory Index 0.3 Hgb O2 Saturation 97.4 Vent Mode Prvc Mechanical Rate 16 FiO2 100.0 Tidal Volume 500 PEEP 5 Sodium Potassium Chloride Carbon Dioxide Anion Gap BUN Creatinine Est GFR ( Amer) Est GFR (Non-Af Amer) POC Glucose (mg/dL) 95 91 Random Glucose Calcium Phosphorus Magnesium Total Bilirubin AST ALT Alkaline Phosphatase Total Protein Albumin Globulin Albumin/Globulin Ratio 04/05/18 04/05/18 04/05/18 06:08 06:08 11:58 WBC 12.0 H RBC 3.67 L Hgb 8.3 L Hct 26.5 L MCV 72.2 L D MCH 22.7 L MCHC 31.4 L RDW 14.6 H Plt Count 206 MPV 8.3 Neut % (Auto) 54.5 Lymph % (Auto) 36.8 Elmore % (Auto) 5.8 Eos % (Auto) 2.4 Baso % (Auto) 0.5 Neut # (Auto) 6.5 Lymph # (Auto) 4.4 H [place] # (Auto) 0.7 Eos # (Auto) 0.3 Baso # (Auto) 0.1 Puncture Site pCO2 pO2 HCO3 ABG pH ABG Total CO2 ABG O2 Saturation ABG Base Excess ABG Hemoglobin ABG Carboxyhemoglobin POC ABG HHb (Measured) ABG Methemoglobin Frankie Test A-a O2 Difference Respiratory Index Hgb O2 Saturation Vent Mode Mechanical Rate FiO2 Tidal Volume PEEP Sodium 140 Potassium 3.9 Chloride 112 H Carbon Dioxide 23 Anion Gap 10 BUN 15 Creatinine 0.9 Est GFR ( Amer) > 60 Est GFR (Non-Af Amer) > 60 POC Glucose (mg/dL) 102 Random Glucose 105 D Calcium 7.8 L Phosphorus 2.6 Magnesium 2.0 Total Bilirubin 0.9 AST 40 ALT 59 Alkaline Phosphatase 65 Total Protein 6.0 L Albumin 3.4 L Globulin 2.7 Albumin/Globulin Ratio 1.3 Radiology Impressions: Radiology Impressions Chest X-Ray 04/05/18 07:00 IMPRESSION: No active disease. Fingerstick Blood Sugar Results: 102 Critical Care Progress Note - Vent Settings MODE:: PRVC TIDAL VOLUME:: 500 RESP RATE:: 16 FIO2:: 100 PEEP:: 5 Assessment/Plan - Assessment and Plan (Free Text) Plan: Patient is a 72 year old male with pmhx of HTN, DM and hyperurecemia admitted for worsening headaches for 2 weeks, CT shows 1.8 acute on chronic subdural hematoma, Left craniotomy for evacuation of hematoma pod #3, repeat left craniotomy for evacuation pod #1, currently intubated. Neuro: - Neurosx consult - Dr Srivastava - extubate today, nonrebreather mask 100% O2 - no platelets, no anticoagulation - f/u CT head in am -f/u am labs - cotinkristen Beck Pulm - Intubated at this time rr: 16, TV 500, Peep 5, Fio2 100 - Non rebreather 100% mask after intubation Cardio - monitor BP GI - HHD, supplement diet Renal - D5 NS at 75 mls ppx - protonix - SCDS Plan discussed with Dr Pamela Garcia, PGY-1 - Date & Time Date: 04/05/18 Time: 11:00
--- NOTE | 2018-04-05 20:34 | CP.PCM.PN ---
Subjective - Date & Time of Evaluation Date of Evaluation: 04/05/18 Time of Evaluation: 07:00 - Subjective Subjective: dictated Objective - Vital Signs/Intake and Output Vital Signs (last 24 hours): Temp Pulse Resp BP Pulse Ox 98.6 F 91 H 16 122/63 100 04/05/18 16:00 04/05/18 20:00 04/05/18 20:00 04/05/18 19:59 04/05/18 20:00 Intake and Output: 04/05/18 04/06/18 18:59 06:59 Intake Total 200 0 Output Total 1320 Balance -1120 0 - Medications Medications: Current Medications Acetaminophen (Tylenol 325mg Tab) 650 mg PO Q6 PRN PRN Reason: Pain, Mild (1-3) Last Admin: 04/02/18 20:43 Dose: 650 mg Levetiracetam 250 mg/ Sodium (Chloride) 102.5 mls @ 420 mls/hr IVPB Q12H [facility] Last Admin: 04/05/18 11:16 Dose: 420 mls/hr Cefepime HCl 1 gm/ Sodium (Chloride) 100 mls @ 100 mls/hr IVPB Q12H [facility]; Protocol Last Admin: 04/05/18 09:30 Dose: 100 mls/hr Pantoprazole Sodium (Protonix Inj) 40 mg IVP DAILY [facility] Last Admin: 04/05/18 09:30 Dose: 40 mg - Labs Labs: 04/05/18 06:08 04/05/18 06:08 PT 12.1 SECONDS (9.7-12.2) 04/03/18 06:32 INR 1.1 04/03/18 06:32 APTT 29 SECONDS (21-34) 04/03/18 06:32
[2018-04-06 06:30] LABS: BASO # 0.1 K/uL (0.0-0.2); BASO % 0.5 % (0.0-2.0); EOS # 0.3 K/uL (0.0-0.7); EOS % 2.8 % (0.0-4.0); HEMOGLOBIN 8.7 g/dL (12.0-18.0); LYMPH # 3.2 K/uL (1.0-4.3); LYMPH % 31.6 % (20.0-40.0); MEAN CELL VOLUME 81.2 fL (80.0-94.0); MEAN CORPUSCULAR HEMOGLOBIN 26.6 pg (27.0-31.0); MEAN CORPUSCULAR HGB CONC 32.8 g/dL (33.0-37.0); MEAN PLATELET VOLUME 8.1 fL (7.2-11.7); MONO # 0.9 K/uL (0.0-0.8); MONO % 9.1 % (0.0-10.0); NEUT # 5.7 K/uL (1.8-7.0); RBC 3.26 Mil/uL (4.40-5.90); RED CELL DISTRIBUTION WIDTH 14.2 % (11.5-14.5); WHITE BLOOD COUNT 10.3 K/uL (4.8-10.8)
[2018-04-06 06:55] LABS: ALB/GLOB RATIO 1.4 (1.0-2.1); ALBUMIN 3.9 g/dL (3.5-5.0); ALT/SGPT 70 U/L (21-72); AST/SGOT 43 U/L (17-59); BLOOD UREA NITROGEN 19 mg/dL (9-20); CALCIUM 8.5 mg/dl (8.6-10.4); GFR NON-AFRICAN AMERICAN > 60
--- NOTE | 2018-04-06 09:54 | CT ---
Date of service: 04/06/2018 PROCEDURE: CT HEAD WITHOUT CONTRAST. HISTORY: Follow-up evacuation subdural hematoma COMPARISON: Comparison made with prior CT scan brain 04/04/2018. TECHNIQUE: Axial computed tomography images were obtained through the head/brain without intravenous contrast. Radiation dose: Total exam DLP = 1198.29 mGy-cm. This CT exam was performed using one or more of the following dose reduction techniques: Automated exposure control, adjustment of the mA and/or kV according to patient size, and/or use of iterative reconstruction technique. FINDINGS: HEMORRHAGE: In situ subdural drainage catheter is again seen extending through a the left superior anterior parietal cayden hole.. The residual but smaller left-sided subdural hematoma that exhibits mixed attenuation remains. There is small amount of residual extra-axial air. The collection continues to exert moderate mass-effect on left cerebral hemisphere with inferior and right-sided compression-displacement of the left lateral ventricle and [id number] shift. Septum pellucidum shifted from left to right by approximately 12 mm.. Small amount of subdural hemorrhage is present within the left superior margin of the interhemispheric fissure. There is slight dilatation of the right temporal horn of likely due to mild compressive effects at the level of right foramen Monro. Small amount of extra-axial air subjacent to a left frontal scalp hematoma. Metallic skin closure marisol remain in place BRAIN: No mass effect or edema. No atrophy or chronic microvascular ischemic changes. VENTRICLES: As above.. CALVARIUM: As above.. PARANASAL SINUSES: Unremarkable as visualized. No significant inflammatory changes. MASTOID AIR CELLS: Unremarkable as visualized. No inflammatory changes. OTHER FINDINGS: None. IMPRESSION: In situ subdural drainage catheter again seen extending through a left superior anterior parietal cayden hole. There is a small to medium size residual left-sided subdural hematoma decreased in size overall size when compared with the prior study. The exhibits mixed attenuation with small amount of extra-axial air. Collection continues to exerts moderate mass effect with compressive effects on the left cerebral hemisphere in including left lateral ventricle with midline shift; septum pellucidum located approximately 12 mm to the right of midline. . Small amount of subdural hemorrhage is present within the left superior margin of the interhemispheric fissure. Slight dilatation right temporal subdural temporal horn.
[2018-04-06] MEDS: Cefepime 1 GM in Sodium Chloride 0.9% 100 ML IVPB SCH ×2 (10:18→22:28)
--- NOTE | 2018-04-06 10:54 | CP.PCM.PN ---
Subjective - Date & Time of Evaluation Date of Evaluation: 04/06/18 Time of Evaluation: 10:53 - Subjective Subjective: pt fully awake alert talking followingcommands SAVANNAH no drift good st not much drainage over [address] head much better no air less fluid Drain d/c'ed OOB adv act keep in ICU today Objective - Vital Signs/Intake and Output Vital Signs (last 24 hours): Temp Pulse Resp BP Pulse Ox 99.5 F 85 14 126/64 99 04/06/18 04:00 04/06/18 09:26 04/06/18 09:26 04/06/18 09:26 04/06/18 09:26 Intake and Output: 04/06/18 04/06/18 06:59 18:59 Intake Total 200 200 Output Total 650 Balance -450 200 - Medications Medications: Current Medications Acetaminophen (Tylenol 325mg Tab) 650 mg PO Q6 PRN PRN Reason: Pain, Mild (1-3) Last Admin: 04/02/18 20:43 Dose: 650 mg Levetiracetam 250 mg/ Sodium (Chloride) 102.5 mls @ 420 mls/hr IVPB Q12H [facility] Last Admin: 04/06/18 10:19 Dose: 420 mls/hr Cefepime HCl 1 gm/ Sodium (Chloride) 100 mls @ 100 mls/hr IVPB Q12H [facility]; Protoc ol Last Admin: 04/06/18 10:18 Dose: 100 mls/hr Pantoprazole Sodium (Protonix Inj) 40 mg IVP DAILY [facility] Last Admin: 04/06/18 10:19 Dose: 40 mg - Labs Labs: 04/06/18 06:24 04/06/18 06:21 PT 12.1 SECONDS (9.7-12.2) 04/03/18 06:32 INR 1.1 04/03/18 06:32 APTT 29 SECONDS (21-34) 04/03/18 06:32
[2018-04-06] MEDS: (Novolin R) Insulin Human Regular 100 units/ml vial SC SCH ×2 (16:24→22:28)
--- NOTE | 2018-04-06 19:04 | CP.PCM.PN ---
Subjective - Date & Time of Evaluation Date of Evaluation: 04/06/18 Time of Evaluation: 16:00 - Subjective Subjective: dictated Objective - Vital Signs/Intake and Output Vital Signs (last 24 hours): Temp Pulse Resp BP Pulse Ox 98.3 F 78 16 114/63 100 04/06/18 16:00 04/06/18 16:00 04/06/18 16:00 04/06/18 16:00 04/06/18 16:00 Intake and Output: 04/06/18 04/07/18 18:59 06:59 Intake Total 640 Output Total 175 Balance 465 - Medications Medications: Current Medications Acetaminophen (Tylenol 325mg Tab) 650 mg PO Q6 PRN PRN Reason: Pain, Mild (1-3) Last Admin: 04/06/18 12:47 Dose: 650 mg Levetiracetam 250 mg/ Sodium (Chloride) 102.5 mls @ 420 mls/hr IVPB Q12H [facility] Last Admin: 04/06/18 10:19 Dose: 420 mls/hr Cefepime HCl 1 gm/ Sodium (Chloride) 100 mls @ 100 mls/hr IVPB Q12H [facility]; Protocol Last Admin: 04/06/18 10:18 Dose: 100 mls/hr Insulin Human Regular (Novolin R) 0 unit SC ACHS [facility]; Protocol Last Admin: 04/06/18 16:24 Dose: Not Given Pantoprazole Sodium (Protonix Inj) 40 mg IVP DAILY [facility] Last Admin: 04/06/18 10:19 Dose: 40 mg - Labs Labs: 04/06/18 06:24 04/06/18 06:21 PT 12.1 SECONDS (9.7-12.2) 04/03/18 06:32 INR 1.1 04/03/18 06:32 APTT 29 SECONDS (21-34) 04/03/18 06:32
--- NOTE | 2018-04-07 00:28 | PN ---
DATE: 04/06/2018 SUBJECTIVE: The patient has been successfully extubated, and he is tolerating well. He is not in distress. He is on oxygen. He is afebrile, and then drain has been removed from the skull. PHYSICAL EXAMINATION: VITAL SIGNS: Blood pressure 114/63, pulse 78, respiratory rate 16, and temperature 98.3. LUNGS: Bilateral scattered rhonchi. CARDIOVASCULAR SYSTEM: S1 and S2 regular. ABDOMEN: Soft. ASSESSMENT: 1. Craniotomy for subdural, improved. 2. Anemia. 3. Respiratory failure, resolved. PLAN: Continue postop care in ICU. Monitor the patient. Rogelio Carroll MD
[2018-04-07] MEDS: (Novolin R) Insulin Human Regular 100 units/ml vial SC SCH ×4 (08:00→22:23)
--- NOTE | 2018-04-07 08:57 | CP.PCM.PN ---
Subjective - Date & Time of Evaluation Date of Evaluation: 04/07/18 Time of Evaluation: 08:56 - Subjective Subjective: awake alert follows commands no drift good st cont obs today Objective - Vital Signs/Intake and Output Vital Signs (last 24 hours): Temp Pulse Resp BP Pulse Ox 99.1 F 78 15 129/68 99 04/07/18 08:00 04/07/18 08:00 04/07/18 08:00 04/07/18 08:00 04/07/18 08:00 Intake and Output: 04/07/18 04/07/18 06:59 18:59 Intake Total 440 Output Total 1000 Balance -560 - Medications Medications: Current Medications Acetaminophen (Tylenol 325mg Tab) 650 mg PO Q6 PRN PRN Reason: Pain, Mild (1-3) Last Admin: 04/06/18 12:47 Dose: 650 mg Levetiracetam 250 mg/ Sodium (Chloride) 102.5 mls @ 420 mls/hr IVPB Q12H [facility] Last Admin: 04/06/18 22:28 Dose: 420 mls/hr Cefepime HCl 1 gm/ Sodium (Chloride) 100 mls @ 100 mls/hr IVPB Q12H [facility]; Protocol Last Admin: 04/06/18 22:28 Dose: 100 mls/hr Insulin Human Regular (Novolin R) 0 unit SC ACHS [facility]; Protocol Last Admin: 04/07/18 08:00 Dose: Not Given Pantoprazole Sodium (Protonix Inj) 40 mg IVP DAILY [facility] Last Admin: 04/06/18 10:19 Dose: 40 mg - Labs Labs: 04/06/18 06:24 04/06/18 06:21 PT 12.1 SECONDS (9.7-12.2) 04/03/18 06:32 INR 1.1 04/03/18 06:32 APTT 29 SECONDS (21-34) 04/03/18 06:32
[2018-04-07] MEDS: Cefepime 1 GM in Sodium Chloride 0.9% 100 ML IVPB SCH (10:30)
--- NOTE | 2018-04-07 21:02 | CP.PCM.PN ---
Subjective - Date & Time of Evaluation Date of Evaluation: 04/07/18 Time of Evaluation: 15:30 - Subjective Subjective: DICTATED Objective - Vital Signs/Intake and Output Vital Signs (last 24 hours): Temp Pulse Resp BP Pulse Ox 99.5 F 82 16 139/72 100 04/07/18 16:00 04/07/18 16:00 04/07/18 16:00 04/07/18 16:00 04/07/18 16:00 Intake and Output: 04/07/18 04/08/18 18:59 06:59 Intake Total 900 Output Total 800 Balance 100 - Medications Medications: Current Medications Acetaminophen (Tylenol 325mg Tab) 650 mg PO Q6 PRN PRN Reason: Pain, Mild (1-3) Last Admin: 04/07/18 20:36 Dose: 650 mg Levetiracetam 250 mg/ Sodium (Chloride) 102.5 mls @ 420 mls/hr IVPB Q12H [facility] Last Admin: 04/07/18 10:31 Dose: 420 mls/hr Insulin Human Regular (Novolin R) 0 unit SC ACHS [facility]; Protocol Last Admin: 04/07/18 18:06 Dose: Not Given Pantoprazole Sodium (Protonix Inj) 40 mg IVP DAILY [facility] Last Admin: 04/07/18 10:30 Dose: 40 mg - Labs Labs: 04/06/18 06:24 04/06/18 06:21 PT 12.1 SECONDS (9.7-12.2) 04/03/18 06:32 INR 1.1 04/03/18 06:32 APTT 29 SECONDS (21-34) 04/03/18 06:32
--- NOTE | 2018-04-08 02:26 | PN ---
DATE: 04/07/2018 SUBJECTIVE: The patient has some cough, mild sputum production. He denies any fever, chills, or rigors. He has some postop pain in the head at the site of surgery. Stitches are clean, healing. No shortness of breath. No nausea or vomiting. PHYSICAL EXAMINATION: VITAL SIGNS: Blood pressure 139/72, pulse 82, respiratory rate 16, and temperature 99.5. LUNGS: Decreased air entry. Positive rales and rhonchi. CARDIOVASCULAR SYSTEM: S1 and S2 are regular. ABDOMEN: Soft. ASSESSMENT: 1. Respiratory failure, status post extubation. 2. Subdural hematoma, status post evacuation. PLAN: Medical management. Monitor the patient. Rogelio Carroll MD
[2018-04-08] MEDS: (Novolin R) Insulin Human Regular 100 units/ml vial SC SCH ×4 (08:09→22:00)
--- NOTE | 2018-04-08 20:08 | CP.PCM.PN ---
Subjective - Date & Time of Evaluation Date of Evaluation: 04/08/18 Time of Evaluation: 07:01 - Subjective Subjective: dictated Objective - Vital Signs/Intake and Output Vital Signs (last 24 hours): Temp Pulse Resp BP Pulse Ox 98.3 F 84 16 164/84 H 95 04/08/18 16:00 04/08/18 16:00 04/08/18 16:00 04/08/18 16:00 04/08/18 16:00 Intake and Output: 04/08/18 04/09/18 18:59 06:59 Intake Total 600 Output Total 900 Balance -300 - Medications Medications: Current Medications Acetaminophen (Tylenol 325mg Tab) 650 mg PO Q6 PRN PRN Reason: Pain, Mild (1-3) Last Admin: 04/08/18 18:31 Dose: 650 mg Levetiracetam 250 mg/ Sodium (Chloride) 102.5 mls @ 420 mls/hr IVPB Q12H [facility] Last Admin: 04/08/18 10:29 Dose: 420 mls/hr Insulin Human Regular (Novolin R) 0 unit SC ACHS [facility]; Protocol Last Admin: 04/08/18 16:41 Dose: Not Given Pantoprazole Sodium (Protonix Inj) 40 mg IVP DAILY [facility] Last Admin: 04/08/18 10:28 Dose: 40 mg - Labs Labs: 04/06/18 06:24 04/06/18 06:21 PT 12.1 SECONDS (9.7-12.2) 04/03/18 06:32 INR 1.1 04/03/18 06:32 APTT 29 SECONDS (21-34) 04/03/18 06:32
[2018-04-08] MEDS ORDERED: Benzocaine/Menthol (Cepacol) Lozenge MT PRN (20:20)
--- NOTE | 2018-04-09 00:34 | PN ---
DATE: 04/08/2018 SUBJECTIVE: The patient is on telemetry. He is afebrile. Some cough. No shortness of breath. Saturating well. Some headache. Has sutures. No shortness of breath. No chest pain. No fever. PHYSICAL EXAMINATION: VITAL SIGNS: Blood pressure 152/76, pulse 82, respiratory rate 20, temperature 98.3. LUNGS: Clear. No rales. No rhonchi. CARDIOVASCULAR SYSTEM: S1 and S2, regular. ABDOMEN: Soft and nontender. Bowel sounds are positive. CENTRAL NERVOUS SYSTEM: Awake, alert, and oriented x3 with craniotomy wound clean on the skull. ASSESSMENT: 1. Subdural hematoma evacuation. 2. Hypertension. 3. Cough. PLAN: Continue current medications. Monitor patient. Rogelio Carroll MD
[2018-04-09] MEDS: (Novolin R) Insulin Human Regular 100 units/ml vial SC SCH ×4 (07:32→21:29)
--- NOTE | 2018-04-09 21:30 | CP.PCM.PN ---
Subjective - Date & Time of Evaluation Date of Evaluation: 04/09/18 Time of Evaluation: 11:24 - Subjective Subjective: dictated Objective - Vital Signs/Intake and Output Vital Signs (last 24 hours): Temp Pulse Resp BP Pulse Ox 99.0 F 83 20 134/84 98 04/09/18 16:00 04/09/18 16:00 04/09/18 16:00 04/09/18 16:00 04/09/18 16:00 Intake and Output: 04/09/18 04/10/18 18:59 06:59 Intake Total 700 Balance 700 - Medications Medications: Current Medications Acetaminophen (Tylenol 325mg Tab) 650 mg PO Q6 PRN PRN Reason: Pain, Mild (1-3) Last Admin: 04/08/18 18:31 Dose: 650 mg Benzocaine/Menthol (Cepacol Sore Throat) 1 christophe MT Q6 PRN PRN Reason: Sore Throat Last Admin: 04/09/18 05:38 Dose: 1 christophe Insulin Human Regular (Novolin R) 0 unit SC [facility]; Protocol Last Admin: 04/09/18 21:29 Dose: Not Given Levetiracetam (Keppra) 250 mg PO BID [facility] Last Admin: 04/09/18 18:52 Dose: 250 mg Losartan Potassium (Cozaar) 25 mg PO DAILY [facility] Pantoprazole Sodium (Protonix Ec Tab) 40 mg PO DAILY [facility] - Labs Labs: 04/06/18 06:24 04/06/18 06:21 PT 12.1 SECONDS (9.7-12.2) 04/03/18 06:32 INR 1.1 04/03/18 06:32 APTT 29 SECONDS (21-34) 04/03/18 06:32
--- NOTE | 2018-04-09 23:44 | PN ---
DATE: 04/09/2018 SUBJECTIVE: The patient is medically stable. He is afebrile, but he needs physiotherapy and possible inpatient subacute rehab because he is not able to ambulate. He is status post evacuation of subdural hematoma with craniotomy. He is afebrile. Slight cough. No chest pain. No nausea or vomiting. PHYSICAL EXAMINATION: VITAL SIGNS: Blood pressure is 134/84, pulse 83, respiratory rate 20, temperature 99. LUNGS: Clear. No rales. No rhonchi. CARDIOVASCULAR SYSTEM: S1 and S2, regular. No heaves, no thrills. ABDOMEN: Soft. Nontender. Bowel sounds are positive. ASSESSMENT: 1. Subdural hematoma, status post craniotomy. The patient is on physiotherapy for ambulation most likely inpatient. 2. Hypertension. 3. Tracheobronchitis. PLAN: Continue current medication, physical therapy, subacute rehab. Rogelio Carroll MD
[2018-04-10] MEDS: (Novolin R) Insulin Human Regular 100 units/ml vial SC SCH ×4 (08:00→21:48)
[2018-04-10] MEDS: Pantoprazole 40 mg EC Tab PO SCH (09:31)
[2018-04-10 18:17] VITALS: RESP 20; O2SAT 95
--- NOTE | 2018-04-10 21:43 | CP.PCM.PN ---
Subjective - Date & Time of Evaluation Date of Evaluation: 04/10/18 Time of Evaluation: 14:40 - Subjective Subjective: dictated Objective - Vital Signs/Intake and Output Vital Signs (last 24 hours): Temp Pulse Resp BP Pulse Ox 98.6 F 85 20 117/69 95 04/10/18 18:15 04/10/18 18:15 04/10/18 18:15 04/10/18 18:15 04/10/18 18:15 Intake and Output: 04/10/18 04/11/18 18:59 06:59 Intake Total 850 Output Total 700 350 Balance 150 -350 - Medications Medications: Current Medications Acetaminophen (Tylenol 325mg Tab) 650 mg PO Q6 PRN PRN Reason: Pain, Mild (1-3) Last Admin: 04/08/18 18:31 Dose: 650 mg Benzocaine/Menthol (Cepacol Sore Throat) 1 christophe MT Q6 PRN PRN Reason: Sore Throat Last Admin: 04/09/18 05:38 Dose: 1 christophe Insulin Human Regular (Novolin R) 0 unit SC [facility]; Protocol Last Admin: 04/10/18 16:43 Dose: Not Given Levetiracetam (Keppra) 250 mg PO BID [facility] Last Admin: 04/10/18 18:22 Dose: 250 mg Losartan Potassium (Cozaar) 25 mg PO DAILY [facility] Last Admin: 04/10/18 09:30 Dose: 25 mg Pantoprazole Sodium (Protonix Ec Tab) 40 mg PO DAILY [facility] Last Admin: 04/10/18 09:31 Dose: 40 mg - Labs Labs: 04/06/18 06:24 04/06/18 06:21 PT 12.1 SECONDS (9.7-12.2) 04/03/18 06:32 INR 1.1 04/03/18 06:32 APTT 29 SECONDS (21-34) 04/03/18 06:32
--- NOTE | 2018-04-11 04:41 | PN ---
DATE: 04/10/2018 SUBJECTIVE: The patient is for subacute rehab. He is afebrile. No shortness of breath. He is on physiotherapy, and he is cooperating well. PHYSICAL EXAMINATION: VITAL SIGNS: Blood pressure 117/69, pulse 81, respiratory rate 20, and temperature 98.3. LUNGS: Clear. CARDIOVASCULAR SYSTEM: S1, S2 regular. ABDOMEN: Soft. ASSESSMENT: 1. Subdural hematoma, status post evacuation. 2. Hypertension. PLAN: Continue current medication. Monitor the patient. Rogelio Carroll MD
[2018-04-11] MEDS: (Novolin R) Insulin Human Regular 100 units/ml vial SC SCH ×2 (07:30→12:49)
[2018-04-11] MEDS: Pantoprazole 40 mg EC Tab PO SCH (11:02)
[2018-04-11 13:56] LABS: BASO # 0.1 K/uL (0.0-0.2); BASO % 0.6 % (0.0-2.0); EOS # 0.3 K/uL (0.0-0.7); EOS % 2.2 % (0.0-4.0); HEMOGLOBIN 9.1 g/dL (12.0-18.0); LYMPH # 5.4 K/uL (1.0-4.3); LYMPH % 44.2 % (20.0-40.0); MEAN CORPUSCULAR HEMOGLOBIN 21.8 pg (27.0-31.0); MEAN CORPUSCULAR HGB CONC 30.9 g/dL (33.0-37.0); MEAN PLATELET VOLUME 7.4 fL (7.2-11.7); MONO % 8.3 % (0.0-10.0); NEUT # 5.5 K/uL (1.8-7.0); NEUT % 44.7 % (50.0-75.0); RBC 4.17 Mil/uL (4.40-5.90); RED CELL DISTRIBUTION WIDTH 14.5 % (11.5-14.5); WHITE BLOOD COUNT 12.2 K/uL (4.8-10.8)
[2018-04-11 14:00] LABS: MEAN CELL VOLUME 70.5 fL (80.0-94.0)
--- NOTE | 2018-04-11 14:11 | CP.PCM.PN ---
Subjective - Date & Time of Evaluation Date of Evaluation: 04/11/18 Time of Evaluation: 11:35 - Subjective Subjective: Patient seen today , awake, alert, NAD , move all extremities , denies any headache, dizziness, vss and labs reviewed - stable s/p Left craniotomy for evacuation of hematoma pod #9 Objective - Vital Signs/Intake and Output Vital Signs (last 24 hours): Temp Pulse Resp BP Pulse Ox 98.1 F 90 20 102/63 95 04/11/18 07:15 04/11/18 07:15 04/11/18 07:15 04/11/18 07:15 04/11/18 07:15 Intake and Output: 04/11/18 04/11/18 06:59 18:59 Intake Total 600 Output Total 600 300 Balance -600 300 - Medications Medications: Current Medications Acetaminophen (Tylenol 325mg Tab) 650 mg PO Q6 PRN PRN Reason: Pain, Mild (1-3) Last Admin: 04/08/18 18:31 Dose: 650 mg Benzocaine/Menthol (Cepacol Sore Throat) 1 christophe MT Q6 PRN PRN Reason: Sore Throat Last Admin: 04/09/18 05:38 Dose: 1 christophe Insulin Human Regular (Novolin R) 0 unit SC ACHS [facility]; Protocol Last Admin: 04/11/18 12:49 Dose: Not Given Levetiracetam (Keppra) 250 mg PO BID [facility] Last Admin: 04/11/18 11:02 Dose: 250 mg Losartan Potassium (Cozaar) 25 mg PO DAILY [facility] Last Admin: 04/11/18 11:02 Dose: 25 mg Pantoprazole Sodium (Protonix Ec Tab) 40 mg PO DAILY [facility] Last Admin: 04/11/18 11:02 Dose: 40 mg - Labs Labs: 04/11/18 13:45 04/06/18 06:21 PT 12.1 SECONDS (9.7-12.2) 04/03/18 06:32 INR 1.1 04/03/18 06:32 APTT 29 SECONDS (21-34) 04/03/18 06:32 Assessment and Plan - Assessment and Plan (Free Text) Assessment: A/P 72 year old male with pmhx of HTN, DM and hyperurecemia admitted for worsening headaches for 2 weeks, and acute on chronic subdural hematoma, s/p Left craniotomy for evacuation of hematoma pod #9 patient accepted at [facility] for rehab D/w Dr. Srivastava , cleared for discharge to rehab today an df/u with his office first week of apr D/w Dr. Carroll, stable for discharge to [facility] today and Dr. Carroll will follow the patient at [facility] Discharge [facility]
[2018-04-11 14:14] LABS: BLOOD UREA NITROGEN 21 mg/dL (9-20); GFR NON-AFRICAN AMERICAN > 60
[2018-04-11 16:26] VITALS: BP 110/69; PULSE 88; TEMP 98.6
--- NOTE | 2018-04-11 22:45 | CP.PCM.DIS ---
Provider - Provider Date of Admission: 04/01/18 10:14 Attending physician: Rogelio Fink MD Consults: 04/01/18 20:39 General Surgery Consult Routine Comment: Consulting Provider: Bhanu Nicole Consulting Physician: Bhanu Nicole Reason for Consult: SDH chronic Time Spent in preparation of Discharge (in minutes): 30 Hospital Course - Lab Results Lab Results: Micro Results 04/10/18 18:47 Naris MRSA Culture - Final MRSA NOT DETECTED 04/08/18 20:37 Nose MRSA Culture - Final MRSA NOT DETECTED 04/04/18 12:04 Urine,[place] Urine Culture - Final No Growth (<1,000 CFU/ML) 04/01/18 21:51 Nose MRSA Culture (Admit) - Final MRSA NOT DETECTED Most Recent Lab Values WBC 12.2 K/uL (4.8-10.8) H 04/11/18 13:45 RBC 4.17 Mil/uL (4.40-5.90) L 04/11/18 13:45 Hgb 9.1 g/dL (12.0-18.0) L 04/11/18 13:45 Hct 29.4 % (35.0-51.0) L 04/11/18 13:45 MCV 70.5 fL (80.0-94.0) L D 04/11/18 13:45 MCH 21.8 pg (27.0-31.0) L 04/11/18 13:45 MCHC 30.9 g/dL (33.0-37.0) L 04/11/18 13:45 RDW 14.5 % (11.5-14.5) 04/11/18 13:45 Plt Count 485 K/uL (130-400) H D 04/11/18 13:45 MPV 7.4 fL (7.2-11.7) 04/11/18 13:45 Neut % (Auto) 44.7 % (50.0-75.0) L 04/11/18 13:45 Lymph % (Auto) 44.2 % (20.0-40.0) H 04/11/18 13:45 [place] % (Auto) 8.3 % (0.0-10.0) 04/11/18 13:45 Eos % (Auto) 2.2 % (0.0-4.0) 04/11/18 13:45 Baso % (Auto) 0.6 % (0.0-2.0) 04/11/18 13:45 Neut # (Auto) 5.5 K/uL (1.8-7.0) 04/11/18 13:45 Lymph # (Auto) 5.4 K/uL (1.0-4.3) H 04/11/18 13:45 [place] # (Auto) 1.0 K/uL (0.0-0.8) H 04/11/18 13:45 Eos # (Auto) 0.3 K/uL (0.0-0.7) 04/11/18 13:45 Baso # (Auto) 0.1 K/uL (0.0-0.2) 04/11/18 13:45 PT 12.1 SECONDS (9.7-12.2) 04/03/18 06:32 INR 1.1 04/03/18 06:32 APTT 29 SECONDS (21-34) 04/03/18 06:32 Puncture Site Rr 04/05/18 05:36 pCO2 34 mm/Hg (35-45) L 04/05/18 05:36 pO2 500 mm/Hg (80-100) H 04/05/18 05:36 HCO3 23.9 mmol/L (21-28) 04/05/18 05:36 ABG pH 7.43 (7.35-7.45) 04/05/18 05:36 ABG Total CO2 23.6 mmol/L (22-28) 04/05/18 05:36 ABG O2 Saturation 97.5 % (95-98) 04/05/18 05:36 ABG Base Excess -1.4 mmol/L (-2.0-3.0) 04/05/18 05:36 ABG Hemoglobin 8.3 g/dL (11.7-17.4) L 04/05/18 05:36 ABG Carboxyhemoglobin 0 % (0.5-1.5) L 04/05/18 05:36 POC ABG HHb (Measured) 2.5 % (0.0-5.0) 04/05/18 05:36 ABG Methemoglobin 0.0 % (0.0-3.0) 04/05/18 05:36 Frankie Test Pos 04/05/18 05:36 A-a O2 Difference 171.0 mm/Hg 04/05/18 05:36 Respiratory Index 0.3 04/05/18 05:36 Hgb O2 Saturation 97.4 % (95.0-98.0) 04/05/18 05:36 Vent Mode Prvc 04/05/18 05:36 Mechanical Rate 16 04/05/18 05:36 FiO2 100.0 % 04/05/18 05:36 Tidal Volume 500 04/05/18 05:36 PEEP 5 04/05/18 05:36 Sodium 135 mmol/L (132-148) 04/11/18 13:45 Potassium 4.0 mmol/L (3.6-5.2) 04/11/18 13:45 Chloride 100 mmol/L (98-107) 04/11/18 13:45 Carbon Dioxide 26 mmol/L (22-30) 04/11/18 13:45 Anion Gap 13 (10-20) 04/11/18 13:45 BUN 21 mg/dL (9-20) H 04/11/18 13:45 Creatinine 1.1 mg/dL (0.8-1.5) 04/11/18 13:45 Est GFR ( Amer) > 60 04/11/18 13:45 Est GFR (Non-Af Amer) > 60 04/11/18 13:45 POC Glucose (mg/dL) 127 mg/dL (65-110) H 04/11/18 16:40 Random Glucose 141 mg/dL (75-110) H D 04/11/18 13:45 Calcium 9.0 mg/dl (8.6-10.4) 04/11/18 13:45 Phosphorus 3.1 mg/dL (2.5-4.5) 04/06/18 06:21 Magnesium 2.3 mg/dL (1.6-2.3) 04/06/18 06:21 Total Bilirubin 1.2 mg/dL (0.2-1.3) 04/06/18 06:21 AST 43 U/L (17-59) 04/06/18 06:21 ALT 70 U/L (21-72) 04/06/18 06:21 Alkaline Phosphatase 87 U/L (38-126) 04/06/18 06:21 Total Protein 6.7 g/dL (6.3-8.3) 04/06/18 06:21 Albumin 3.9 g/dL (3.5-5.0) 04/06/18 06:21 Globulin 2.8 gm/dL (2.2-3.9) 04/06/18 06:21 Albumin/Globulin Ratio 1.4 (1.0-2.1) 04/06/18 06:21 Urine Color Yellow (YELLOW) 04/04/18 12:04 Urine Clarity Clear (Clear) 04/04/18 12:04 Urine pH 6.0 (5.0-8.0) 04/04/18 12:04 Ur Specific [place] 1.016 (1.003-1.030) 04/04/18 12:04 Urine Protein Negative mg/dL (NEGATIVE) 04/04/18 12:04 Urine Glucose (UA) Normal mg/dL (Normal) 04/04/18 12:04 Urine Ketones Negative mg/dL (NEGATIVE) 04/04/18 12:04 Urine Blood 2+ (NEGATIVE) H 04/04/18 12:04 Urine Nitrate Negative (NEGATIVE) 04/04/18 12:04 Urine Bilirubin Negative (NEGATIVE) 04/04/18 12:04 Urine Urobilinogen Normal mg/dL (0.2-1.0) 04/04/18 12:04 Ur Leukocyte Esterase Neg Herve/uL (Negative) 04/04/18 12:04 Urine WBC (Auto) 1 /hpf (0-5) 04/04/18 12:04 Urine RBC (Auto) 83 /hpf (0-3) H 04/04/18 12:04 Blood Type O POSITIVE 04/04/18 10:28 Antibody Screen Negative 04/04/18 10:28 Discharge Exam - Head Exam Head Exam: ATRAUMATIC, NORMAL INSPECTION, NORMOCEPHALIC Discharge Plan - Follow Up Plan Condition: GUARDED Disposition: REHAB FACILITY/REHAB UNIT Instructions: Heart Healthy Diet, Subdural Hematoma (DC), Craniotomy (DC) Additional Instructions: PLEASE ADMIT PATIENT UNDER DR. FINK SERVICE- PLEASE CALL DR. FINK UPON PATIENT ARRIVAL TO [facility] PLEASE F/U WITH DR. NICOLE OFFICE THE FIRST WEEK OF APRIL- CALL AND MAKE APPOINTMENT AND ARRANGE TRANSPORTATION ( VERY IMPORTANT F/U VISIT AFTER SURGERY) CONTINUE MEDICATION PER MED. REC. PLEASE DO LABS WEEKLY STARTING MONDAY Referrals: Rogelio Fink MD [Staff Provider] -
--- NOTE | 2018-04-12 08:48 | DS ---
DISCHARGE DIAGNOSES: 1. Subdural hematoma. 2. Hypertension. 3. Postoperative cough. HISTORY OF PRESENT ILLNESS: This is a 72-year-old [place] male who complained of headache with no obvious trauma. No prior history of head injury or intracerebral bleed. He came in with headache. He was found to have subdural hematoma. He underwent evacuation. Postoperatively, he ended up getting reintubated, and later on, he weaned off second time of the ventilator. The patient is afebrile. He is feeling well. He has difficultly ambulation so the patient is being transferred to subacute rehab. The patient is stable upon transfer. biopsy of the brain is positive for blood clot. PHYSICAL EXAMINATION: VITAL SIGNS: Blood pressure 111/69, pulse 88, respiratory rate 20, temperature 98.6. LUNGS: Clear. CARDIOVASCULAR SYSTEM: S1, S2 regular. ABDOMEN: Soft. ASSESSMENT: Subdural hematoma. PLAN: Discharge the patient to subacute rehab. Monitor the patient. Rogelio Carroll MD
== END 2018-04-11 16:57 | DRG 530 ==
LOC: C.ER 08:03 → C.9I 10:14 → C.9E 11:41 → C.9I 18:40 → C.6T 04-10 17:17
PROVIDERS: ADMIT Internal Medicine; ATTEND Internal Medicine
PROC: 00C40ZZ Extirpation of Matter from Intracranial Subdural Space, Open Approach (ICD-10-PCS; principal; 2018-04-02 07:30)
PROC: 009400Z Drainage of Intracranial Subdural Space with Drainage Device, Open Approach (ICD-10-PCS; 2018-04-04)
PROC: 5A1945Z Respiratory Ventilation, 24-96 Consecutive Hours (ICD-10-PCS; 2018-04-04)
PROC: 0BH17EZ Insertion of Endotracheal Airway into Trachea, Via Natural or Artificial Opening (ICD-10-PCS; 2018-04-04)
DX: I62.01 Nontraumatic acute subdural hemorrhage (principal); J96.90 Respiratory failure, unspecified, unspecified whether with hypoxia or hypercapnia; G91.9 Hydrocephalus, unspecified; I10 Essential (primary) hypertension; I62.03 Nontraumatic chronic subdural hemorrhage; E11.9 Type 2 diabetes mellitus without complications; M10.9 Gout, unspecified; E78.00 Pure hypercholesterolemia, unspecified; E78.5 Hyperlipidemia, unspecified; J40 Bronchitis, not specified as acute or chronic; Z79.4 Long term (current) use of insulin; D64.9 Anemia, unspecified; M54.2 Cervicalgia

== ENCOUNTER 2018-05-23 16:47 | Outpatient (CLI) | payer MEDICAID | END 2018-05-23 16:48 | disposition home or self-care (01) | LOC: C.CTH 16:47 ==

== ENCOUNTER 2018-07-06 12:48 | Outpatient (CLI) | payer MEDICAID | END 2018-07-06 12:49 | disposition home or self-care (01) | LOC: C.CTH 12:48 ==